=== PATIENT | female | born 1975 | race Caucasian/White ===

== ENCOUNTER → 2017-12-22 17:48 | Outpatient (CLI) | payer BC, SELFPAY ==
--- NOTE | 2017-12-22 17:52 | CT_ITS ---
STUDY: CT RIGHT ELBOW WITHOUT CONTRAST REASON FOR EXAM: Female, 42 years old. Right elbow fracture. Follow-up RADIATION DOSAGE (If Supplied By Facility): CTDIvol = ( 24.58 ) mGy, DLP = ( 493 ) mGycm TECHNIQUE: Transaxial CT imaging of the elbow was performed. Sagittal and coronal images were reconstructed. Individualized dose optimization techniques were used for this CT. COMPARISON: None. FINDINGS: There is a healing fracture of the radius neck. There is also a healing chip fracture at the coronary process of the ulna. Normal visualized humerus. Normal radiocapitellar and ulnotrochlear articulations. The soft tissue structures are unremarkable. CT/Extremity Upper without Contra IMPRESSION: There is a healing fracture of the radius neck. There is also a healing chip fracture at the coronary process of the ulna. Electronically Signed: Melodie Cameron MD at 6:56 EDT Tel , Service support ,
== END ==
PROVIDERS: Visit Provider Orthopaedic Surgery
DX: S52.131D Displaced fracture of neck of right radius, subsequent encounter for closed fracture with routine healing (principal); X58.XXXD Exposure to other specified factors, subsequent encounter
CPT/HCPCS: 73200

== ENCOUNTER → 2018-02-13 07:07 | Outpatient (CLI) | payer BC, SELFPAY ==
--- NOTE | 2018-02-13 07:30 | RAD_ITS ---
STUDY: X-RAY CHEST REASON FOR EXAM: Female, 43 years old. Shortness of breath x4 months TECHNIQUE: PA and lateral views of the chest. COMPARISON: None. FINDINGS: The lungs are clear and expanded. There is no demonstrated pleural abnormality. Normal size heart. Normal mediastinum and angel. Normal visualized pulmonary arteries. Normal visualized aortic arch and descending thoracic aorta. Normal visualized thoracic spine. Normal visualized ribs, clavicles, and shoulders. There is no demonstrated abnormality of the visualized soft tissue structures of the upper abdomen. RAD/Chest PA and Lateral IMPRESSION: Normal x-ray examination of the chest. Electronically Signed: Jairo Castro DO at 16:42 EDT Tel , Service support ,
[2018-02-13 10:27] LABS: Absolute Lymphocyte Count 2.45 X10^3/ul (0.83-4.51); Absolute Neutrophil Count 7.6 X10^3/uL (2.0-7.7); Basophil# 0.05 X10^3/uL; Basophil% 0.4 % (0-1); Eosinophil# 0.23 X10^3/uL; Eosinophils% 2.1 % (0-5); Hematocrit 43.3 % (37-47); Hemoglobin 13.9 g/dl (12.0-15.0); Lymphocyte # 2.45 X10^3/ul (4.0); Mean Corp Hgb Conc 32.1 g/gl (32-36); Mean Corpuscular Hgb 26.9 pg (27.0-32.0); Mean Corpuscular Volume 83.8 fL (81-99); Mean Platelet Vol. 10.5 fl (6.2-12.0); Monocyte% 7.2 % (0-10); Neutrophil # 7.57 X10^3/uL (2.7-7.7); Neutrophil % 67.9 % (47-70); Platelet Count 359 K/mm3 (150-450); RBC Distribution Width CV 14.7 % (11.6-14.6); RBC Distribution Width SD 44.3 fl (35.1-43.9); Red Blood Count 5.17 M/mm3 (4.2-5.4); White Blood Count 11.1 K/mm3 (4.4-11.0)
[2018-02-13 10:28] LABS: POSITIVE COUNT NO; POSITIVE DIFFERENTIAL NO; POSITIVE MORPHOLOGY NO
[2018-02-13 10:51] LABS: Erythrocyte Sedimentation Rate 78 mm/hr (0-20)
[2018-02-13 10:55] LABS: ALB/GLOB Ratio 0.6 RATIO (0.9-2.4); AST(SGOT) 71 U/L (15-37); Alanine Aminotransfer ALT/SGPT 59 U/L (13-56); Albumin, Serum 3.2 g/dL (3.2-5.0); Alkaline Phosphatase 108 U/L (45-117); Anion Gap 7 (5-15); BUN 7 mg/dL (7-18); BUN/Creat Ratio 8.7 RATIO (10-20); Calcium,Total 8.8 mg/dL (8.5-10.1); Chloride 106 mmol/L (98-107); EST Glomerular Filtration Rate 83 mL/min (>60); Est Glom Filt Rate - Afr Amer 100 mL/min (>60); Glucose 117 mg/dL (74-106); Potassium 3.7 mmol/L (3.5-5.1); Protein, Total 8.2 g/dL (6.4-8.2); Sodium Level 138 mmol/L (136-145)
[2018-02-14 13:07] LABS: ASO Titer 76.8 IU/mL (0.0-200.0)
[2018-02-16 16:09] LABS: Anti-Centromere B Ab <0.2 AI (0.0-0.9); Anti-Chromatin <0.2 AI (0.0-0.9); Anti-Jo <0.2 AI (0.0-0.9); Anti-Scleroderma-70 AB <0.2 AI (0.0-0.9); Anti-ribosomal P Antibodies <0.2 AI (0.0-0.9); RNP Ab 0.5 AI (0.0-0.9); SJOGREN'S Anti-SS-A test < 0.2 AI (0.0-0.9); SJOGREN'S Anti-SS-B test < 0.2 AI (0.0-0.9); Smith Ab <0.2 AI (0.0-0.9); Smith/RNP Ab <0.2 AI (0.0-0.9)
[2018-02-17 11:42] LABS: Anti-dsDNA Ab 3 IU/mL (0-9)
== END ==
PROVIDERS: Visit Provider Dermatology Pediatric Dermatology
DX: L52 Erythema nodosum (principal)
CPT/HCPCS: 36415; 71046; 80053; 85025; 85652; 86038; 86060; 86225; 86235

== ENCOUNTER → 2018-07-06 10:33 | Outpatient (CLI) | payer BC, SELFPAY ==
[2018-07-06 11:56] LABS: Absolute Lymphocyte Count 2.41 X10^3/ul (0.83-4.51); Absolute Neutrophil Count 7.7 X10^3/uL (2.0-7.7); Basophil# 0.03 X10^3/uL; Basophil% 0.3 % (0-1); Eosinophils% 2.7 % (0-5); Hematocrit 40.3 % (37-47); Hemoglobin 12.8 g/dl (12.0-15.0); Lymphocyte # 2.41 X10^3/ul (4.0); Lymphocyte % 21.7 % (19-41); Mean Corp Hgb Conc 31.8 g/gl (32-36); Mean Corpuscular Hgb 25.5 pg (27.0-32.0); Mean Corpuscular Volume 80.3 fL (81-99); Mean Platelet Vol. 10.3 fl (6.2-12.0); Monocyte# 0.66 X10^3/uL; Monocyte% 5.9 % (0-10); Neutrophil # 7.67 X10^3/uL (2.7-7.7); Platelet Count 306 K/mm3 (150-450); RBC Distribution Width SD 43.4 fl (35.1-43.9); Red Blood Count 5.02 M/mm3 (4.2-5.4); White Blood Count 11.1 K/mm3 (4.4-11.0)
[2018-07-06 11:59] LABS: POSITIVE COUNT NO; POSITIVE DIFFERENTIAL NO; POSITIVE MORPHOLOGY NO
[2018-07-06 12:03] LABS: Erythrocyte Sedimentation Rate 55 mm/hr (0-20)
[2018-07-06 12:30] LABS: Anion Gap 10 (5-15); BUN 7 mg/dL (7-18); BUN/Creat Ratio 8.3 RATIO (10-20); Calcium,Total 8.8 mg/dL (8.5-10.1); Chloride 101 mmol/L (98-107); Creatinine, Serum 0.85 mg/dL (0.55-1.02); EST Glomerular Filtration Rate 78 mL/min (>60); Est Glom Filt Rate - Afr Amer 94 mL/min (>60); Glucose 170 mg/dL (74-106); Potassium 3.6 mmol/L (3.5-5.1); Sodium Level 137 mmol/L (136-145)
[2018-07-10 06:07] LABS: HEPATITIS B SURFACE AG Negative (Negative); Hepatitis A AB, Total Negative (Negative); Hepatitis A IgM Antibody Negative (Negative); Hepatitis B Core AB IgM Negative (Negative); Hepatitis B Core Ab Total Negative (Negative); Hepatitis C Ab <0.1 s/co ratio (0.0-0.9); QNTFERON TB Ag Minus Nil Value < 0 IU/mL (.); QNTFERON TB Ag Value 0.12 IU/mL (.); QNTFERON TB Mitogen Value > 10.00 IU/mL (.); QNTFERON TB Nil Value 0.15 IU/mL (.)
[2018-07-10 10:56] LABS: Hep B Surface Antibodies Non Reactive (.); QNTIFERON TB Gold Negative (Negative)
== END ==
PROVIDERS: Family Provider Family Medicine; PCP Family Medicine; Visit Provider Dermatology Pediatric Dermatology
DX: L40.0 Psoriasis vulgaris (principal); L52 Erythema nodosum; Z79.899 Other long term (current) drug therapy
CPT/HCPCS: 36415; 80048; 85025; 85652; 86480; 86704; 86705; 86706; 86708; 86709; 86803; 87340

== ENCOUNTER → 2018-07-23 15:03 | Outpatient (CLI) | payer BC, SELFPAY ==
--- NOTE | 2018-07-23 15:17 | RAD_ITS ---
STUDY: X-RAY - ABDOMEN/PELVIS REASON FOR EXAM: Female, 43 years old. Pain in both sides. History of kidney stone, ileostomy 2011. TECHNIQUE: Two AP supine views of the abdomen and pelvis. There is obesity, the entirety of soft tissue is not imaged. COMPARISON: CT abdomen pelvis 10/20/2017.. FINDINGS: Normal visualized lung bases. There is an unremarkable bowel gas pattern. There is no demonstrated free abdominal air. Right abdominal small bowel gas consistent with ileostomy. There are calcified phleboliths in the pelvis. Normal visualized osseous structures. RAD/Abdomen Single View IMPRESSION: Bilateral renal calculi seen on previous CT are not visualized. This may be due to body habitus. Electronically Signed: Azalea Arora MD at 7:31 EDT , Service support ,
== END ==
PROVIDERS: Family Provider Family Medicine; PCP Family Medicine; Referring Provider Urology; Visit Provider Urology
DX: R31.9 Hematuria, unspecified (principal); N20.1 Calculus of ureter
CPT/HCPCS: 74018; 87077; 87086; 87088; 87186

== ENCOUNTER → 2018-08-10 13:57 | Outpatient (CLI) | payer BC, SELFPAY ==
--- NOTE | 2018-08-10 14:06 | CT_ITS ---
STUDY: CT ABDOMEN AND PELVIS WITHOUT CONTRAST REASON FOR EXAM: Female, 43 years old. Hematuria. Bilateral flank pain. Recent passage of a stone. The patient has a history of a history of colitis with ileostomy. RADIATION DOSAGE (If Supplied By Facility): CTDIvol = ( 24.18 ) mGy, DLP = ( 1141.58 ) mGycm TECHNIQUE: Transaxial images were obtained from the dome of the diaphragm to the symphysis pubis without oral contrast, and without intravenous contrast. Sagittal and coronal images were reconstructed. Individualized dose optimization techniques were used for this CT. COMPARISON: Comparison is made with prior study dated October 20, 2017. FINDINGS: Stable mild increased markings at the left lung base suggestive of early atelectasis and/or scarring. The visualized portions of the heart are within normal limits. There is decreased attenuation of the liver consistent with steatosis. There are multiple small gallstones. Normal spleen. Normal pancreas. Normal bilateral adrenal glands. 3 mm nonobstructive calculus in the lower pole calyx of the right kidney. 3 mm nonobstructive calculus in the lower pole calyx of the left kidney. Normal visualized stomach. An ileostomy is seen in the right lower quadrant. There is evidence of a 4.7 cm defect along the anterior lateral aspect of the right abdominal wall at the site of the ileostomy. This may represent a hernia. This is unchanged. The patient is status post total colectomy. There is scattered atherosclerotic calcification of the abdominal aorta, without a demonstrated aneurysm. Normal inferior vena cava. Normal retroperitoneum. Normal urinary bladder. Normal abdominal wall. Normal osseous structures. CT/Abdomen/Pelvis without Cont IMPRESSION: Small bilateral nonobstructive intrarenal calculi. Status post colectomy with ileostomy in the right lower quadrant. Fatty infiltration of liver. Electronically Signed: Dylan Gross MD at 15:05 EDT Tel [phone], Service support ,
== END ==
PROVIDERS: Family Provider Family Medicine; PCP Family Medicine; Referring Provider Urology; Visit Provider Urology
DX: R31.9 Hematuria, unspecified (principal); R10.9 Unspecified abdominal pain
CPT/HCPCS: 74176

== ENCOUNTER → 2019-04-01 | Outpatient (CLI) | payer BC, SELFPAY ==
[2019-04-02 08:43] LABS: BNP,B-Type NATRIURETIC PEPTIDE 19.4 pg/mL (0-100)
== END | disposition home or self-care (01) ==
LOC: BFHLAB 14:52
PROVIDERS: Family Provider Family Medicine; PCP Family Medicine; Visit Provider Family Medicine
DX: R06.02 Shortness of breath (principal)
CPT/HCPCS: 36415; 83880

== ENCOUNTER → 2019-04-20 | Outpatient (CLI) | payer BC, SELFPAY ==
--- NOTE | 2019-04-20 14:01 | ECHOCS_ITS ---
Reason For Study: SOB Procedure This was a 2D Doppler, Color Flow transthoracic echocardiogram. The study was technically difficult. Contrast injection was performed. Exam performed in department. Left Ventricle Normal LV size. Left ventricular systolic function is normal. The estimated ejection fraction is 55 %. Transmitral doppler flow suggestive of impaired relaxation of left ventricle. No regional wall motion abnormalities noted. Right Ventricle Normal RV size. Normal systolic function. Atria Normal left atrium. Normal right atrium. No doppler evidence for ASD. Mitral Valve There is no mitral annular calcification. Normal mitral valve. Trivial mitral valve insufficiency. Tricuspid Valve Normal tricuspid valve. Trivial tricuspid valve insufficiency. Right ventricular systolic pressure estimated to be 29 mmHg. Aortic Valve Trisinus/trileaflet aortic valve. Normal aortic valve. Pulmonic Valve The pulmonic valve is not well visualized. Great Vessels Normal sized aortic root. Pericardium/Pleural No pericardial effusion. Medication 22 gauge I.V. with prn adaptor inserted into right arm. Diluted definity 4ml given slow IV push to enhance endocardial definition. MMode/2D Measurements & Calculations LVIDd: 4.6 cm IVSd: 1.0 cm Ao root diam: 3.0 cm LVIDs: 3.2 cm LVPWd: 0.80 cm RVDd: 3.6 cm FS: 30.7 % LAV(MOD-bp): 39.4 ml LA A4 area: 11.8 cm2 LA dimension(2D): 4.1 cm LAV(MOD-bp) Indexed: 16.3 ml/m2 LAV(MOD-sp2): 52.8 ml LAV(MOD-sp4): 25.5 ml RA A4 area: 10.3 cm2 Doppler Measurements & Calculations MV E max tanner: 66.8 cm/sec Lat Peak E' Tanner: 8.3 cm/sec Med Peak E' Tanner: 4.5 cm/sec MV A max tanner: 79.4 cm/sec E/E' lat: 8.1 E/E' med: 14.8 MV E/A: 0.84 Ao V2 max: 142.2 cm/sec LV V1 max: 103.6 cm/sec PA V2 max: 108.6 cm/sec Ao max P.1 mmHg LV V1 max P.3 mmHg TR max tanner: 252.7 cm/sec TR max P.6 mmHg Interpretation Summary The study was technically difficult. Contrast injection was performed. Left ventricular systolic function is normal. The estimated ejection fraction is 55 %. Trivial mitral valve insufficiency. Trivial tricuspid valve insufficiency. Right ventricular systolic pressure estimated to be 29 mmHg. Transmitral doppler flow suggestive of impaired relaxation of left ventricle Ordering Physician: Angelica Quezada Referring Physician: Angelica Quezada Performed By: Greyson, Ivana, RDCS
== END | disposition home or self-care (01) ==
LOC: CVS 13:59
PROVIDERS: Family Provider Family Medicine; PCP Family Medicine; Referring Provider Family Medicine; Visit Provider Family Medicine
DX: R06.02 Shortness of breath (principal); I10 Essential (primary) hypertension
CPT/HCPCS: 93306; Q9957; A4216; C8929

== ENCOUNTER 2019-04-22 08:49 | Day surgery (SDC) | payer BC, SELFPAY ==
--- NOTE | 2019-04-21 11:00 | EGD_PTH ---
PATIENT: VENKAT BECERRA LOC: EN U#:[id number] AGE/SX: 44/F ROOM: RE04/22/[address]: Dr. Elva Conley MD : 1975 BED: DIS: 04/22/2019 SPEC #: [id number] RECD: 04/22/19 10:31 STATUS: MALI HEATHER #: [id number] RONALD: 04/21/19 11:[address]: Elva Conley DEPT: SURGICAL PATHOLOGY RECD BY: Zachary Hastings ENTERED: 04/22/19 10:57 SP TYPE: EGD BIOPSY OTHR DR: Dr. Angelica Quezada MD Tissues: Gastric mucous membrane Procedures: Surgery Specimen Level IV HEADER OPERATION[place] [place] DIAGNOSIS: Anemia TISSUE SUBMITTED: Antrum biopsy for H. pylori and path MICROSCOPIC DIAGNOSIS Gastric antrum, biopsy: Chronic gastritis, mild to moderate. See comment. AM:christiana 04/23/19 COMMENT The results of immunohistochemistry for Helicobacter pylori will be reported separately ([id number]). MICROSCOPIC DESCRIPTION Slides are reviewed. GROSS DESCRIPTION Received in fixative is one container labeled with the patient's name and designated antrum biopsy. The specimen consists of multiple irregular fragments of light bob soft tissue that in aggregate measure 0.5 x 0.3 x 0.1 cm. The specimen is totally submitted in one cassette. / SJ:rg 04/22/19 TC:3 CPT: 83806
[2019-04-22 09:15] VITALS: BP 126/70; PULSE 75; RESP 14; TEMP 35.3; O2SAT 95; BMI 46.5
--- NOTE | 2019-04-22 09:24 | PCM.PN.BLA ---
Progress Note H&P on chart and reviewed, no changes from H&P
[2019-04-22 09:35] LABS: Bedside Glucose 240 mg/dL (70-110)
[2019-04-22 10:15] VITALS: BP 126/70; BP 136/70; PULSE 70; RESP 18; TEMP 36.3; O2SAT 97
--- NOTE | 2019-04-22 10:15 | OP.ENDO_ITS ---
04/22/2019 Angelica Quezada [place] [id number] [address] Re : Upper GI endoscopy procedure for Mone Xavier Dear Dr. Quezada This procedure was performed on April. My impressions and recommendations are as follows: Impressions : - Normal first portion of the duodenum and second portion of the duodenum. - Erythematous mucosa in the gastric body. Biopsied. - Small hiatal hernia. Recommendations : - Discharge patient to home (ambulatory). - Resume previous diet. - Continue present medications. - Await pathology results. - My office will telephone with pathology results in 1-2 weeks My findings are described in the full procedure note, which is enclosed. If I can be of further assistance, please feel free to contact me at Doctor phone number(s): , Work: . Sincerely, MD Elva Mo MD 04/22/2019 10:14:46 AM This report has been signed electronically.
[2019-04-22 10:20] VITALS: BP 126/70; BP 143/69; PULSE 73; RESP 18; O2SAT 96
[2019-04-22 10:25] VITALS: BP 126/70; BP 142/74; PULSE 68; RESP 18; O2SAT 94
[2019-04-22 10:30] VITALS: BP 126/70; BP 148/66; PULSE 66; RESP 18; TEMP 36.3; O2SAT 94
[2019-04-22 10:39] VITALS: BP 126/70
--- NOTE | 2019-04-22 11:00 | IMM_PTH ---
PATIENT: VENKAT BECERRA LOC: [facility] U#:[id number] AGE/SX: 44/F ROOM: RE04/22/[address]: Dr. Elva Conley MD : 1975 BED: DIS: 04/22/2019 SPEC #: [id number] RECD: 04/22/19 11:29 STATUS: MALI REQ #: [id number] RONALD: 04/22/19 11:[address]: Elva Cnoley DEPT: IMMUNOHISTOCHEMISTRY RECD BY: Lenora Campuzano ENTERED: 04/22/19 11:29 SP TYPE: IMMUNO OTHR DR: Dr. Angelica Quezada MD Tissues: Stomach, NOS Procedures: H Pylori (initial) PHYSICIAN & INSTITUTION [place] [id number] SPECIMEN INFORMATION: Tissue Source: Antrum biopsy Clinical Info: Anemia Specimen Number: [id number] CPT code: 80928 METHODOLOGY: Deparaffinized sections of prefer/formalin-fixed tissue or PAP/DQ stained slides are incubated with monoclonal/polyclonal antibodies/oligonucleotide probes. Localization is made via biotin free immunoperoxidase method. Appropriate controls are performed and reacted as expected. Results on target cell population are indicated in the following table: RESULTS: ANTIBODY / CLONE RESULT H Pylori (polyclonal) negative These tests were developed and their performance characteristics determined by [facility]. They may not have been cleared or approved by the U.S. Food and Drug Administration. The FDA has determined that such clearance or approval is not necessary. INTERPRETATION: Antrum biopsy: Negative for Helicobacter pylori organisms. AM:christiana 04/23/19
== END 2019-04-22 10:57 | disposition home or self-care (01) ==
LOC: EN 08:49 → AC 08:52
PROVIDERS: Family Provider Family Medicine; PCP Family Medicine; Referring Provider Family Medicine; Visit Provider Surgery
PROC: 0DJ08ZZ Inspection of Upper Intestinal Tract, Via Natural or Artificial Opening Endoscopic (ICD-10-PCS; CPT 43235; principal; 2019-04-22 10:55)
DX: K29.50 Unspecified chronic gastritis without bleeding (principal); K44.9 Diaphragmatic hernia without obstruction or gangrene; D50.9 Iron deficiency anemia, unspecified; J45.909 Unspecified asthma, uncomplicated; K21.9 Gastro-esophageal reflux disease without esophagitis; M19.90 Unspecified osteoarthritis, unspecified site; L40.50 Arthropathic psoriasis, unspecified; K51.90 Ulcerative colitis, unspecified, without complications; G47.30 Sleep apnea, unspecified; E66.01 Morbid (severe) obesity due to excess calories; Z68.42 Body mass index [BMI] 45.0-49.9, adult; E11.22 Type 2 diabetes mellitus with diabetic chronic kidney disease; I12.9 Hypertensive chronic kidney disease with stage 1 through stage 4 chronic kidney disease, or unspecified chronic kidney disease; N18.2 Chronic kidney disease, stage 2 (mild); F41.0 Panic disorder [episodic paroxysmal anxiety]; F32.9 Major depressive disorder, single episode, unspecified; Z87.442 Personal history of urinary calculi; Z90.49 Acquired absence of other specified parts of digestive tract; Z79.84 Long term (current) use of oral hypoglycemic drugs; Z79.899 Other long term (current) drug therapy; Z87.891 Personal history of nicotine dependence
CPT/HCPCS: 43239; 82962; 88305; 88342; J7120

== ENCOUNTER → 2019-04-27 | Outpatient (CLI) | payer BC, SELFPAY ==
[2019-04-22 09:15] VITALS: BMI 46.5
--- NOTE | 2019-04-27 08:15 | RAD_ITS ---
STUDY: X-RAY CHEST REASON FOR EXAM: Female, 44 years old. Shortness of breath TECHNIQUE: PA and lateral views of the chest. COMPARISON: February 13, 2018 FINDINGS: There are mild interstitial fibrotic changes of the lower lungs. There is no demonstrated pleural abnormality. Normal size heart. Normal mediastinum and angel. Normal visualized pulmonary arteries. Normal visualized aortic arch and descending thoracic aorta. Normal visualized thoracic spine. Normal visualized ribs, clavicles, and shoulders. There is no demonstrated abnormality of the visualized soft tissue structures of the upper abdomen. RAD/Chest PA and Lateral IMPRESSION: Degenerative changes, as described above. No demonstrated acute cardiopulmonary process. Electronically Signed: Reza Betts MD at 22:05 EDT , Service support ,
== END | disposition home or self-care (01) ==
LOC: HPRAD 08:14
PROVIDERS: Family Provider Family Medicine; PCP Family Medicine; Referring Provider Family Medicine; Visit Provider Family Medicine
DX: R06.02 Shortness of breath (principal)
CPT/HCPCS: 71046

== ENCOUNTER 2019-05-15 03:23 | Emergency (ER) | payer BC, SELFPAY ==
[2019-05-15 03:25] VITALS: BP 188/108; PULSE 92; RESP 22; TEMP 37.8; O2SAT 97; BMI 48.1
--- NOTE | 2019-05-15 03:43 | ED.DCSUM_ITS ---
History of Present Illness Chief Complaint: Abd Pain Detail of Chief Complaint: GI bleeding, abd pain Informant: Patient, Significant Other - Abdominal Pain/Flank Pain Onset: Today Context: Sudden Onset Timing: Continuous Quality: - - dark blood Location: - - in ileostomy Current Severity: Moderate Maximum Severity: Moderate Worsened by: Nothing Relieved by: Nothing - Nausea/Vomiting/Emesis GI Symptom: Nausea, Vomiting Quality: Nonbilious. Negative for: Blood streaks, Coffee ground, Hematemesis - Diarrhea/Melena/Hematochezia GI Symptom: Hematochezia Onset: Hours - 2 Associated Symptoms: Dysuria, Frequency, Urgency. Negative for: Hematuria Narrative: Patient presents with abdominal pain as well, but really presents because the bleeding in the ileostomy. She has had upper abdominal pain for months, and it is worse in the past day or 2. She also has some pain around her ileostomy in the right lower quadrant which is not new. None of the pain she is having is new. She had a EGD a couple weeks ago, according to records it showed a small amount of inflammation in the gastric antrum, biopsy returned showing chronic gastritis and negative H. pylori testing. She denies having any melena in her ileostomy prior to this. She takes no anticoagulants or antiplatelet medications. She was recently diagnosed with a neuroendocrine tumor in her pancreas by CT and subsequently MRI, she is awaiting a blood test to come back to determine further treatment, following with Dr. Melton. Also, she has been having urinary symptoms for several days, her primary doctor called in 3 days of [facility] for that. She has not had a urinalysis yet. She is only taken 1 of the pills and still has the urinary symptoms. - Past Medical History (1) Neuroendocrine tumor of pancreas Status: Chronic (2) GERD (gastroesophageal reflux disease) Status: Chronic (3) HTN (hypertension) Status: Chronic (4) Nephrolithiasis Status: Chronic (5) Psoriasis Status: Chronic (6) Ulcerative colitis Status: Chronic Comment: s/p total colectomy Ileostomy bag Past Medical History - Allergies and Home Meds Allergies/Adverse Reactions: Allergies codeine Allergy (Verified 10/20/17 18:43) Anaphylaxis hydrocodone bitartrate [From Vicodin] Allergy (Verified 04/20/19 11:34) Rash PT STATES RASH ONLY latex Allergy (Verified 10/20/17 18:43) Anaphylaxis oxycodone HCl [From Percocet] Allergy (Verified 10/20/17 18:43) Anaphylaxis Primary Care Physician: Angelica Quezada MD [Primary Care Provider] - Surgical History: appendectomy, herniorrhaphy Lives: Spouse/ Significant Other Smoking Status: Former smoker Drugs: None - Family History Maternal Family History: Reports: No pertinent history Review of Systems General: Denies: Chills, Fever, Sweats Eyes: Denies: Visual changes - bilaterally, Diplopia ENT: Denies: Rhinorrhea, Sore throat Cardiovascular: Denies: Chest pain, Palpitations Respiratory: Denies: Dyspnea, Cough, Dyspnea on exertion Gastrointestinal: Reports: Abdominal pain, Nausea, Vomiting, Hematochezia. Denies: Diarrhea, Melena Genitourinary: Reports: Dysuria, Frequency. Denies: Hematuria Musculoskeletal: Reports: Back pain - Abdominal pain radiates in the back, which is not new. Denies: Extremity Pain Skin: Denies: Rash, Wounds Neurological: Denies: Headache, Weakness, Numbness Physical Exam Vital Signs/Narrative: Vital Signs Temp Pulse Resp BP Pulse Ox 05/15/19 03:25 100.0 F H 92 22 H 188/108 H 97 General: Well nourished, Well developed, Obese, No Acute Distress Head: Normocephalic, Atraumatic Eyes: Perrl, EOMI ENT: Moist mucous membranes, No rhinorrhea Neck: Supple, Nontender Cardiovascular: Regular rate, Regular rhythm, No murmurs Respiratory: No distress, CTA bilaterally, Chest nontender Abdomen: Soft, Nondistended, Normal bowel sounds, No masses, Tender - Throughout upper abdomen, worst epigastric, also just right of ileostomy mildly, - - Normal-appearing stool present and ileostomy along with dark red blood, does not appear to be any active hemorrhaging. Negative for: Guarding, Rebound tenderness Back: Nontender, Normal Inspection Extremities: Nontender, No edema Skin: Normal color, No rash, No Trauma Neurological: Alert, Oriented x3, Cranial nerves II-XII grossly intact, Normal Strength, Normal Sensation, Normal Gait Psychological: Normal affect, Normal Mood Diagnostic/Tx/Re-eval Laboratory Results 05/15/19 05/15/19 05/15/19 03:37 03:37 03:53 WBC 12.7 H RBC 5.34 Hgb 16.4 H Hct 48.9 H MCV 91.6 MCH 30.7 MCHC 33.5 RDW Std Deviation 52.1 H RDW Coeff of Eleuterio 15.6 H Plt Count 232 MPV 9.7 Immature Gran % (Auto) 0.900 Neut % (Auto) 67.4 Lymph % (Auto) 22.8 Baxter % (Auto) 5.8 Eos % (Auto) 2.6 Baso % (Auto) 0.5 Absolute Neuts (auto) 8.5 H Absolute Lymphs (auto) 2.88 Nucleated RBC % 0 Sodium 135 L Potassium 3.5 Chloride 97 L Carbon Dioxide 29.0 Anion Gap 9 BUN 6 L Creatinine 1.01 Estim Creat Clear Calc 68.40 Est GFR (MDRD) Af Amer 76 Est GFR (MDRD) Non-Af 63 BUN/Creatinine Ratio 5.9 L Glucose 277 H Calcium 9.0 Total Bilirubin 0.50 AST 46 H ALT 56 Alkaline Phosphatase 176 H Total Protein 8.3 H Albumin 3.1 L Globulin 5.2 H Albumin/Globulin Ratio 0.6 L Lipase 178 Urine Color Urine Clarity Urine pH Ur Specific [place] Urine Protein Urine Glucose (UA) Urine Ketones Urine Occult Blood Urine Nitrite Urine Bilirubin Urine Urobilinogen Ur Leukocyte Esterase Urine RBC Urine WBC Ur Squamous Epith Cells Urine Bacteria Urine Mucus Blood Type O POSITIVE Antibody Screen NEGATIVE 05/15/19 04:53 WBC RBC Hgb Hct MCV MCH MCHC RDW Std Deviation RDW Coeff of Eleuterio Plt Count MPV Immature Gran % (Auto) Neut % (Auto) Lymph % (Auto) Baxter % (Auto) Eos % (Auto) Baso % (Auto) Absolute Neuts (auto) Absolute Lymphs (auto) Nucleated RBC % Sodium Potassium Chloride Carbon Dioxide Anion Gap BUN Creatinine Estim Creat Clear Calc Est GFR (MDRD) Af Amer Est GFR (MDRD) Non-Af BUN/Creatinine Ratio Glucose Calcium Total Bilirubin AST ALT Alkaline Phosphatase Total Protein Albumin Globulin Albumin/Globulin Ratio Lipase Urine Color Yellow Urine Clarity Sl. Cloudy Urine pH 5.0 Ur Specific [place] 1.020 Urine Protein 30 H Urine Glucose (UA) 1000 H Urine Ketones Negative Urine Occult Blood 10 H Urine Nitrite Negative Urine Bilirubin Negative Urine Urobilinogen Normal Ur Leukocyte Esterase 500 H Urine RBC 0-5 SEEN Urine WBC 25-50 SEEN Ur Squamous Epith Cells 0-5 SEEN Urine Bacteria RARE Urine Mucus 0 SEEN Blood Type Antibody Screen - Medical Decision Making Patient is not hemorrhaging into her ileostomy, and her hemoglobin is 16+. Furthermore, she is showing no signs of dehydration causing this number to look elevated, with a BUN of 6. This also argues against upper source of her GI bleeding. Therefore the area of gastritis that was recently seen on EGD is unlikely to be the source of bleeding, especially since she has no hematemesis or coffee-ground emesis. Her hemoglobin is probably high because she is iron deficient and recently had several iron infusions. Urinalysis shows signs of infection, which is not surprising given her symptoms. Cipro is no longer indicated as first-line treatment for cystitis. I do not think she has pyelonephritis. We will give her a dose of Rocephin in addition to a short course of Bactrim. Discussed the lower GI bleeding with Dr. Conley, who did her scope a couple weeks ago. Based on [id number] bleeding in her ileostomy, no new abdominal pains, and a hemoglobin of 16 with no tachycardia or hypotension, she agrees that outpatient follow-up with her surgeon at [facility] would be reasonable unless she develops life-threatening bleeding in which case, return to the ER immediately would be indicated and advised. I discussed all this with the patient she is comfortable with this plan. ED Disposition - Plan for ED Patient: Disposition: Home or Assisted Living Diagnosis: Lower GI bleeding, Acute cystitis without hematuria, Neuroendocrine tumor of pancreas, Upper abdominal pain, Accelerated hypertension Instructions: When You Have Gastrointestinal (GI) Bleeding Prescriptions: Smz/Tmp Ds [Bactrim Ds] 1 tab PO BID #6 tab Transmission Status: Pending to [id number] Referrals: surgeon, your [Other] (after the weekend if still bleeding) Angelica Quezada MD [Primary Care Provider] - 3-5 Days (For blood pressure recheck) Additional Instructions: Avoid taking any aspirin or ibuprofen while you are bleeding. If you develop severe bleeding, return to the emergency department.
[2019-05-15] MEDS: Ondansetron 4 MG/2 ML Vial IV (03:48)
[2019-05-15] MEDS: Morphine 4 MG/ML Syringe IV (03:52)
[2019-05-15 04:04] LABS: Absolute Lymphocyte Count 2.88 X10^3/uL (0.83-4.51); Absolute Neutrophil Count 8.5 X10^3/uL (2.0-7.7); Basophil# 0.06 X10^3/uL; Basophil% 0.5 % (0-1); Eosinophil# 0.33 X10^3/uL; Eosinophils% 2.6 % (0-5); Hematocrit 48.9 % (37-47); Hemoglobin 16.4 g/dL (12.0-15.0); Lymphocyte # 2.88 X10^3/ul (4.0); Lymphocyte % 22.8 % (19-41); Mean Corp Hgb Conc 33.5 g/dL (32-36); Mean Corpuscular Hgb 30.7 pg (27.0-32.0); Mean Corpuscular Volume 91.6 fL (81-99); Mean Platelet Vol. 9.7 fl (6.2-12.0); Monocyte# 0.74 X10^3/uL; Monocyte% 5.8 % (0-10); NRBC Flagged by Analyzer 0 % (0-5); Neutrophil # 8.52 X10^3/uL (2.7-7.7); Neutrophil % 67.4 % (47-70); Platelet Count 232 K/mm3 (150-450); RBC Distribution Width CV 15.6 % (11.6-14.6); RBC Distribution Width SD 52.1 fl (35.1-43.9); Red Blood Count 5.34 M/mm3 (4.2-5.4); White Blood Count 12.7 K/mm3 (4.4-11.0)
[2019-05-15 04:17] LABS: ALB/GLOB Ratio 0.6 RATIO (0.9-2.4); AST(SGOT) 46 U/L (15-37); Alanine Aminotransfer ALT/SGPT 56 U/L (13-56); Albumin, Serum 3.1 g/dL (3.2-5.0); Alkaline Phosphatase 176 U/L (45-117); Anion Gap 9 (5-15); BUN 6 mg/dL (7-18); BUN/Creat Ratio 5.9 RATIO (10-20); Chloride 97 mmol/L (98-107); Creatinine, Serum 1.01 mg/dL (0.55-1.02); EST Glomerular Filtration Rate 63 mL/min (>60); Est Glom Filt Rate - Afr Amer 76 mL/min (>60); Globulin 5.2 g/dL (2.2-4.2); Glucose 277 mg/dL (74-106); Lipase 178 U/L (73-393); Potassium 3.5 mmol/L (3.5-5.1); Protein, Total 8.3 g/dL (6.4-8.2); Sodium Level 135 mmol/L (136-145)
[2019-05-15 05:05] LABS: Mucous, Urine 0 SEEN /hpf (<or=2+)
--- NOTE | 2019-05-15 05:05 | ED.RN ---
DR ANN ROBISON FOR DR MENDOZA
[2019-05-15 05:14] LABS: Color, Urine Yellow (Yellow); Glucose, Dipstick 1000 mg/dl (Normal); Ketone-Dipstick Negative (Negative); Leukocyte Esterase-Dipstick 500 /ul (Negative); Nitrite-Dipstick Negative (Negative); Occult Blood-Urine 10 /ul (Negative); Protein-Dipstick 30 mg/dl (Negative); Urine Bilirubin Dipstick Negative (Negative); Urine Clarity Sl. Cloudy (Clear); Urine Urobilinogen Normal (Normal)
[2019-05-15 05:15] LABS: Bacteria RARE /hpf (None Seen); Red Blood Cells-Urine 0-5 SEEN /hpf (0-5); Squamous Epithelial Cells - UA 0-5 SEEN /hpf (5-10); White Blood Cells 25-50 SEEN /hpf (0-5)
[2019-05-15 05:23] VITALS: BP 147/94; RESP 15; O2SAT 91
[2019-05-15] MEDS: HYDROmorphone 1 MG/ML Syringe IV (05:25)
[2019-05-15] MEDS: Ceftriaxone 1 GM/50 ML BAG IV (05:29)
[2019-05-15 06:02] VITALS: BP 133/83; PULSE 77; RESP 15; O2SAT 91
== END 2019-05-15 06:15 | disposition home or self-care (01) ==
PROVIDERS: Emergency Provider Emergency Medicine; Family Provider Family Medicine; PCP Family Medicine
DX: K92.1 Melena (principal); N30.00 Acute cystitis without hematuria; R10.10 Upper abdominal pain, unspecified; I10 Essential (primary) hypertension; K21.9 Gastro-esophageal reflux disease without esophagitis; K51.90 Ulcerative colitis, unspecified, without complications; L40.9 Psoriasis, unspecified; E66.9 Obesity, unspecified; E61.1 Iron deficiency; D3A.8 Other benign neuroendocrine tumors; Z93.2 Ileostomy status; Z87.442 Personal history of urinary calculi; Z79.4 Long term (current) use of insulin; Z79.84 Long term (current) use of oral hypoglycemic drugs; Z79.899 Other long term (current) drug therapy; Z87.891 Personal history of nicotine dependence
CPT/HCPCS: 80053; 81001; 83690; 85025; 86850; 86900; 87086; 87088; 87106; 96365; 96374; 96375; 99283; J7050; A4216; J2405

== ENCOUNTER → 2019-05-24 | Outpatient (CLI) | payer BC, SELFPAY ==
[2019-05-15 03:25] VITALS: BMI 48.1
== END | disposition home or self-care (01) ==
LOC: BFHLAB 16:23
PROVIDERS: PCP Family Medicine; Visit Provider Family Medicine
DX: N39.0 Urinary tract infection, site not specified (principal)
CPT/HCPCS: 87086; 87088

== ENCOUNTER → 2019-06-07 | Outpatient (CLI) | payer BC, SELFPAY ==
[2019-05-15 03:25] VITALS: BMI 48.1
--- NOTE | 2019-06-07 09:00 | CYSPIN_PTH ---
PATIENT: VENKAT BECERRA LOC: [facility] U#:[id number] AGE/SX: 44/F ROOM: RE06/07/[address]: Kathy Calvin : 1975 BED: DIS: 06/07/2019 SPEC #: [id number] RECD: 06/08/19 14:04 STATUS: MALI HEATHER #: [id number] RONALD: 06/07/19 09:[address]: Kathy Calvin DEPT: CYTOLOGY RECD BY: Zachary Hastings ENTERED: 06/08/19 14:04 SP TYPE: CYSPIN FL OTHR DR: MD Kathy Pena, [employer] Tissues: Urine Procedures: Pap Stain (control) Special Stain Group II Cytospin Fluid HEADER OPERATION: Not noted PRE-OP DIAGNOSIS: Hematuria TISSUE SUBMITTED: Urine DIAGNOSIS CYTOLOGY Urine for cytology (Cytospin): Atypical urothelial cells noted, favor reactive. Marked acute inflammation. A few crystals are also noted. See comment. SINTIA:saul 06/09/19 COMMENT Repeat cytology is suggested after treatment for inflammation, if clinically indicated. Case has been reviewed in consultation with Dr. Delarosa who concurs with the above diagnosis. IDC:AM CYTOLOGY STUDY Slides are reviewed. CYTOLOGY GROSS Received is 25 ml of cloudy mercedes fluid labeled with the patient's name and and designated per the requisition as urine. Submitted for cytology preparation. /RB:cc 06/08/19 TC: 2 CPT: 38840
[2019-06-07 17:36] LABS: Cytology, Body Fluid / CSF SEE PATHOLOGY REPORT
== END | disposition home or self-care (01) ==
LOC: LABSPEC 17:21
PROVIDERS: Family Provider Family Medicine; PCP Family Medicine; Referring Provider Nurse Practitioner Adult Health
DX: R31.9 Hematuria, unspecified (principal)
CPT/HCPCS: 87077; 87086; 87088; 87186; 88108; 88313

== ENCOUNTER 2019-06-16 06:48 | Day surgery (SDC) | payer BC, SELFPAY ==
[2019-06-16] VITALS (10 sets, daily range): BP systolic 114–161; BP diastolic 72–102; PULSE 80–93; RESP 16–18; TEMP 35.9–36.4; O2SAT 92–98; BMI 47.2
[2019-06-16 07:18] LABS: Internal QC Validated? YES +Cl - CLEAR BKGD; Pregnancy, Urine Negative Negative
[2019-06-16 07:26] LABS: Bedside Glucose 298 mg/dL (70-110)
[2019-06-16] MEDS: Lactated Ringers 1,000 ML 100 ML IV ×2 (07:32→13:44)
[2019-06-16] MEDS: Cefazolin 2 GM in 0.9% Normal Saline 100 ML IV (08:46)
--- NOTE | 2019-06-16 08:50 | DCINST_ITS ---
Discharge Diet: Light diet - advance as tolerated Discharge Activity: Return to Normal Activity Call your doctor if your incision/area has: Sudden Increased Bleeding Call your doctor if you observe: Fever of 101 or Higher Instructions: Treating Kidney Stones: Ureteroscopic Stone Removal Allergies/Adverse Reactions: Allergies codeine Allergy (Verified 06/15/19 11:10) Anaphylaxis hydrocodone bitartrate [From Vicodin] Allergy (Verified 06/15/19 11:10) Rash PT STATES RASH ONLY latex Allergy (Verified 06/15/19 11:10) Anaphylaxis oxycodone HCl [From Percocet] Allergy (Verified 06/15/19 11:10) Anaphylaxis Medications to take at Discharge Albuterol Aerosols [Ventolin Aerosols] 2.5 mg INHALATION Q4H PRN PRN 08/25/13 Albuterol Inhaler [Ventolin Hfa] 2 puff INHALATION PRN PRN 08/25/13 Atenolol [Tenormin (beta abhi)] 25 mg PO DAILY 08/25/13 Omeprazole [Prilosec] 20 mg PO DAILY 08/25/13 Cetirizine HCl [Zyrtec] 10 mg PO DAILY PRN PRN 10/23/14 Budesonide/Formoterol 160/4.5 [Symbicort 160/4.5 Mcg Inhaler (SP)] 2 puff INHALATION BID #1 inhaler 11/10/15 Potassium Citrate [Urocit-K] 10 meq PO BID 02/21/16 Allopurinol 300 mg PO DAILY 10/20/17 Duloxetine Hcl [Cymbalta] 60 mg PO DAILY 10/20/17 Glipizide [Glipizide ER] 10 mg PO BID 04/20/19 Insulin Lispro [Humalog KwikPen] 0 unit SQ BID 05/15/19 Amoxicillin 875 mg PO TID 06/15/19 Cephalexin [Keflex] 500 mg PO Q8 #10 cap 06/16/19 Ketorolac [Toradol] 10 mg PO Q6H PRN PRN #10 tab 06/16/19 The following prescriptions were given: Cephalexin [Keflex] 500 mg PO Q8 #10 cap Prescription Printed Ketorolac [Toradol] 10 mg PO Q6H PRN PRN #10 tab PRN Reason: Pain Prescription Printed Primary Care Physician: Angelica Quezada MD [Primary Care Provider] - Test Results: Test results from this visit will be discussed in further detail at your follow- up appointment, if applicable. Please Follow Up With: Ranjan Kemp MD When: in 2 weeks, please call to make an appointment.
--- NOTE | 2019-06-16 09:38 | PCM.OPRPT ---
Report of Operation Date of Procedure: 06/16/19 Pre-Operative Diagnosis: Bilateral renal calculi with intermittent obstruction Post-Operative Diagnosis: Same Surgery/Procedure Performed:: Cystoscopy, left retrograde pyelogram, interpretation fluoroscopic images, left ureteroscopy laser lithotripsy of stone no stent. Right retrograde pyelogram, interpretation fluoroscopic images, right ureteroscopy laser lithotripsy of stone no stent. Description of Surgical Findings:: 44-year-old female with bilateral kidney stones presents today for bilateral ureteroscopy. She was taken back to the operating room after smooth induction of anesthesia he was placed in dorsolithotomy position the urethra and vaginal area were prepped and draped in usual sterile fashion, went into the bladder with a 21 Congolese rigid cystourethroscope inspected the entire bladder there were no tumors or stones within the bladder the trigone was normal the left and right ureter orifice were normal. I think cannulated the left ureteral orifice with a Glidewire, 0.035 flexible Glidewire advanced this up the ureter over the Glidewire I then advanced a dual-lumen catheter I was able to then perform a retrograde pyelogram to ensure that was in the ureter contrast went up into the kidney filled the kidney nicely after looking at the retrograde pyelogram I then flushed the port with normal saline and then placed a second Glidewire 0.35 flexible Glidewire. So at this point I then had a wire for safety and a working wire. Over the working wire went in with the flexible ureteroscope was able to get into the kidney and ureter easily without any problems. I then inspected the kidney upper pole midpole lower pole and I found the stone in the upper pole is about 5 mm in size I then performed laser lithotripsy in the stone until fragments a little tiny pieces that should pass on her own I inspected upper pole midpole lower pole again no other major fragments were seen I then worked my way down the ureter there is no tear injury and along the course of the ureter since the stones are small that should pass on her own decided not to leave a stent and I drained the bladder I then went back in. Identified the right ureteral orifice, I cannulated the right ureter orifice with a 0.035 flexible Glidewire advanced a wire up in the kidney over the wire went on with a dual-lumen catheter performed a retrograde pyelogram, after looking at the retrograde pyelogram that I placed a second wire up into the right kidney I then had a safety wire and a working wire over the working wire went in with a flexible ureteroscope was able to get into the kidney quite easily inspected the upper pole midpole lower pole I found the stone in the lower pole of the right kidney stone was then lasered using laser lithotripsy joules settings were 15 Hz and 0.6 J. After lasering the stone little tiny pieces with fragments of passing around the went were quite my way down the ureter no tear injury along the ureter was noted therefore no stent was placed small fragments were lasered should pass on her own. I then drained the bladder patient's anesthetic reversed no stents were placed and I will see her in a few weeks for follow-up. Type of Anesthesia:: General Drains: none - Admit VTE Documentation VTE Present on Admission: No VTE Mechan Device Prophylaxis: SCD's
[2019-06-16] MEDS: Ketorolac 15 MG/ML Vial IV (10:01)
[2019-06-16 10:11] LABS: Bedside Glucose 218 mg/dL (70-110)
[2019-06-16] MEDS: HYDROmorphone 2 MG TABLET PO (11:19)
[2019-06-16] MEDS: Cefazolin 1 GM/50 ML BAG IV (14:25)
[2019-06-16 15:16] LABS: Bedside Glucose 282 mg/dL (70-110)
--- NOTE | 2019-06-17 07:39 | OP.PCM_ITS ---
Report of Operation Date of Procedure: 06/16/19 Pre-Operative Diagnosis: severe renal colic Post-Operative Diagnosis: same Surgery/Procedure Performed:: cystoscopy bilateral stents Description of Surgical Findings:: 44-year-old female who undergone bilateral ureteroscopy with no stents he requested no stents for severe stent pain in the past. Procedure went well and did not place stents on either side. Unfortunately in the PACU patient had severe amount of pain and the pain would not resolve in its own or with pain medication, and therefore she?s taken back to surgery to place stents. Patient was taken back to the operating room after induction of a Mac local she is placed in dorsal lithotomy position, went in the bladder events a wire up in the right kidney over the wire place stents six Romanian by [address] ring on it for easy extraction, went to the left side Rodriguez wire up in the left kidney about the stent over this and left the string and the stent. Drained the bladder patient aesthetic was reversed taken back the PACU in good condition. Type of Anesthesia:: Local MAC Drains: stents - Admit VTE Documentation VTE Present on Admission: No
== END 2019-06-16 16:29 | disposition home or self-care (01) ==
LOC: SDC 06:48 → AC 06:49
PROVIDERS: Anesthesiology; Family Provider Family Medicine; PCP Family Medicine; Referring Provider Urology; Visit Provider Urology
PROC: 0TJ98ZZ Inspection of Ureter, Via Natural or Artificial Opening Endoscopic (ICD-10-PCS; CPT 52352; principal; 2019-06-16 08:40)
PROC: (CPT 52332; principal; 2019-06-16 14:10)
DX: N20.2 Calculus of kidney with calculus of ureter (principal); E11.9 Type 2 diabetes mellitus without complications; F41.9 Anxiety disorder, unspecified; F32.9 Major depressive disorder, single episode, unspecified; K21.9 Gastro-esophageal reflux disease without esophagitis; I10 Essential (primary) hypertension; J45.909 Unspecified asthma, uncomplicated; M79.7 Fibromyalgia; L40.52 Psoriatic arthritis mutilans; Z79.899 Other long term (current) drug therapy; Z79.4 Long term (current) use of insulin; Z79.51 Long term (current) use of inhaled steroids; Z87.891 Personal history of nicotine dependence
CPT/HCPCS: 00910; 00918; 52332; 52353; 76000; 81025; 82962; J7120; C1758; C1769; C2617; J2405

== ENCOUNTER → 2019-06-22 06:57 | Outpatient (CLI) | payer BC, SELFPAY ==
[2019-06-16 07:10] VITALS: BMI 47.2
--- NOTE | 2019-06-22 07:00 | CT_ITS ---
STUDY: CT CHEST WITHOUT CONTRAST REASON FOR EXAM: Female, 44 years old. History of interstitial lung disease, hypertension, asthma neuroendocrine tumor and pancreas RADIATION DOSAGE (If Supplied By Facility): CTDIvol = ( 20.15 ) mGy, DLP = ( 699.82 ) mGycm TECHNIQUE: Transaxial imaging was performed without the administration of intravenous contrast material. Individualized dose optimization techniques were used for this CT. COMPARISON: Report of previous study of 12/06/2011 FINDINGS: There is minimal linear fibrosis of the lung bases and left lingula. There are minimal emphysematous changes of the right middle lobe and right upper lobe. There is no demonstrated pleural abnormality. Normal heart and pericardium. Normal mediastinum. Normal hilar regions. Normal unenhanced pulmonary arteries. Normal aorta arch and descending thoracic aorta. Normal osseous structures. There is no demonstrated abnormality of the visualized upper abdomen. CT/Chest without Contrast IMPRESSION: Minimal linear fibrosis in the lung bases and left lingular. Minimal emphysematous changes of the right middle and upper lobes. Electronically Signed: Terrance Fernando MD at 17:24 EDT , Service support ,
== END ==
PROVIDERS: Family Provider Family Medicine; PCP Family Medicine; Referring Provider Family Medicine; Visit Provider Family Medicine
DX: R93.89 Abnormal findings on diagnostic imaging of other specified body structures (principal); R82.998 Other abnormal findings in urine
CPT/HCPCS: 71250; 87077; 87086; 87088; 87186

== ENCOUNTER → 2020-01-05 11:36 | Outpatient (CLI) | payer BC, SELFPAY ==
[2019-06-16 07:10] VITALS: BMI 47.2
[2020-01-05 15:29] LABS: Absolute Lymphocyte Count 2.13 X10^3/uL (0.83-4.51); Absolute Neutrophil Count 7.7 X10^3/uL (2.0-7.7); Basophil# 0.06 X10^3/uL; Basophil% 0.6 % (0-1); Eosinophils% 2.8 % (0-5); Hematocrit 49.7 % (37-47); Hemoglobin 16.3 g/dL (12.0-15.0); Lymphocyte # 2.13 X10^3/ul (4.0); Lymphocyte % 19.7 % (19-41); Mean Corp Hgb Conc 32.8 g/dL (32-36); Mean Corpuscular Hgb 29.4 pg (27.0-32.0); Mean Corpuscular Volume 89.5 fL (81-99); Mean Platelet Vol. 10.1 fl (6.2-12.0); Monocyte# 0.57 X10^3/uL; Monocyte% 5.3 % (0-10); NRBC Flagged by Analyzer 0 % (0-5); Neutrophil # 7.71 X10^3/uL (2.7-7.7); Platelet Count 229 K/mm3 (150-450); RBC Distribution Width SD 42.6 fl (35.1-43.9); Red Blood Count 5.55 M/mm3 (4.2-5.4); White Blood Count 10.8 K/mm3 (4.4-11.0)
[2020-01-05 15:43] LABS: Anion Gap 9 (5-15); BUN 8 mg/dL (7-18); BUN/Creat Ratio 9.8 RATIO (10-20); Calcium,Total 8.8 mg/dL (8.5-10.1); Chloride 102 mmol/L (98-107); Creatinine, Serum 0.82 mg/dL (0.55-1.02); EST Glomerular Filtration Rate 80 mL/min (>60); Est Glom Filt Rate - Afr Amer 97 mL/min (>60); Glucose 202 mg/dL (74-106); Potassium 3.7 mmol/L (3.5-5.1); Sodium Level 137 mmol/L (136-145)
== END ==
PROVIDERS: PCP Family Medicine; Referring Provider Family Medicine; Visit Provider Family Medicine
DX: R00.2 Palpitations (principal)
CPT/HCPCS: 36415; 80048; 83735; 85025

== ENCOUNTER → 2020-03-15 08:49 | Outpatient (CLI) | payer BC, SELFPAY ==
[2019-06-16 07:10] VITALS: BMI 47.2
[2020-03-15 09:34] LABS: Color, Urine Yellow (Yellow); Glucose, Dipstick 1000 mg/dl (Normal); Ketone-Dipstick 5 mg/dl (Negative); Leukocyte Esterase-Dipstick 25 /ul (Negative); Nitrite-Dipstick Negative (Negative); Occult Blood-Urine 10 /ul (Negative); Protein-Dipstick 30 mg/dl (Negative); Specific Gravity, Urine 1.025 (1.002-1.030); Urine Bilirubin Dipstick 1 mg/dL (Negative); Urine Clarity Sl. Cloudy (Clear); Urine Urobilinogen 1 mg/dl (Normal)
[2020-03-15 09:35] LABS: Internal QC Validated? YES +Cl - CLEAR BKGD; Pregnancy, Urine Negative Negative
== END ==
PROVIDERS: PCP Family Medicine
DX: K80.20 Calculus of gallbladder without cholecystitis without obstruction (principal)
CPT/HCPCS: 81002; 81025; 87086; 87088

== ENCOUNTER 2021-02-05 16:07 | Emergency (ER) | payer BC, SELFPAY ==
[2020-06-28 16:24] VITALS: BMI 47.2
[2021-02-05 16:08] VITALS: BP 168/119; PULSE 123; RESP 18; TEMP 36; O2SAT 94; BMI 44.4
[2021-02-05 16:28] VITALS: BP 169/108; PULSE 111; RESP 16; O2SAT 96
--- NOTE | 2021-02-05 16:46 | CT_ITS ---
INDICATION: epigastric abd pain EXAMINATION: CT Abdomen And Pelvis W/ Contrast Injection TECHNIQUE: Helically acquired images were obtained of the abdomen and pelvis after IV contrast. A radiation dose optimization technique was used for this scan. IV Contrast dosage and agent: 100 cc [id number] Oral contrast: None. COMPARISON: 08/10/2018. FINDINGS: Visualized lung bases: Bibasilar atelectasis. Liver: Unremarkable Gallbladder: Unremarkable Spleen: The spleen is mildly enlarged measuring up to 13.9 cm. Pancreas: There is trace mesenteric fat stranding surrounding the head and uncinate process of the pancreas as well as the second portion of the duodenum. Adrenal Glands: Unremarkable Kidneys: Unremarkable Vasculature: Unremarkable GI Tract: Status post colectomy with ileostomy in the right lower quadrant. There is evidence of a 5.8 cm defect along the anterior lateral aspect of the right abdominal wall at the site of the ileostomy with herniation of fat and small bowel. Lymphadenopathy: None Peritoneum: No ascites. Bladder: Unremarkable Reproductive organs: Unremarkable Bones/Soft tissues: No suspicious osseous or soft tissue lesions CT/Abdomen/Pelvis W IV Cont ONLY IMPRESSION: Subtle inflammation surrounding the pancreatic head/uncinate process and second portion of the duodenum. This could represent groove pancreatitis or duodenitis. Recommend correlation with lipase levels. Mild splenomegaly. Status post colectomy with ileostomy in the right lower quadrant. Electronically Signed: Wing Marino MD at 18:31 EDT Tel , Service support ,
--- NOTE | 2021-02-05 16:46 | EKG12_ITS ---
Test Reason : Blood Pressure : / mmHG Vent. Rate : 094 BPM Atrial Rate : 094 BPM P-R Int : 152 ms QRS Dur : 088 ms QT Int : 352 ms P-R-T Axes : 053 -27 046 degrees QTc Int : 440 ms Normal sinus rhythm Nonspecific ST abnormality Poor R wave progression Inferior PA, age undetermined, cannot be excluded Abnormal ECG Confirmed by AUGUSTUS CARVER, TED ([id number]), restaurant expeditor LUCILA FELICIANO ([id number]) on 02/08/2021 9:04:16 AM Referred By: ZAKIA Confirmed By:TED COFFMAN MD
--- NOTE | 2021-02-05 16:53 | ED.VIS.GI ---
History of Present Illness Chief Complaint: Abd Pain Informant: Patient Narrative: Patient is a 46-year-old female with complex medical history including ulcerative colitis status post colectomy and ileostomy and neuroendocrine tumor of the pancreas as well as diabetes mellitus, asthma, hypertension, Kidney stones and GERD presenting with worsening pain in her epigastric/left upper quadrant. Patient states been present for the past 2 weeks but is worsening today. She developed dry heaving today. Patient states her pain is worse when she eats or drinks. She is try to go to a liquid diet with no improvement. She denies any weight blood in her ostomy but notes that she has had increased green liquid ileostomy output. No other complaints at this time. No associated chest pain, shortness of breath, fever or chills. Patient does need a GI doctor that she is only supposed on the phone, Dr. Torres who had previously prescribed her, hyoscyamine, with no improvement. Prior similar symptoms: Yes - Pancreatitis Past Medical History - Allergies and Home Meds Allergies/Adverse Reactions: Allergies codeine Allergy (Verified 06/28/20 16:15) Anaphylaxis hydrocodone bitartrate [From Vicodin] Allergy (Verified 06/28/20 16:15) Rash PT STATES RASH ONLY latex Allergy (Verified 06/28/20 16:15) Anaphylaxis oxycodone HCl [From Percocet] Allergy (Verified 06/28/20 16:15) Anaphylaxis Primary Care Physician: Angelica Quezada MD [Primary Care Provider] - Past Medical History: - - Neuroendocrine tumor of the neuroendocrine tumor of the pancreas, kidney stones, ulcerative colitis, psoriasis, GERD, headaches, hypertension, diabetes mellitus Surgical History: appendectomy, herniorrhaphy, - - Total colectomy with ileostomy Lives: Spouse/ Significant Other Smoking Status: Former smoker - Family History Maternal Family History: Family History (Last Updated 06/28/20 @ 16:24 by Radha Gallegos) Other Diabetes Heart disease Liver cancer Lung disease Skin cancer Thyroid disorder Family History: Reports: No pertinent history Review of Systems General: Denies: Chills, Fever, Sweats Eyes: Denies: Visual changes - bilaterally, Diplopia ENT: Denies: Rhinorrhea, Sore throat Cardiovascular: Denies: Chest pain, Palpitations Respiratory: Denies: Dyspnea, Cough, Dyspnea on exertion Gastrointestinal: Reports: Abdominal pain, Nausea. Denies: Vomiting, Diarrhea, Melena, Hematochezia Genitourinary: Denies: Dysuria, Hematuria, Frequency Musculoskeletal: Denies: Back pain, Extremity Pain Skin: Denies: Rash, Wounds Neurological: Denies: Headache, Weakness, Numbness Physical Exam Vital Signs/Narrative: Vital Signs Temp Pulse Resp BP Pulse Ox 02/05/21 16:28 111 H 16 169/108 H 96 02/05/21 16:08 96.8 F L 123 H 18 168/119 H 94 Inital Vital Signs reviewed: Yes General: Well nourished, Well developed, No Acute Distress Head: Normocephalic, Atraumatic Eyes: Perrl, EOMI ENT: Moist mucous membranes, No rhinorrhea Neck: Supple, Nontender Cardiovascular: Regular rate, Regular rhythm, No murmurs Respiratory: No distress, CTA bilaterally, Chest nontender Abdomen: Soft, Nondistended, Normal bowel sounds, Tender - epigastric , - - Ileostomy with bilious output. Negative for: Guarding, Rebound tenderness Back: Nontender, Normal Inspection Extremities: Nontender, No edema Skin: Normal color, No rash Neurological: Alert, Oriented x3, Cranial nerves II-XII grossly intact, Normal Strength, Normal Sensation Psychological: Normal affect, Normal Mood Diagnostic/Tx/Re-eval Clinical Impression(s) from Imaging Studies Abdomen/Pelvis CT 02/05/21 16:46 IMPRESSION: Subtle inflammation surrounding the pancreatic head/uncinate process and second portion of the duodenum. This could represent groove pancreatitis or duodenitis. Recommend correlation with lipase levels. Mild splenomegaly. Status post colectomy with ileostomy in the right lower quadrant. Electronically Signed: Wing Marino MD at 18:31 EDT Tel , Service support , Laboratory Data 02/05/21 02/05/21 02/05/21 16:34 16:34 17:05 WBC 16.5 H RBC 5.97 H Hgb 17.7 H Hct 52.2 H MCV 87.4 MCH 29.6 MCHC 33.9 RDW Std Deviation 43.5 RDW Coeff of Eleuterio 13.8 Plt Count 273 MPV 10.1 Immature Gran % (Auto) 0.800 Neut % (Auto) 72.7 H Lymph % (Auto) 16.7 L [place] % (Auto) 5.3 Eos % (Auto) 4.0 Baso % (Auto) 0.5 Absolute Neuts (auto) 12.0 H Absolute Lymphs (auto) 2.76 Nucleated RBC % 0 Sodium 133 L Potassium 3.9 Chloride 100 Carbon Dioxide 25.0 Anion Gap 8 BUN 7 Creatinine 0.93 Estim Creat Clear Calc 72.72 Est GFR (MDRD) Af Amer 83 Est GFR (MDRD) Non-Af 69 BUN/Creatinine Ratio 7.5 L Glucose 195 H Lactic Acid 1.8 Calcium 9.4 Total Bilirubin 1.10 H Direct Bilirubin 0.31 H AST 30 ALT 44 Alkaline Phosphatase 184 H Troponin I < 0.015 Total Protein 8.9 H Albumin 3.4 Globulin 5.5 H Lipase 93 Urine Color Urine Clarity Urine pH Ur Specific [place] Urine Protein Urine Glucose (UA) Urine Ketones Urine Occult Blood Urine Nitrite Urine Bilirubin Urine Urobilinogen Ur Leukocyte Esterase Urine RBC Urine WBC Ur Squamous Epith Cells Urine Bacteria Urine Mucus 02/05/21 18:40 WBC RBC Hgb Hct MCV MCH MCHC RDW Std Deviation RDW Coeff of Eleuterio Plt Count MPV Immature Gran % (Auto) Neut % (Auto) Lymph % (Auto) [place] % (Auto) Eos % (Auto) Baso % (Auto) Absolute Neuts (auto) Absolute Lymphs (auto) Nucleated RBC % Sodium Potassium Chloride Carbon Dioxide Anion Gap BUN Creatinine Estim Creat Clear Calc Est GFR (MDRD) Af Amer Est GFR (MDRD) Non-Af BUN/Creatinine Ratio Glucose Lactic Acid Calcium Total Bilirubin Direct Bilirubin AST ALT Alkaline Phosphatase Troponin I Total Protein Albumin Globulin Lipase Urine Color Yellow Urine Clarity Clear Urine pH 6.0 Ur Specific [place] 1.015 Urine Protein 15 H Urine Glucose (UA) Normal Urine Ketones 15 H Urine Occult Blood 10 H Urine Nitrite Negative Urine Bilirubin Negative Urine Urobilinogen Normal Ur Leukocyte Esterase 25 H Urine RBC 0 SEEN Urine WBC 0-5 SEEN Ur Squamous Epith Cells 0-5 SEEN Urine Bacteria 0 SEEN Urine Mucus 0 SEEN - Rhythm Strip Rhythm Strip: Sinus Rhythm Rate: 94 Ectopy: None - EKG Initial EKG Interpretation: Sinus Rhythm, - - Normal sinus rhythm at a rate of 94 Left axis deviation Normal intervals Normal ST segments - Medical Decision Making Patient is evaluated for 2 weeks of worsening epigastric abdominal pain. She has associated nausea and dry heaves. Patient does have tenderness to her epigastric region. Work-up is remarkable for cytosis of 16.5 with no shift. Sodium was mildly low at 133 and a mild elevated glucose of 195. Total bili is mildly elevated 1.1 however patient's status post cholecystectomy. Troponins negative. EKG does not show any acute changes. Do not think is referred cardiac pain. Urinalysis is not consistent with infection. CT of the abdomen pelvis shows possible pancreatitis versus duodenitis. Her lipase is normal. Given patient extensive past medical history including a neuroendocrine tumor of the pancreas case was discussed with our surgery on-call who did not feel that she is appropriate for our [facility] with limited resources. I spoke initially with Dr. Knight who did not feel this was colorectal. I spoke with Dr. Cruz, ACS surgeon on-call at [facility] where patient received the majority of her care. He felt the patient should be evaluated at their ER. Case discussed with their ER physician, Dr. Turcios whotook report. Patient did require 2 doses of pain medication as well as 2 doses of nausea medicine. She is requesting to be transferred by private vehicle due to cost. Patient will be driven directly to [facility] by her . ED Disposition - Plan for ED Patient: Disposition: Acute Care Hospital - Other Diagnosis: Epigastric abdominal pain, Leukocytosis, Duodenitis Referrals: Angelica Quezada MD [Primary Care Provider] -
[2021-02-05] MEDS: 0.9% Normal Saline 1,000 ML 1000 ML IV (17:16)
[2021-02-05] MEDS: Ondansetron 4 MG/2 ML Vial IV ×2 (17:16→21:10)
[2021-02-05] MEDS: HYDROmorphone 1 MG/ML Syringe 0.5 MG IV (17:16)
[2021-02-05 17:36] LABS: Absolute Lymphocyte Count 2.76 X10^3/uL (0.83-4.51); Basophil# 0.08 X10^3/uL; Basophil% 0.5 % (0-1); Eosinophil# 0.66 X10^3/uL; Hematocrit 52.2 % (37-47); Hemoglobin 17.7 g/dL (12.0-15.0); Lymphocyte # 2.76 X10^3/ul (0.83-4.51); Lymphocyte % 16.7 % (19-41); Mean Corp Hgb Conc 33.9 g/dL (32-36); Mean Corpuscular Hgb 29.6 pg (27.0-32.0); Mean Corpuscular Volume 87.4 fL (81-99); Mean Platelet Vol. 10.1 fl (6.2-12.0); Monocyte# 0.88 X10^3/uL; Monocyte% 5.3 % (0-10); NRBC Flagged by Analyzer 0 % (0-5); Neutrophil # 11.99 X10^3/uL (2.7-7.7); Neutrophil % 72.7 % (47-70); Platelet Count 273 K/mm3 (150-450); RBC Distribution Width CV 13.8 % (11.6-14.6); RBC Distribution Width SD 43.5 fl (35.1-43.9); Red Blood Count 5.97 M/mm3 (4.2-5.4); White Blood Count 16.5 K/mm3 (4.4-11.0)
[2021-02-05 17:49] LABS: AST(SGOT) 30 U/L (15-37); Alanine Aminotransfer ALT/SGPT 44 U/L (13-56); Albumin, Serum 3.4 g/dL (3.2-5.0); Alkaline Phosphatase 184 U/L (45-117); Anion Gap 8 (5-15); BUN 7 mg/dL (7-18); BUN/Creat Ratio 7.5 RATIO (10-20); Bilirubin, Direct 0.31 mg/dL (0.00-0.30); Calcium,Total 9.4 mg/dL (8.5-10.1); Chloride 100 mmol/L (98-107); Creatinine, Serum 0.93 mg/dL (0.55-1.02); EST Glomerular Filtration Rate 69 mL/min (>60); Est Glom Filt Rate - Afr Amer 83 mL/min (>60); Estimated Creatinine Clearance 72.72 ml/min; Globulin 5.5 g/dL (2.2-4.2); Glucose 195 mg/dL (74-106); Lipase 93 U/L (73-393); Potassium 3.9 mmol/L (3.5-5.1); Protein, Total 8.9 g/dL (6.4-8.2); Sodium Level 133 mmol/L (136-145)
[2021-02-05 18:02] LABS: Lactic Acid 1.8 mmol/L (0.4-1.9)
[2021-02-05 18:46] LABS: Bacteria 0 SEEN /hpf (None Seen); Mucous, Urine 0 SEEN /hpf (<or=2+); Red Blood Cells-Urine 0 SEEN /hpf (0-5)
[2021-02-05 18:48] LABS: Color, Urine Yellow (Yellow); Glucose, Dipstick Normal (Normal); Ketone-Dipstick 15 mg/dl (Negative); Leukocyte Esterase-Dipstick 25 /ul (Negative); Nitrite-Dipstick Negative (Negative); Occult Blood-Urine 10 /ul (Negative); Protein-Dipstick 15 mg/dl (Negative); Specific Gravity, Urine 1.015 (1.002-1.030); Urine Bilirubin Dipstick Negative (Negative); Urine Clarity Clear (Clear); Urine Urobilinogen Normal (Normal)
[2021-02-05 19:04] VITALS: BP 147/70; PULSE 94; RESP 16; TEMP 37.1; O2SAT 99
[2021-02-05 19:05] LABS: Squamous Epithelial Cells - UA 0-5 SEEN /hpf (5-10); White Blood Cells 0-5 SEEN /hpf (0-5)
[2021-02-05] MEDS: HYDROmorphone 1 MG/ML Syringe IV (19:34)
== END 2021-02-05 22:00 | disposition short-term general hospital (02) ==
PROVIDERS: Emergency Provider Emergency Medicine; PCP Family Medicine
DX: R10.13 Epigastric pain (principal); D72.829 Elevated white blood cell count, unspecified; K29.80 Duodenitis without bleeding; D3A.8 Other benign neuroendocrine tumors; I10 Essential (primary) hypertension; K51.90 Ulcerative colitis, unspecified, without complications; L40.9 Psoriasis, unspecified; K21.9 Gastro-esophageal reflux disease without esophagitis; E11.9 Type 2 diabetes mellitus without complications; J45.909 Unspecified asthma, uncomplicated; Z93.2 Ileostomy status; Z87.19 Personal history of other diseases of the digestive system; Z87.442 Personal history of urinary calculi; Z90.49 Acquired absence of other specified parts of digestive tract; Z79.4 Long term (current) use of insulin; Z79.899 Other long term (current) drug therapy; Z87.891 Personal history of nicotine dependence
CPT/HCPCS: 74177; 80048; 80076; 81001; 83605; 83690; 84484; 85025; 87426; 93005; 96361; 96374; 96375; 96376; 99285; J7030; Q9967; A4216; J2405

== ENCOUNTER 2021-10-12 17:40 | Emergency (ER) | payer BC, SELFPAY ==
[2021-10-12 17:41] VITALS: BP 162/91; PULSE 83; RESP 16; TEMP 36.4; O2SAT 98
[2021-10-12 19:08] VITALS: O2SAT 95
[2021-10-12 19:09] VITALS: O2SAT 95
[2021-10-12] MEDS: Benzonatate 100 MG Capsule 200 MG PO (20:34)
[2021-10-12 20:37] VITALS: PULSE 114; RESP 24; O2SAT 97
--- NOTE | 2021-10-12 20:38 | ED.RN ---
THIS NURSE REVIEWED D/C INSTRUCTIONS WITH PT AND VISITOR. BOTH VERBALIZED UNDERSTANDING OF INSTRUCTIONS. PT DENIES FURTHER NEEDS OR QUESTIONS AT THIS TIME. PT AMBULATES FROM ROOM ON OWN WITHOUT ASSISTANCE FROM STAFF
--- NOTE | 2021-10-12 21:53 | ED.VIS.DYS ---
HPI History of Present Illness Chief Complaint: Shortness of Breath Narrative Narrative: 46-year-old female presenting for evaluation. She states she has COVID-19 and is currently having cough and congestion. She states she has jayy sputum. She is not currently having any fevers. She does complain of a persistent cough. She is not short of breath. Patient is not having chest pain. She does state that she has some burning in her throat. Patient also does have a history of GERD. Patient reported that her pulse ox had been wavering from 89-94 at home. She is unsure if her pulse oximeter is working correctly. She states that she is supposed to be referred for monoclonal antibodies but she is awaiting this to be set up. She states she has a history of asthma but has not been wheezing. She does have home nebulizers which she uses periodically but not having an increased use of this. [facility] Medical History Abnormal bruising Anemia Arthritis Asthma Cancer Diabetes Hernia HTN (hypertension) Kidney disease Liver disease Lung disease Severe headache SOB (shortness of breath) Home Medications albuterol sulfate 2 puff INHALATION PRN PRN 08/25/13 [History Last Taken 02/21/16] albuterol sulfate 2.5 mg INHALATION Q4H PRN PRN 08/25/13 [History Last Taken Unknown] atenolol 25 mg PO DAILY 08/25/13 [History Last Taken 06/16/19 06:00 25 MG] omeprazole 20 mg PO DAILY 08/25/13 [History Last Taken 06/16/19 06:00 20 MG] potassium citrate 10 meq PO BID 02/21/16 [History Last Taken 02/21/16] allopurinol 300 mg PO DAILY 10/20/17 [History Last Taken Unknown] duloxetine 20 mg capsule,delayed release 60 mg PO DAILY 06/28/20 [History Last Taken Unknown] insulin lispro 100 unit/mL subcutaneous pen 1 unit SC TIDCM ml 06/28/20 [History Last Taken Unknown] hyoscyamine sulfate 0.375 mg PO Q12 02/05/21 [History Last Taken Unknown] insulin glargine 22 units SC QHS 02/05/21 [History Last Taken Unknown] promethazine-DM 5 ml PO Q6H PRN #118 ml 10/12/21 [Rx Last Taken Unknown] Allergy/AdvReac Type Severity Reaction Status Date / Time codeine Allergy Anaphylaxis Verified 06/28/20 16:15 hydrocodone bitartrate Allergy Rash Verified 06/28/20 16:15 [From Vicodin] latex Allergy Anaphylaxis Verified 06/28/20 16:15 oxycodone HCl [From Percocet] Allergy Anaphylaxis Verified 06/28/20 16:15 Family History Other Diabetes Heart disease Liver cancer Lung disease Skin cancer Thyroid disorder Surgical History H/O total colectomy History of appendectomy History of cholecystectomy History of lithotripsy Social History Smoking Status: Former smoker alcohol intake: never ROS ROS ED Constitutional Constitutional ED: Denies chills or fever(s) Eyes Eyes: Denies blurry vision ENT ENT ED: Denies rhinorrhea Cardiovascular Cardiovascular: Denies chest pain or palpitations Respiratory/Chest Respiratory/Chest: Reports cough and dyspnea Gastrointestinal Gastrointestinal: Denies abdominal pain, nausea or vomiting Genitourinary Genitourinary ED: Denies dysuria or hematuria Musculoskeletal Musculoskeletal: Denies arthralgias or myalgias Integumentary Denies Abrasions or rash Neurologic Neurologic: Denies headache(s) or paresthesias Psychiatric Psychiatric: Denies anxiety or depression EXAM Physical Exam Const Vital Signs: 10/12/21 17:41 10/12/21 19:09 10/12/21 20:37 Temperature 97.6 F L Temperature Source Temporal Pulse Rate 83 114 H Respiratory Rate 16 24 H Respiratory Effort Normal Non-Labored Respiratory Depth Normal Respiratory Pattern Normal Blood Pressure 162/91 H Blood Pressure Mean 114 Pulse Ox 98 97 Oxygen Delivery Method Room Air Room Air Positive well nourished General Appearance ED: NAD; Negative for pallor HEENT Reports moist mucous membranes Negative for atraumatic Eyes EOMs intact bilaterally Neck no lymphadenopathy and supple Resp normal respiratory effort and clear to auscultation bilaterally Cardio regular rate and regular rhythm GI non-tender Palpation: soft Neuro oriented x3 and CN's II-XII intact bilaterally Sensorium / Orientation: alert Motor Exam: strength 5/5 throughout Psych mental status grossly normal Skin General Skin Exam: Negative for jaundice or pallor Lesions: no lesions Rashes: no rashes MDM MDM MDM Narrative Medical decision making narrative: Patient presenting for evaluation of her cough and she is had a little bit of jayy sputum. She has a history of asthma but is not wheezing. She does not feel significantly short of breath however she did note that her pulse ox was reading 89-94 at home. Here she is ambulated in the ER and does not desaturate and feels otherwise well ambulating. She is concerned that her pulse oximeter is not working correctly at home. I did look at her pulse oximeter and it does not show waveforms just a pulse ox. She states she would like to exchange this and can do this at a later time. She does have concern that she has not been set up for the monoclonal antibodies and does note that she is only had a home test. I believe this is likely why she has not been able to get set up. Given that she has a positive Covid at home I will set her up for the monoclonal antibodies and send for a Covid PCR so that she can get treated. After long discussion with her I do not believe she needs lab work or imaging. She states that she will return if she has any worsening. She does request a prescription for something to help her with cough and this was provided. Impression: 1 COVID-19 2. Cough Discharge Plan Triage Chief Complaint: Shortness of Breath ED Provider: David Skaggs Dx/Rx/DC Orders Instructions: Coronavirus Disease 2019 (COVID-19): Caring for Yourself or Others, ED - COVID Monoclonal AB Infusion ... Prescriptions: New promethazine-DM 6.25-15 mg/5 mL syrup 5 ml PO Q6H PRN (Reason: cough) Qty: 118 RF: 0 No Action albuterol sulfate 2.5 MG/3 ML solution for nebulization 2.5 mg inhalation Q4H PRN PRN (Reason: Bronchospasm) RF: 0 atenolol 25 MG tablet 25 mg PO DAILY RF: 0 omeprazole 20 MG capsule 20 mg PO DAILY RF: 0 albuterol sulfate 1 INHALER inhaler 2 puff inhalation PRN PRN (Reason: Bronchospasm) RF: 0 potassium citrate 10 MEQ tablet extended release 10 meq PO BID RF: 0 allopurinol 300 MG tablet 300 mg PO DAILY RF: 0 duloxetine 20 mg capsule,delayed release(DR/EC) 60 mg PO DAILY RF: 0 insulin lispro 100 unit/mL insulin pen 1 unit SC TIDCM RF: 0 insulin glargine 100 UNITS/ML insulin pen 22 units SC QHS RF: 0 hyoscyamine sulfate 0.375 MG tablet 0.375 mg PO Q12 RF: 0 Primary Care Provider: Angelica Quezada Referrals: Angelica Quezada MD [Primary Care Provider] - Disposition Disposition: Home, Self Care Discharge Date/Time: 10/12/21 20:39
== END 2021-10-12 20:39 | disposition home or self-care (01) ==
LOC: ED 20:07
PROVIDERS: Emergency Provider Student in an Organized Health Care Education/Training Program; PCP Family Medicine
DX: U07.1 COVID-19 (principal); R05.9 Cough, unspecified; E11.9 Type 2 diabetes mellitus without complications; I10 Essential (primary) hypertension; K21.9 Gastro-esophageal reflux disease without esophagitis; M19.90 Unspecified osteoarthritis, unspecified site; J45.909 Unspecified asthma, uncomplicated; Z79.4 Long term (current) use of insulin; Z79.899 Other long term (current) drug therapy; Z87.891 Personal history of nicotine dependence
CPT/HCPCS: 87635; 99283; U0005; U0003

== ENCOUNTER 2021-10-16 08:35 | Outpatient (CLI) | payer BC, SELFPAY ==
[2021-10-16 08:49] VITALS: BP 145/95; PULSE 105; RESP 20; TEMP 37.1; O2SAT 98; BMI 46.2
[2021-10-16] MEDS: 0.9% Saline Lock 10 ML Syringe IV (08:55)
[2021-10-16 09:54] VITALS: BP 150/96; PULSE 99; RESP 18; TEMP 37.7; O2SAT 98
[2021-10-16 10:40] VITALS: BP 152/93; PULSE 100; RESP 18; TEMP 37.3; O2SAT 97
== END 2021-10-16 23:59 | disposition home or self-care (01) ==
LOC: MS3OUT 08:35 → MS3 08:36
PROVIDERS: PCP Family Medicine; Referring Provider Nurse Practitioner Adult Health; Visit Provider Nurse Practitioner Adult Health
DX: Z23 Encounter for immunization (principal); U07.1 COVID-19
CPT/HCPCS: J7050; M0243; A4216; Q0240

== ENCOUNTER 2022-02-05 20:35 | Inpatient (IN) | payer BC, SELFPAY ==
[2022-02-05 20:36] VITALS: BP 135/114; PULSE 138; RESP 16; TEMP 36.3; O2SAT 97; BMI 45.8
--- NOTE | 2022-02-05 20:59 | CT_ITS ---
STUDY: CT ABDOMEN AND PELVIS WITHOUT CONTRAST REASON FOR EXAM: Female, 47 years old. Pain RADIATION DOSAGE (If Supplied By Facility): CTDIvol = ( 23.91 ) mGy, DLP = ( 1212.72 ) mGycm TECHNIQUE: Transaxial images were obtained from the dome of the diaphragm to the symphysis pubis without oral contrast, and without intravenous contrast. Sagittal and coronal images were reconstructed. Individualized dose optimization techniques were used for this CT. COMPARISON: CT abdomen pelvis 02/05/2021 LIMITATIONS: None. LOWER CHEST: Normal. LIVER: The liver is diffusely hypoattenuating, suggestive of hepatic steatosis. There is diffuse hepatic surface nodularity.. GALLBLADDER/BILE DUCTS: Status post cholecystectomy.. PANCREAS: Normal. SPLEEN: 15 cm. ADRENAL GLANDS: Normal. KIDNEYS/URETERS/BLADDER: Normal. RETROPERITONEUM/AORTA: Normal. BOWEL/MESENTERY: Status post colectomy with right lower quadrant ileostomy and large parastomal hernia containing multiple small bowel loops without evidence of proximal obstruction, similar compared to the prior. PERITONEUM: Normal. REPRODUCTIVE ORGANS: Normal. BONES/SOFT TISSUES: No acute abnormality. OTHER: None. CT/Abdomen/Pelvis without Cont IMPRESSION: 1. 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 2. Hepatic steatosis and nodularity, suggestive of cirrhosis. 3. Splenomegaly. Electronically Signed: Ramon Yoon MD at 22:42 EDT ,
--- NOTE | 2022-02-05 21:01 | ED.VIS.GI ---
HPI HPI - GI History of Present Illness Chief Complaint: Abd Pain Detail of Chief Complaint: Abdominal pain and vomiting that started this morning Informant: patient Abdominal Pain/Flank Pain Current Severity: 07/22 Narrative Narrative: Patient presents to the emergency department with abdominal pain that started this morning. Patient states she is been throwing up and has been having liquidy stools from her ileostomy. Patient has history of ileostomy secondary to ulcerative colitis and total colectomy. Patient states that her son and his also had similar illness with vomiting and diarrhea. Patient states has been going through her family. He describes pain in the upper abdomen. She had a low-grade fever up to 100.5 at home. [facility] Medical History (Updated 02/05/22 @ 22:[address] Juan Carlos Salazar, ) Abnormal bruising Anemia Arthritis Asthma Cancer Diabetes Endocrine tumor Hernia HTN (hypertension) Kidney disease Liver disease Lung disease Meningioma Severe headache SOB (shortness of breath) Home Medications albuterol sulfate 2 puff INHALATION PRN PRN 08/25/13 [History Last Taken 02/21/16] albuterol sulfate 2.5 mg INHALATION Q4H PRN PRN 08/25/13 [History Last Taken Unknown] atenolol 25 mg PO DAILY 08/25/13 [History Last Taken 06/16/19 06:00 25 MG] potassium citrate 10 meq PO BID 02/21/16 [History Last Taken 02/21/16] allopurinol 300 mg PO DAILY 10/20/17 [History Last Taken Unknown] duloxetine 20 mg capsule,delayed release 60 mg PO DAILY 06/28/20 [History Last Taken Unknown] hyoscyamine sulfate 0.375 mg PO Q12 02/05/21 [History Last Taken Unknown] diclofenac sodium [Voltaren] 50 mg PO BID 10/16/21 [History Last Taken Unknown] fluconazole 150 mg tablet 150 mg PO Q3D #2 tab 01/28/22 [Rx Last Taken Unknown] Basaglar KwikPen U-100 Insulin 02/05/22 [History Last Taken Unknown] Novolog Flexpen U-100 Insulin 02/05/22 [History Last Taken Unknown] Allergy/AdvReac Type Severity Reaction Status Date / Time codeine Allergy Anaphylaxis Verified 02/05/22 20:40 hydrocodone bitartrate Allergy Rash Verified 02/05/22 20:40 [From Vicodin] latex Allergy Anaphylaxis Verified 02/05/22 20:40 oxycodone HCl [From Percocet] Allergy Anaphylaxis Verified 02/05/22 20:40 Family History Other Diabetes Heart disease Liver cancer Lung disease Skin cancer Thyroid disorder Surgical History H/O total colectomy History of appendectomy History of cholecystectomy History of lithotripsy Social History Smoking Status: Former smoker alcohol intake: never ROS ROS ED Constitutional Constitutional ED: Reports systems reviewed and no addt'l complaints, except as documented; Denies body ache(s), change in weight or chills Eyes Eyes: Denies acute decrease in peripheral vision, change in vision, double vision or loss of vision ENT ENT ED: Reports none; Denies ear pain, lip swelling, loss taste/smell, neck pain, otalgia or sore throat Cardiovascular Cardiovascular: Reports none; Denies abdominal pain, chest pain with activity, leg edema, lightheadedness, palpitations, rapid heart rate or syncope Respiratory/Chest Respiratory/Chest: Reports none; Denies change in mental status, dry cough, dyspnea, hemoptysis, shortness of breath at rest or shortness of breath with exertion Gastrointestinal Gastrointestinal: Reports none, abdominal pain, diarrhea, nausea and vomiting; Denies change in stool character, hematemesis, hematochezia, melena or rectal bleeding Genitourinary Genitourinary ED: Reports none; Denies abdominal discomfort, anuria, dysuria, genital pain or polyuria Musculoskeletal Musculoskeletal: Reports none; Denies arthralgias, back pain, difficulty walking, extremity pain, muscle weakness or myalgias Integumentary Reports none; Denies abscess or rash Neurologic Neurologic: Reports none; Denies abnormal gait, confusion, focal weakness, frequent falls, headache(s), loss of vision, numbness, paresthesias, radicular pain, vertigo or weakness Psychiatric Psychiatric: Reports systems reviewed and no addt'l complaints, except as documented and none; Denies behavioral changes, confusion, difficulty concentrating, hallucinations, suicidal ideation, tactile hallucinations or visual hallucinations Endocrine Endocrinology: Denies none, cold intolerance, excessive sweating, fatigue or heat intolerance Hematologic/Lymphatic Hematologic/Lymphatic: Reports none; Denies anemia, easy bleeding or easy bruising Allergic/Immunologic Allergic/Immunologic ED: Denies as per HPI, none, lip swelling, mouth swelling, throat swelling, tongue swelling or hives EXAM Physical Exam Const Vital Signs: 02/05/22 20:36 02/05/22 22:39 02/05/22 22:45 Temperature 97.4 F L 99.3 F H Temperature Source Temporal Temporal Pulse Rate 138 H 113 H 117 H Respiratory Rate 16 18 Blood Pressure 135/114 H 150/89 H 163/104 H Blood Pressure Mean 121 109 123 Pulse Ox 97 95 95 Oxygen Delivery Method Room Air Nasal Cannula Room Air Positive well nourished and well developed General Appearance ED: well developed and NAD HEENT Reports TM's clear and moist mucous membranes normocephalic and atraumatic; Negative for trauma or tenderness Tympanic Membrane ED: Yes TM's clear Eyes PERRL and EOMs intact bilaterally General Eye ED: Negative for pale conjunctiva or scleral icterus Neck no lymphadenopathy, supple and no JVD General: Negative for tenderness Chest Wall inspection of chest normal and palpation of chest normal Chest: Negative for tenderness Resp normal respiratory effort and clear to auscultation bilaterally Effort and Inspection: Negative for respiratory distress or pain with movement Auscultation: Negative for rhonchi, wheezes or diminished lung sounds Cardio regular rate, regular rhythm, S1 normal heart sound, S2 normal heart sound and no murmurs Peripheral Pulses: pulses 2+ throughout GI normal to inspection, nondistended, normoactive bowel sounds, soft to palpation, non-distended and no masses GI Narrative: Tenderness palpation over the epigastric region and diffusely over the upper abdomen. Patient has a ileostomy in the mid abdomen with watery green stool. No peristomal hernias palpated. Patient also had some mild tenderness in the right lower quadrant. Back/Spine no CVA tenderness and no thoracic nor lumbar tenderness Extremity normal to inspection General Extremety ED: Negative for edema General Extremity: Negative for edema Neuro oriented x3, CN's II-XII intact bilaterally, no sensory deficits noted and gait normal Sensorium / Orientation: awake, alert, oriented to person, oriented to place and oriented to time Motor Exam: strength 5/5 throughout and strength abnormal Psych mental status grossly normal Skin no rashes or lesions noted and no wounds MDM MDM MDM Narrative Medical decision making narrative: IV line established on arrival. Patient was given a liter normal saline fluid bolus followed by second liter. White blood cell count was elevated 13.7. Her hemoglobin was 18 which could indicate dehydration. Sodium was 128. Creatinine was 1.44 with significant change from prior. Patient was medicated with Dilaudid 1 mg IV as well as Zofran 4 mg IV. Patient continues to complain of pain in the epigastric region and states some of the pain is coming back although she certainly significantly improved from when she originally presented. CT scan of the abdomen pelvis showed a peristoma hernia unchanged from prior study without evidence of bowel obstruction. Stool was sent for enteric pathogens and those results will be pending. Case will be discussed with hospitalist evaluate patient for admission. Lab Data Attestation: I reviewed the patient's lab results. Labs: Laboratory Results - last 24 hr 02/05/22 02/05/22 02/05/22 21:20 21:20 21:20 WBC 13.7 H RBC 6.17 H Hgb 18.0 H* Hct 52.8 H MCV 85.6 MCH 29.2 MCHC 34.1 RDW Std Deviation 41.4 RDW Coeff of Eleuterio 13.5 Plt Count 300 MPV 9.7 Immature Gran % (Auto) 1.000 H Neut % (Auto) 86.7 H Lymph % (Auto) 5.7 L [place] % (Auto) 5.6 Eos % (Auto) 0.6 Baso % (Auto) 0.4 Absolute Neuts (auto) 11.9 H Absolute Lymphs (auto) 0.78 L Nucleated RBC % 0 Diff Path Review May foll Sodium 128 L Potassium 4.1 Chloride 92 L Carbon Dioxide 27.0 Anion Gap 9 BUN 10 Creatinine 1.44 H Estim Creat Clear Calc 46.46 Est GFR (MDRD) Af Amer 50 L Est GFR (MDRD) Non-Af 41 L BUN/Creatinine Ratio 6.9 L Glucose 330 H Lactic Acid 3.9 H* Calcium 8.7 Total Bilirubin 1.10 H AST 35 ALT 43 Alkaline Phosphatase 149 H Total Protein 9.6 H Albumin 3.3 Globulin 6.3 H Albumin/Globulin Ratio 0.5 L Lipase 43 L Radiography Diagnostic Testing: Clinical Impression(s) from Imaging Studies Abdomen/Pelvis CT 02/05/22 20:59 IMPRESSION: 1. 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 2. Hepatic steatosis and nodularity, suggestive of cirrhosis. 3. Splenomegaly. Electronically Signed: Ramon Yoon MD at 22:42 EDT , Discharge Plan Triage Chief Complaint: Abd Pain ED Provider: Juan Carlos Salazar Dx/Rx/DC Orders Clinical Impression: Gastroenteritis, Acute dehydration, RAE (acute kidney injury), Acidosis, lactic Prescriptions: No Action fluconazole [Diflucan] 150 mg tablet 150 mg PO Q3D Qty: 2 RF: 0 albuterol sulfate 2.5 MG/3 ML solution for nebulization 2.5 mg inhalation Q4H PRN PRN (Reason: Bronchospasm) RF: 0 atenolol 25 MG tablet 25 mg PO DAILY RF: 0 albuterol sulfate 1 INHALER inhaler 2 puff inhalation PRN PRN (Reason: Bronchospasm) RF: 0 potassium citrate 10 MEQ tablet extended release 10 meq PO BID RF: 0 allopurinol 300 MG tablet 300 mg PO DAILY RF: 0 duloxetine 20 mg capsule,delayed release(DR/EC) 60 mg PO DAILY RF: 0 hyoscyamine sulfate 0.375 MG tablet 0.375 mg PO Q12 RF: 0 diclofenac sodium [Voltaren] 50 mg Tablet,Delayed Release (Dr/Ec) 50 mg PO BID RF: 0 Basaglar KwikPen U-100 Insulin RF: 0 Novolog Flexpen U-100 Insulin RF: 0 Primary Care Provider: Angelica Quezada Referrals: Angelica Quezada MD [Primary Care Provider] - Disposition Disposition: Acute Care Hospital [facility]
[2022-02-05] MEDS: 0.9% Normal Saline 1,000 ML 999 ML IV ×2 (21:32→22:57)
[2022-02-05] MEDS: HYDROmorphone 1 MG/ML Syringe IV (21:32)
[2022-02-05] MEDS: Ondansetron 4 MG/2 ML Vial IV (21:33)
[2022-02-05 21:49] LABS: Absolute Lymphocyte Count 0.78 X10^3/uL (0.83-4.51); Absolute Neutrophil Count 11.9 X10^3/uL (2.0-7.7); Basophil# 0.05 X10^3/uL; Basophil% 0.4 % (0-1); Eosinophil# 0.08 X10^3/uL; Eosinophils% 0.6 % (0-5); Hematocrit 52.8 % (37-47); Lymphocyte # 0.78 X10^3/ul (0.83-4.51); Lymphocyte % 5.7 % (19-41); Mean Corp Hgb Conc 34.1 g/dL (32-36); Mean Corpuscular Hgb 29.2 pg (27.0-32.0); Mean Corpuscular Volume 85.6 fL (81-99); Mean Platelet Vol. 9.7 fl (6.2-12.0); Monocyte# 0.77 X10^3/uL; Monocyte% 5.6 % (0-10); NRBC Flagged by Analyzer 0 % (0-5); Neutrophil # 11.89 X10^3/uL (2.7-7.7); Neutrophil % 86.7 % (47-70); Platelet Count 300 K/mm3 (150-450); RBC Distribution Width CV 13.5 % (11.6-14.6); RBC Distribution Width SD 41.4 fl (35.1-43.9); Red Blood Count 6.17 M/mm3 (4.2-5.4); White Blood Count 13.7 K/mm3 (4.4-11.0)
[2022-02-05 21:58] LABS: ALB/GLOB Ratio 0.5 RATIO (0.9-2.4); AST(SGOT) 35 U/L (15-37); Alanine Aminotransfer ALT/SGPT 43 U/L (13-56); Albumin, Serum 3.3 g/dL (3.2-5.0); Alkaline Phosphatase 149 U/L (45-117); Anion Gap 9 (5-15); BUN 10 mg/dL (7-18); BUN/Creat Ratio 6.9 RATIO (10-20); Calcium,Total 8.7 mg/dL (8.5-10.1); Chloride 92 mmol/L (98-107); Creatinine, Serum 1.44 mg/dL (0.55-1.02); EST Glomerular Filtration Rate 41 mL/min (>60); Est Glom Filt Rate - Afr Amer 50 mL/min (>60); Estimated Creatinine Clearance 46.46 ml/min; Globulin 6.3 g/dL (2.2-4.2); Glucose 330 mg/dL (74-106); Lipase 43 U/L (73-393); Potassium 4.1 mmol/L (3.5-5.1); Protein, Total 9.6 g/dL (6.4-8.2); Sodium Level 128 mmol/L (136-145)
[2022-02-05 21:59] LABS: Lactic Acid 3.9 mmol/L (0.4-1.9)
[2022-02-05 22:39] VITALS: BP 150/89; PULSE 113; O2SAT 95
[2022-02-05 22:45] VITALS: BP 163/104; PULSE 117; RESP 18; TEMP 37.4; O2SAT 95
--- NOTE | 2022-02-05 22:59 | PCM.HP.STD ---
HPI - General General Date of Admission: 02/05/22 HPI Narrative VENKAT BCEERRA, is a 47 F with a significant history of ulcerative colitis status post total colectomy and ileostomy; diabetes mellitus; hypertension; recurrent kidney stones anon allopurinol and potassium citrate who presents to the emergency department with progressively worsening nausea and vomiting that started on the same day of presentation. Her who was at the bedside stated that at least patient has vomited about 6 times on the day of presentation. Her ileostomy has had increased output and it is more liquidy. Further she complains of pain that spun across her entire upper abdomen. The pain at his abdomen is most severe at the left flank. She reports completing antibiotics about a week ago for bronchitis. Patient reported multiple family members have had symptoms of gastroenteritis [facility] Medical History Abnormal bruising Anemia Arthritis Asthma Cancer Diabetes Endocrine tumor Hernia HTN (hypertension) Kidney disease Liver disease Lung disease Meningioma Severe headache SOB (shortness of breath) Home Medications albuterol sulfate 2 puff INHALATION PRN PRN 08/25/13 [History Last Taken 02/21/16] albuterol sulfate 2.5 mg INHALATION Q4H PRN PRN 08/25/13 [History Last Taken Unknown] atenolol 25 mg PO DAILY 08/25/13 [History Last Taken 06/16/19 06:00 25 MG] potassium citrate 10 meq PO BID 02/21/16 [History Last Taken 02/21/16] allopurinol 300 mg PO DAILY 10/20/17 [History Last Taken Unknown] duloxetine 20 mg capsule,delayed release 60 mg PO DAILY 06/28/20 [History Last Taken Unknown] hyoscyamine sulfate 0.375 mg PO Q12 02/05/21 [History Last Taken Unknown] diclofenac sodium [Voltaren] 50 mg PO BID 10/16/21 [History Last Taken Unknown] fluconazole 150 mg tablet 150 mg PO Q3D #2 tab 01/28/22 [Rx Last Taken Unknown] Basaglar KwikPen U-100 Insulin 02/05/22 [History Last Taken Unknown] Novolog Flexpen U-100 Insulin 02/05/22 [History Last Taken Unknown] Allergy/AdvReac Type Severity Reaction Status Date / Time codeine Allergy Anaphylaxis Verified 02/05/22 20:40 hydrocodone bitartrate Allergy Rash Verified 02/05/22 20:40 [From Vicodin] latex Allergy Anaphylaxis Verified 02/05/22 20:40 oxycodone HCl [From Percocet] Allergy Anaphylaxis Verified 02/05/22 20:40 Family History Other Diabetes Heart disease Liver cancer Lung disease Skin cancer Thyroid disorder Surgical History H/O total colectomy History of appendectomy History of cholecystectomy History of lithotripsy Social History Smoking Status: Former smoker alcohol intake: never ROS ROS Narrative Constitutional: Reports anorexia. Denies fever, chills, fatigue, and change in weight Eyes: Denies blurry vision, change in eye color, change in vision, discharge from eye(s), double vision, erythema, eye pain, loss of vision or other HEENT: Denies abnormal hearing, dysphagia, ear pain, epistaxis, headache(s), hearing loss, nasal congestion, nasal discharge, post nasal drip, sinus pressure, sore throat or other Cardiovascular: Denies chest pain or palpitations. Denies dyspnea on exertion, orthopnea and paroxysmal nocturnal dyspnea Respiratory/Chest: Reports cough. Denies shortness of breath. Gastrointestinal: Reports abdominal pain. Reports increased output from ileostomy. Reports nausea and vomiting. Genitourinary: Denies burning urination, difficulty urinating, dysuria, hematuria, nocturia, urinary frequency, urinary hesitancy, urinary incontinence, urinary urgency or other Musculoskeletal: Denies arthralgias, back pain, joint pain, joint stiffness, joint swelling, myalgias, neck pain or other Neurologic: Denies abnormal gait, abnormal speech, confusion, disequilibrium, dizziness, focal weakness, numbness, paresthesias, seizure-like activity, seizures, syncope, tingling, tremor(s) or other Psychiatric: Denies anxiety, depression, homicidal ideation, suicidal ideation or other Endocrinology: Denies change in body appearance, cold intolerance, excessive sweating, heat intolerance, polydipsia, polyuria or other Hematologic/Lymphatic: Denies anemia, easy bleeding, easy bruising, lymphadenopathy or other Integumentary: Denies rashes Allergic/Immunologic: Denies rhinitis, hives, eczema, or other Vital Signs Vital Signs Vital Signs: 02/05/22 20:36 02/05/22 22:39 02/05/22 22:45 Temperature 97.4 F L 99.3 F H Temperature Source Temporal Temporal Pulse Rate 138 H 113 H 117 H Respiratory Rate 16 18 Blood Pressure 135/114 H 150/89 H 163/104 H Blood Pressure Mean 121 109 123 Pulse Ox 97 95 95 Oxygen Delivery Method Room Air Nasal Cannula Room Air Weight Weight: 132.903 kg Body Mass Index (BMI) 45.8 Physical Exam Narrative Physical exam: General: Well-nourished, well-developed. Head: Normocephalic, atraumatic, no tenderness Eyes: Vision is grossly intact. EOMI ENT, no trauma, moist mucous membranes, no rhinorrhea Neck: Nontender, full range of motion, no spinal tenderness, deformities, step-off CVS: Regular rate and rhythm. S1-S2 present. No murmur, gallop or rub. Respiratory : Mild rhonchi. Chest wall nontender. Abdomen: Soft, tender, nondistended, normal bowel sounds. Greenish liquid stool in ileostomy which is almost full. : Deferred Back: Nontender, no CVA tenderness, no midline spinal tenderness, deformities, step-offs Extremities: Nontender full range of motion, no trauma Skin: Normal color, no trauma, abrasions Neuro: Alert, oriented, cranial nerves II through XII grossly intact. Psychiatry: Normal mood. Normal affect. Not depressed. Not anxious. Results Lab / Micro Data Result Diagrams: 02/05/22 21:20 02/05/22 21:20 Labs: Laboratory Results - last 24 hr 02/05/22 21:20: WBC 13.7 H, RBC 6.17 H, Hgb 18.0 H*, Hct 52.8 H, MCV 85.6, MCH 29.2, MCHC 34.1, RDW Std Deviation 41.4, RDW Coeff of Eleuterio 13.5, Plt Count 300, MPV 9.7, Immature Gran % (Auto) 1.000 H, Neut % (Auto) 86.7 H, Lymph % (Auto) 5.7 L, [place] % (Auto) 5.6, Eos % (Auto) 0.6, Baso % (Auto) 0.4, Absolute Neuts (auto) 11.9 H, Absolute Lymphs (auto) 0.78 L, Nucleated RBC % 0, Diff Path Review February02/05/22 21:20: Sodium 128 L, Potassium 4.1, Chloride 92 L, Carbon Dioxide 27.0, Anion Gap 9, BUN 10, Creatinine 1.44 H, Estim Creat Clear Calc 46.46, Est GFR (MDRD) Af Amer 50 L, Est GFR (MDRD) Non-Af 41 L, BUN/Creatinine Ratio 6.9 L, Glucose 330 H, Calcium 8.7, Total Bilirubin 1.10 H, AST 35, ALT 43, Alkaline Phosphatase 149 H, Total Protein 9.6 H, Albumin 3.3, Globulin 6.3 H, Albumin/Globulin Ratio 0.5 L, Lipase 43 L 02/05/22 21:20: Lactic Acid 3.9 H* Radiology Impression Abdomen/Pelvis CT 02/05/22 20:59 IMPRESSION: 1. 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 2. Hepatic steatosis and nodularity, suggestive of cirrhosis. 3. Splenomegaly. Electronically Signed: Ramon Yoon MD at 22:42 EDT , Assessment & Plan Assessment/Plan (1) Gastroenteritis: PLAN: Acute gastroenteritis Abdomen and pelvis CT was visualized and independently interpreted and agree with interpretation above. CBC reviewed showed white count of 13.7 with bandemia of 1%; neutrophilia of 86.7% and lymphopenia of 5.7%. Will trend CBC. Likely viral Enteric pathogen panel and C. difficile ordered at the ED; follow. Received normal saline bolus in the emergency department. Maintenance normal saline infusion ordered. Shared decision to start patient on clear liquid diet. Antiemetics as needed. Morphine prn for pain. RAE/dehydration/Hypovolemia hyponatremia/hypochloremia Review of labs showed erythrocytosis with white count of 18.0. Creatinine is 1.44. BUN is 10. BUN over creatinine is 6.9. Her creatinine exactly a year ago was 0.93. Sodium of 128. Chloride level is 92. Normal saline IV hydration. Trend CMP. Lactic acidosis Lactic acid of 3.9. Likely secondary to dehydration IV hydration as above. Trend lactic acid. Hyperbilirubinemia High bilirubin presentation was 1.10. Her bilirubin exactly a year ago was also 1.10. Previous bilirubin on file has been normal. Trend CMP. Diabetes mellitus Patient with hyperglycemia on presentation Reportedly takes basal insulin 25 units each night. Will de-escalate to 20 units each night for now. Clear liquid diet ordered. Accu-Chek QA CHS with correction scale insulin ordered. History of recurrent kidney stones With RAE de-escalate allopurinol dose. We will hold potassium citrate for now. Acute bronchitis Improving Mucinex ordered. DVT prophylaxis: Subcutaneous Lovenox ordered. Charges/Coding Visit Charges Inpatient E&M: 75918 Init Hosp L3
[2022-02-05 23:17] VITALS: BP 156/72; PULSE 117; RESP 18; TEMP 37.2; O2SAT 99
[2022-02-06] VITALS (18 sets, daily range): BP systolic 141–181; BP diastolic 84–100; PULSE 88–124; RESP 16–28; TEMP 36.7–37.7; O2SAT 94–100; BMI 47.5
[2022-02-06] MEDS: Morphine 2 MG/ML Syringe IV ×7 (01:13→22:39)
[2022-02-06] MEDS: guaiFENesin 1,200 MG Tablet 1200 MG PO ×3 (01:13→22:38)
[2022-02-06] MEDS: Insulin Glargine-YFGN 100 UNIT/ML Pen 20 UNIT SC ×2 (01:21→22:43)
[2022-02-06] MEDS: 0.9% Normal Saline 1,000 ML 100 ML IV ×2 (01:21→08:46)
[2022-02-06 01:31] LABS: Reflex Lactate? Y
[2022-02-06 02:06] LABS: Bedside Glucose 311 mg/dL (74-106)
[2022-02-06 02:19] LABS: Lactic Acid 3.7 mmol/L (0.4-1.9)
[2022-02-06] MEDS: Ondansetron 4 MG/2 ML Vial IV ×2 (03:39→13:11)
[2022-02-06] MEDS: Dicyclomine 10 MG Capsule PO ×4 (04:06→22:38)
[2022-02-06 05:39] LABS: Absolute Lymphocyte Count 1.06 X10^3/uL (0.83-4.51); Absolute Neutrophil Count 7.6 X10^3/uL (2.0-7.7); Basophil# 0.04 X10^3/uL; Basophil% 0.4 % (0-1); Eosinophil# 0.02 X10^3/uL; Eosinophils% 0.2 % (0-5); Hematocrit 46.8 % (37-47); Hemoglobin 15.7 g/dL (12.0-15.0); Lymphocyte # 1.06 X10^3/ul (0.83-4.51); Lymphocyte % 11.2 % (19-41); Mean Corp Hgb Conc 33.5 g/dL (32-36); Mean Corpuscular Hgb 28.9 pg (27.0-32.0); Mean Platelet Vol. 9.9 fl (6.2-12.0); Monocyte# 0.68 X10^3/uL; Monocyte% 7.2 % (0-10); NRBC Flagged by Analyzer 0 % (0-5); Neutrophil # 7.57 X10^3/uL (2.7-7.7); Neutrophil % 79.8 % (47-70); Platelet Count 197 K/mm3 (150-450); RBC Distribution Width CV 13.7 % (11.6-14.6); RBC Distribution Width SD 42.4 fl (35.1-43.9); Red Blood Count 5.44 M/mm3 (4.2-5.4); White Blood Count 9.5 K/mm3 (4.4-11.0)
[2022-02-06 06:50] LABS: ALB/GLOB Ratio 0.6 RATIO (0.9-2.4); AST(SGOT) 24 U/L (15-37); Alanine Aminotransfer ALT/SGPT 32 U/L (13-56); Albumin, Serum 2.9 g/dL (3.2-5.0); Alkaline Phosphatase 115 U/L (45-117); Anion Gap 10 (5-15); BUN 8 mg/dL (7-18); BUN/Creat Ratio 8.9 RATIO (10-20); Calcium,Total 7.8 mg/dL (8.5-10.1); Chloride 97 mmol/L (98-107); EST Glomerular Filtration Rate 71 mL/min (>60); Est Glom Filt Rate - Afr Amer 86 mL/min (>60); Estimated Creatinine Clearance 71.56 ml/min; Glucose 272 mg/dL (74-106); Potassium 3.6 mmol/L (3.5-5.1); Protein, Total 7.9 g/dL (6.4-8.2); Sodium Level 129 mmol/L (136-145)
[2022-02-06] MEDS: Insulin Lispro 100 UNIT/ML INSULN.PEN SC ×4 (07:02→22:41)
[2022-02-06 07:11] LABS: Bedside Glucose 318 mg/dL (74-106)
[2022-02-06] MEDS: Albuterol 2.5 MG/3 ML VIAL.NEB. INHALATION (07:31)
[2022-02-06] MEDS: DULoxetine Hcl 60 MG Capsule PO (08:44)
[2022-02-06] MEDS: Atenolol 25 MG Tablet PO (08:44)
[2022-02-06] MEDS: Allopurinol 100 MG Tablet PO (08:44)
[2022-02-06] MEDS: Enoxaparin 40 MG/0.4 ML Syringe SC (08:44)
[2022-02-06] MEDS: Gabapentin 100 MG Capsule PO ×3 (08:44→16:02)
[2022-02-06] MEDS: 0.9% Saline Lock 10 ML Syringe IV ×3 (08:51→18:11)
--- NOTE | 2022-02-06 09:54 | PN.HOSP_ITS ---
Subjective Subjective still with diarrhea, no further vomiting. Objective Data Objective Data Vital Signs: Vital Signs Temp Pulse Resp BP Pulse Ox 37.3 C H 109 H 20 H 157/96 H 94 02/06/22 08:40 02/06/22 09:00 02/06/22 08:40 02/06/22 08:40 02/06/22 08:40 Oxygen Flow Rate (L/min) 4 Oxygen Delivery Method Room Air Weight: 133.674 kg Body Mass Index (BMI) 47.5 Intake & Output: Intake and Output for Last 24 Hours 02/04/22 02/05/22 02/06/22 23:59 23:59 23:59 Intake Total 1000 / 1000 2241.67 / 2241.67 Output Total 600 / 600 Balance 1000 / 1000 1641.67 / 1641.67 Lab / Micro Data Result Diagrams: 02/06/22 05:03 02/06/22 05:03 Labs: Laboratory Results - last 24 hr 02/05/22 21:20: WBC 13.7 H, RBC 6.17 H, Hgb 18.0 H*, Hct 52.8 H, MCV 85.6, MCH 29.2, MCHC 34.1, RDW Std Deviation 41.4, RDW Coeff of Eleuterio 13.5, Plt Count 300, MPV 9.7, Immature Gran % (Auto) 1.000 H, Neut % (Auto) 86.7 H, Lymph % (Auto) 5.7 L, [place] % (Auto) 5.6, Eos % (Auto) 0.6, Baso % (Auto) 0.4, Absolute Neuts (auto) 11.9 H, Absolute Lymphs (auto) 0.78 L, Nucleated RBC % 0, Diff Path Review February02/05/22 21:20: Sodium 128 L, Potassium 4.1, Chloride 92 L, Carbon Dioxide 27.0, Anion Gap 9, BUN 10, Creatinine 1.44 H, Estim Creat Clear Calc 46.46, Est GFR (MDRD) Af Amer 50 L, Est GFR (MDRD) Non-Af 41 L, BUN/Creatinine Ratio 6.9 L, Glucose 330 H, Calcium 8.7, Total Bilirubin 1.10 H, AST 35, ALT 43, Alkaline [place] sphatase 149 H, Total Protein 9.6 H, Albumin 3.3, Globulin 6.3 H, Albumin/Globulin Ratio 0.5 L, Lipase 43 L 02/05/22 21:20: Lactic Acid 3.9 H* 02/06/22 01:20: POC Glucose 311 H 02/06/22 01:45: Lactic Acid 3.7 H* 02/06/22 05:03: WBC 9.5, RBC 5.44 H, Hgb 15.7 H, Hct 46.8, MCV 86.0, MCH 28.9, MCHC 33.5, RDW Std Deviation 42.4, RDW Coeff of Eleuterio 13.7, Plt Count 197, MPV 9.9, Immature Gran % (Auto) 1.200 H, Neut % (Auto) 79.8 H, Lymph % (Auto) 11.2 L , [place] % (Auto) 7.2, Eos % (Auto) 0.2, Baso % (Auto) 0.4, Absolute Neuts (auto) 7.6, Absolute Lymphs (auto) 1.06, Nucleated RBC % 0 02/06/22 05:03: Sodium 129 L, Potassium 3.6, Chloride 97 L, Carbon Dioxide 22.0, Anion Gap 10, BUN 8, Creatinine 0.90, Estim Creat Clear Calc 71.56, Est GFR (MDRD) Af Amer 86, Est GFR (MDRD) Non-Af 71, BUN/Creatinine Ratio 8.9 L, Glucose 272 H, Calcium 7.8 L, Total Bilirubin 1.00, AST 24, ALT 32, Alkaline Phosphatase 115, Total Protein 7.9, Albumin 2.9 L, Globulin 5.0 H, Albumin/Globulin Ratio 0.6 L 02/06/22 06:53: POC Glucose 318 H Micro: Microbiology 02/05/22 21:45 Stool C. difficile DNA Amplification - Final 02/05/22 21:45 Stool Enteric Bacteriology - Final Rotavirus Radiography Diagnostic Testing: Radiology Impression Abdomen/Pelvis CT 02/05/22 20:59 IMPRESSION: 1. 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 2. Hepatic steatosis and nodularity, suggestive of cirrhosis. 3. Splenomegaly. Electronically Signed: Ramon Yoon MD at 22:42 EDT , Physical Exam Const alert and no apparent distress HEENT Head and Scalp: normocephalic Resp normal respiratory effort, no retractions, no use of accessory muscles and clear to auscultation bilaterally Cardio regular rate, regular rhythm, S1 normal heart sound and S2 normal heart sound GI normal to inspection, nondistended, normoactive bowel sounds GI Narrative: slightly tender. distended. Extremity normal to inspection Psych affect normal Assessment & Plan Assessment/Plan (1) Gastroenteritis: (2) Hyponatremia: PLAN: 1. Rotavirus gastroenteritis * contracted from family * complicated by h/o colectomy * C. diff negative * add imodium * continue IVF 2. Hyponatremia * acute, 2/2 volume depletion * continue with IVF. monitor 3. large parastomal hernia * not incarcerated, associated with ileostomy * follow up with general surgery as outpt. 4. RAE * 2/2 dehydration * improving * continue with IVF 5. Ulcerative Colitis * 2/2 colectomy * not on any chronic medications. 6. VTE prophylaxis: LMWH Charges/Coding Visit Charges Inpatient E&M: 84355 Subs Hosp L2
[2022-02-06] MEDS: Loperamide 2 MG Capsule PO (11:26)
[2022-02-06 11:35] LABS: Bedside Glucose 263 mg/dL (74-106)
[2022-02-06] MEDS: Ipratropium/Albuterol Sulfate 3 ML AMPUL.NEB INHALATION ×3 (13:32→23:07)
[2022-02-06 13:42] LABS: Pathologist Review Reviewed
--- NOTE | 2022-02-06 16:00 | CASEMGMT ---
AMAIRANI JENKINS Assessment: Face to Face with pt for initial transition planning/care coordination assessment. RN GREGORY introduced self and role at [facility], pt voices understanding and consents to assessment. Pt is A/O x4 and answers all questions appropriately at this time. Pt lying in bed with and son at bedside in no distress. Care providers, pharmacy, and demographics verified/updated. Admitting Dx: acute gastroenteritis PCP:Damien Specialists: Justo, uro; Helen, neuro, [place]alie, onc; Jarvis, cardio Preferred [facility]acy: [facility] Insurance: [place] Prescription Benefit: yes LW/HPOA: Pt denies having a LW/DPOA and denies need for info regarding AD. LNOK: Mikhail Xavier, Living Arrangements: Pt lives with and 2 sons in a single house with 3 steps to enter with a ramp. Pt reports she is I in ADL's and denies concerns at home. Transportation: Pt drives self and denies concerns with transportation. DME/HHC/SNF: Pt has a w/c at home but does not use. Pt has had [facility]HC in the past and denies SNF stays. Pt has an ileostomy that she is I with and obtains her own supplies and has sufficient supplies. Pt states no concerns with going home at time of dc. Pt states no further concerns/needs. CM to follow. Advised pt to ask CM if any further question/concerns/needs arise, voices understanding. Pt Goal: Home Plan: Home
[2022-02-06] MEDS: 0.9% Normal Saline 1,000 ML 150 ML IV ×2 (16:03→22:47)
[2022-02-06 16:15] LABS: Bedside Glucose 271 mg/dL (74-106)
[2022-02-06 22:56] LABS: Bedside Glucose 251 mg/dL (74-106)
[2022-02-07] VITALS (10 sets, daily range): BP systolic 121–143; BP diastolic 75–86; PULSE 102–118; RESP 18–20; TEMP 36.6–38.2; O2SAT 90–98
[2022-02-07] MEDS: HYDROmorphone 2 MG TABLET PO ×2 (03:56→09:15)
[2022-02-07] MEDS: Albuterol 2.5 MG/3 ML VIAL.NEB. INHALATION (04:35)
[2022-02-07] MEDS: 0.9% Normal Saline 1,000 ML 150 ML IV ×2 (05:30→11:40)
[2022-02-07] MEDS: Acetaminophen 325 MG Tablet 650 MG PO (05:33)
[2022-02-07 05:40] LABS: Bedside Glucose 215 mg/dL (74-106)
[2022-02-07 06:10] LABS: Absolute Lymphocyte Count 1.41 X10^3/uL (0.83-4.51); Absolute Neutrophil Count 5.3 X10^3/uL (2.0-7.7); Basophil# 0.03 X10^3/uL; Basophil% 0.4 % (0-1); Eosinophil# 0.04 X10^3/uL; Eosinophils% 0.5 % (0-5); Hematocrit 42.1 % (37-47); Hemoglobin 14.1 g/dL (12.0-15.0); Lymphocyte # 1.41 X10^3/ul (0.83-4.51); Lymphocyte % 17.8 % (19-41); Mean Corp Hgb Conc 33.5 g/dL (32-36); Mean Corpuscular Hgb 29.2 pg (27.0-32.0); Mean Corpuscular Volume 87.2 fL (81-99); Mean Platelet Vol. 9.3 fl (6.2-12.0); Monocyte# 1.04 X10^3/uL; Monocyte% 13.1 % (0-10); NRBC Flagged by Analyzer 0 % (0-5); Neutrophil # 5.32 X10^3/uL (2.7-7.7); Neutrophil % 67.2 % (47-70); Platelet Count 146 K/mm3 (150-450); RBC Distribution Width CV 13.8 % (11.6-14.6); Red Blood Count 4.83 M/mm3 (4.2-5.4); White Blood Count 7.9 K/mm3 (4.4-11.0)
[2022-02-07] MEDS: Insulin Lispro 100 UNIT/ML INSULN.PEN SC ×2 (06:13→11:37)
[2022-02-07] MEDS: Dicyclomine 10 MG Capsule PO ×2 (06:13→11:37)
[2022-02-07 06:55] LABS: Anion Gap 6 (5-15); BUN 5 mg/dL (7-18); BUN/Creat Ratio 6.7 RATIO (10-20); Calcium,Total 7.7 mg/dL (8.5-10.1); Chloride 99 mmol/L (98-107); Creatinine, Serum 0.75 mg/dL (0.55-1.02); EST Glomerular Filtration Rate 88 mL/min (>60); Est Glom Filt Rate - Afr Amer 106 mL/min (>60); Estimated Creatinine Clearance 85.88 ml/min; Glucose 206 mg/dL (74-106); Potassium 3.3 mmol/L (3.5-5.1); Sodium Level 130 mmol/L (136-145)
--- NOTE | 2022-02-07 07:13 | PN.HOSP_ITS ---
Subjective Subjective Still with diarrhea, 1500 cc yesterday. Tachycardia. Had some oral intake of 400cc. Feels better, but still with diarrhea. Objective Data Objective Data Vital Signs: Vital Signs Temp Pulse Resp BP Pulse Ox 37.3 C H 115 H 18 141/86 H 94 02/07/22 06:15 02/07/22 06:15 02/07/22 06:15 02/07/22 06:15 02/07/22 06:15 Oxygen Flow Rate (L/min) 2 Oxygen Delivery Method Nasal Cannula Weight: 133.674 kg Body Mass Index (BMI) 47.5 Intake & Output: Intake and Output for Last 24 Hours 02/05/22 02/06/22 02/07/22 23:59 23:59 23:59 Intake Total 1000 / 1000 4141.67 / 4141.67 1000 / 1000 Output Total 2450 / 2450 1250 / 1250 Balance 1000 / 1000 1691.67 / 1691.67 -250 / -250 Lab / Micro Data Result Diagrams: 02/07/22 06:00 02/07/22 06:00 Labs: Laboratory Results - last 24 hr 02/05/22 21:20: Diff Path Review Reviewed 02/06/22 11:24: POC Glucose 263 H 02/06/22 16:00: POC Glucose 271 H 02/06/22 22:36: POC Glucose 251 H 02/07/22 05:37: POC Glucose 215 H 02/07/22 06:00: WBC 7.9, RBC 4.83, Hgb 14.1, Hct 42.1, MCV 87.2, MCH 29.2, MCHC 33.5, RDW Std Deviation 44.0 H, RDW Coeff of Eleuterio 13.8, Plt Count 146 L, MPV 9.3, Immature Gran % (Auto) 1.000 H, Neut % (Auto) 67.2, Lymph % (Auto) 17.8 L, [place] % (Auto) 13.1 H, Eos % (Auto) 0.5, Baso % (Auto) 0.4, Absolute Neuts (auto) 5.3, Absolute Lymphs (auto) 1.41, Nucleated RBC % 0 02/07/22 06:00: Sodium 130 L, Potassium 3.3 L, Chloride 99, Carbon Dioxide 25.0, Anion Gap 6, BUN 5 L, Creatinine 0.75, Estim Creat Clear Calc 85.88, Est GFR (MDRD) Af Amer 106, Est GFR (MDRD) Non-Af 88, BUN/Creatinine Ratio 6.7 L, Glu cose 206 H, Calcium 7.7 L Micro: Microbiology 02/05/22 21:45 Stool C. difficile DNA Amplification - Final 02/05/22 21:45 Stool Enteric Bacteriology - Final Rotavirus Physical Exam Const alert and no apparent distress Resp normal respiratory effort, no retractions, no use of accessory muscles and clear to auscultation bilaterally Cardio regular rate, regular rhythm, S1 normal heart sound and S2 normal heart sound GI normal to inspection, nondistended, normoactive bowel sounds, soft to palpation, non-tender and non-distended GI Narrative: liquid brown stool in ostomy. Extremity normal to inspection and full ROM Psych affect normal Assessment & Plan Assessment/Plan (1) Gastroenteritis: (2) Hyponatremia: PLAN: 1. Rotavirus gastroenteritis * improved * contracted from family * complicated by h/o colectomy * C. diff negative * add imodium * continue IVF 2. Hyponatremia * acute, 2/2 volume depletion * continue with IVF. monitor 3. large parastomal hernia * not incarcerated, associated with ileostomy * follow up with general surgery as outpt. 4. RAE * 2/2 dehydration * resolved * continue with IVF 5. Ulcerative Colitis * 2/2 colectomy * not on any chronic medications. * given the positive rotavirus, this is not a UC flare 6. VTE prophylaxis: LMWH 7. Hypokalemia * 2/2 diarrhea * replace * check magnesium 8. Disposition * pending decreased outpt and tolerance for PO Charges/Coding Visit Charges Inpatient E&M: 39480 Subs Hosp L2
[2022-02-07 08:53] LABS: Magnesium 1.6 mg/dL (1.6-2.6)
[2022-02-07] MEDS: Gabapentin 100 MG Capsule PO ×2 (09:15→11:37)
[2022-02-07] MEDS: Atenolol 25 MG Tablet PO (09:15)
[2022-02-07] MEDS: Allopurinol 100 MG Tablet PO (09:15)
[2022-02-07] MEDS: Enoxaparin 40 MG/0.4 ML Syringe SC (09:15)
[2022-02-07] MEDS: Loperamide 2 MG Capsule PO (09:15)
[2022-02-07] MEDS: guaiFENesin 1,200 MG Tablet 1200 MG PO (09:15)
[2022-02-07] MEDS: Potassium Chloride Oral Tablet 20 MEQ 40 MEQ PO (09:15)
[2022-02-07] MEDS: DULoxetine Hcl 60 MG Capsule PO (09:15)
[2022-02-07] MEDS: Ipratropium/Albuterol Sulfate 3 ML AMPUL.NEB INHALATION (11:07)
[2022-02-07 11:50] LABS: Bedside Glucose 247 mg/dL (74-106)
[2022-02-07] MEDS: 0.9% Saline Lock 10 ML Syringe IV (14:25)
--- NOTE | 2022-02-07 15:39 | PCM.DC ---
Discharge Instructions Diet Discharge Diet: - (bland diet, advance as tolerated) Activity Discharge Activity: Return to Normal Activity Dressing / Incision Call your doctor if you observe: - (intractable diarrhea) Follow Up Care Test Results: Test results from this visit will be discussed in further detail at your follow-up appointment, if applicable. Discharge Plan Admission Admit Date/Time: 02/05/22 22:52 Primary Reason for Your Visit: Rotavirus gastroenteritis Attending Provider: Jose Carlos Savage Primary Care Provider: Angelica Quezada Instructions Additional Instructions / Restrictions: You and your family to wash hands or use hand inbound call center representative frequently for the next 48 hours. Discharge Orders/Prescriptions Prescriptions: New dicyclomine 10 mg Capsule 10 mg PO ACHS PRN (Reason: abdominal cramping) Qty: 20 RF: 0 loperamide 2 mg Capsule 2 mg PO Q4H PRN PRN (Reason: Diarrhea) Qty: 0 RF: 0 acetaminophen 500 mg capsule 1,000 mg PO Q8H PRN PRN (Reason: fever or pain) Qty: 30 RF: 0 Continued albuterol sulfate 2.5 MG/3 ML solution for nebulization 2.5 mg inhalation Q4H PRN PRN (Reason: Bronchospasm) RF: 0 atenolol 25 MG tablet 25 mg PO DAILY RF: 0 albuterol sulfate 1 INHALER inhaler 2 puff inhalation PRN PRN (Reason: Bronchospasm) RF: 0 potassium citrate 10 MEQ tablet extended release 10 meq PO BID RF: 0 allopurinol 300 MG tablet 300 mg PO DAILY RF: 0 duloxetine 20 mg capsule,delayed release(DR/EC) 60 mg PO DAILY RF: 0 hyoscyamine sulfate 0.375 MG tablet 0.375 mg PO Q12 RF: 0 diclofenac sodium 50 mg Tablet,Delayed Release (Dr/Ec) 50 mg PO BID RF: 0 Basaglar KwikPen U-100 Insulin 24 units QHS RF: 0 Novolog Flexpen U-100 Insulin RF: 0 gabapentin 300 mg Capsule 300 mg PO BID RF: 0 fluconazole [Diflucan] 150 mg tablet 150 mg PO Q3D PRN (Reason: yeast infection) RF: 0 Referrals / Follow Up: Angelica Quezada MD [Primary Care Provider] - Within 2 Weeks Disposition Disposition (needs filled in before D/C Order can be placed): Home, Self Care
--- NOTE | 2022-02-07 15:44 | DS.PCM_ITS ---
Providers Date of Admission: 02/05/22 Primary Care Physician: Dr. Angelica Quezada MD Reason For Visit: ACUTE GASTROENTERITIS Diagnosis Discharge Diagnosis (1) Gastroenteritis: Status: Acute Code(s): K52.9 - Noninfective gastroenteritis and colitis, unspecified (2) Hyponatremia: Status: Acute Code(s): E87.1 - Hypo-osmolality and hyponatremia Medications at Discharge Home Medications albuterol sulfate 2 puff INHALATION PRN PRN 08/25/13 albuterol sulfate 2.5 mg INHALATION Q4H PRN PRN 08/25/13 atenolol 25 mg PO DAILY 08/25/13 potassium citrate 10 meq PO BID 02/21/16 allopurinol 300 mg PO DAILY 10/20/17 duloxetine 20 mg capsule,delayed release 60 mg PO DAILY 06/28/20 hyoscyamine sulfate 0.375 mg PO Q12 02/05/21 diclofenac sodium 50 mg PO BID 10/16/21 Basaglar KwikPen U-100 Insulin 24 units QHS 02/05/22 Novolog Flexpen U-100 Insulin 02/05/22 fluconazole [Diflucan] 150 mg PO Q3D PRN 02/06/22 gabapentin 300 mg PO BID 02/06/22 acetaminophen 1,000 mg PO Q8H PRN PRN #30 cap 02/07/22 dicyclomine 10 mg PO ACHS PRN #20 cap 02/07/22 loperamide 2 mg PO Q4H PRN PRN #0 cap 02/07/22 Hospital Course Operations None Procedures None Summary of Care Provided Minutes Spent on Discharge: 32 Hospital Course: 47 year old female presents with intractable diarrhea from rotavirus. 1. Rotavirus gastroenteritis improved, but diarrhea not completely resolved, likely complicated by h/o colectomy for UC C. diff negative add imodium 2. Hyponatremia acute, 2/2 volume depletion continue with IVF. monitor 3. large parastomal hernia not incarcerated, associated with ileostomy follow up with general surgery as outpt. 4. RAE 2/2 dehydration resolved continue with IVF 5. Ulcerative Colitis 2/2 colectomy not on any chronic medications. given the positive rotavirus, this is not a UC flare 6. VTE prophylaxis: LMWH 7. Hypokalemia 2/2 diarrhea replace Weight / BMI Weight Weight: 133.674 kg Body Mass Index (BMI) 47.5 ABG / Lab / Microbiology Data Result Diagrams: 02/07/22 06:00 02/07/22 06:00 Laboratory: Laboratory Results - last 24 hr 02/06/22 16:00: POC Glucose 271 H 02/06/22 22:36: POC Glucose 251 H 02/07/22 05:37: POC Glucose 215 H 02/07/22 06:00: WBC 7.9, RBC 4.83, Hgb 14.1, Hct 42.1, MCV 87.2, MCH 29.2, MCHC 33.5, RDW Std Deviation 44.0 H, RDW Coeff of Eleuterio 13.8, Plt Count 146 L, MPV 9.3, Immature Gran % (Auto) 1.000 H, Neut % (Auto) 67.2, Lymph % (Auto) 17.8 L, [place] % (Auto) 13.1 H, Eos % (Auto) 0.5, Baso % (Auto) 0.4, Absolute Neuts (auto) 5.3, Absolute Lymphs (auto) 1.41, Nucleated RBC % 0 02/07/22 06:00: Sodium 130 L, Potassium 3.3 L, Chloride 99, Carbon Dioxide 25.0, Anion Gap 6, BUN 5 L, Creatinine 0.75, Estim Creat Clear Calc 85.88, Est GFR (MDRD) Af Amer 106, Est GFR (MDRD) Non-Af 88, BUN/Creatinine Ratio 6.7 L, Glucose 206 H, Calcium 7.7 L 02/07/22 06:00: Magnesium 1.6 02/07/22 11:35: POC Glucose 247 H Microbiology: Microbiology 02/05/22 21:45 Stool C. difficile DNA Amplification - Final 02/05/22 21:45 Stool Enteric Bacteriology - Final Rotavirus D/C Instructions Discharge Diet: - (bland diet, advance as tolerated) Call your doctor if you observe: - (intractable diarrhea) Meaningful Use Info Meaningful Use Diagnoses (Choose all that apply): None applicable Discharge Plan Admission Admit Date/Time: 02/05/22 22:52 Primary Reason for Your Visit: Rotavirus gastroenteritis Attending Provider: Jose Carlos Savage Primary Care Provider: Angelica Quezada Instructions Additional Instructions / Restrictions: You and your family to wash hands or use hand furnace operator and tender frequently for the next 48 hours. Discharge Orders/Prescriptions Prescriptions: New dicyclomine 10 mg Capsule 10 mg PO ACHS PRN (Reason: abdominal cramping) Qty: 20 RF: 0 loperamide 2 mg Capsule 2 mg PO Q4H PRN PRN (Reason: Diarrhea) Qty: 0 RF: 0 acetaminophen 500 mg capsule 1,000 mg PO Q8H PRN PRN (Reason: fever or pain) Qty: 30 RF: 0 Continued albuterol sulfate 2.5 MG/3 ML solution for nebulization 2.5 mg inhalation Q4H PRN PRN (Reason: Bronchospasm) RF: 0 atenolol 25 MG tablet 25 mg PO DAILY RF: 0 albuterol sulfate 1 INHALER inhaler 2 puff inhalation PRN PRN (Reason: Bronchospasm) RF: 0 potassium citrate 10 MEQ tablet extended release 10 meq PO BID RF: 0 allopurinol 300 MG tablet 300 mg PO DAILY RF: 0 duloxetine 20 mg capsule,delayed release(DR/EC) 60 mg PO DAILY RF: 0 hyoscyamine sulfate 0.375 MG tablet 0.375 mg PO Q12 RF: 0 diclofenac sodium 50 mg Tablet,Delayed Release (Dr/Ec) 50 mg PO BID RF: 0 Basaglar KwikPen U-100 Insulin 24 units QHS RF: 0 Novolog Flexpen U-100 Insulin RF: 0 gabapentin 300 mg Capsule 300 mg PO BID RF: 0 fluconazole [Diflucan] 150 mg tablet 150 mg PO Q3D PRN (Reason: yeast infection) RF: 0 Referrals / Follow Up: Angelica Quezada MD [Primary Care Provider] - Within 2 Weeks Disposition Disposition (needs filled in before D/C Order can be placed): Home, Self Care Charges/Coding Visit Charges Inpatient E&M: 52765 Disch Hosp
== END 2022-02-07 16:42 | disposition home or self-care (01) | DRG 392 ==
LOC: ED 22:53 → MS3 23:15
PROVIDERS: Admitting Provider Hospitalist; Emergency Provider Emergency Medicine; PCP Family Medicine
DX: A08.0 Rotaviral enteritis (principal); E87.1 Hypo-osmolality and hyponatremia; N17.9 Acute kidney failure, unspecified; Z68.42 Body mass index [BMI] 45.0-49.9, adult; K51.90 Ulcerative colitis, unspecified, without complications; E66.01 Morbid (severe) obesity due to excess calories; E11.65 Type 2 diabetes mellitus with hyperglycemia; Z93.2 Ileostomy status; I10 Essential (primary) hypertension; J45.909 Unspecified asthma, uncomplicated; M19.90 Unspecified osteoarthritis, unspecified site; K43.5 Parastomal hernia without obstruction or gangrene; E86.0 Dehydration; J20.9 Acute bronchitis, unspecified; E80.7 Disorder of bilirubin metabolism, unspecified; E86.1 Hypovolemia; E87.8 Other disorders of electrolyte and fluid balance, not elsewhere classified; E87.6 Hypokalemia; Z79.899 Other long term (current) drug therapy; Z90.49 Acquired absence of other specified parts of digestive tract; Z87.891 Personal history of nicotine dependence; Z87.442 Personal history of urinary calculi
CPT/HCPCS: 36415; 74176; 80048; 80053; 82962; 83605; 83690; 83735; 85025; 87493; 87506; 94640; 97802; 99251; 99285; J7030; A4216; G0463; J2405

== ENCOUNTER 2022-06-25 10:13 | Emergency (ER) | payer OTHER, SELFPAY ==
[2022-06-25 10:14] VITALS: BP 156/85; PULSE 95; RESP 14; TEMP 36.8; O2SAT 95; BMI 48.2
--- NOTE | 2022-06-25 10:52 | EDS_ITS ---
HPI HPI - GI History of Present Illness Chief Complaint: Abd Pain Informant: patient Abdominal Pain/Flank Pain Onset: Today Context: Sudden Onset Timing: Continuous Quality: Stabbing and - (Pressure) Location: Epigastric, RUQ and LUQ Worsened by: Nothing Relieved by: Nothing Nausea/Vomiting/Emesis GI Symptom: Positive for Nausea and Vomiting Onset: Today Quality: Negative for Blood streaks, Coffee ground or Hematemesis Diarrhea/Melena/Hematochezia GI Symptom: Positive for Diarrhea; Negative for Melena or Hematochezia Onset: Today Stool Quality: Positive for Watery Associated Symptoms Associated Symptoms: Negative for Dysuria, Frequency or Hematuria Narrative Narrative: Presents with abdominal pain, nausea, vomiting, and diarrhea that began this morning. Patient states he came on rather suddenly this morning. Patient describes her pain as stabbing and pressure. Patient states it is mainly over the upper abdomen. Patient states nothing makes it better nothing makes it worse. Patient states she is having nausea and vomiting and is unable to keep anything down. Patient denies any hematemesis or coffee-ground emesis. Patient states she has ileostomy and she is having watery diarrhea out of her ileostomy. Patient denies any melena or hematochezia. Patient denies any dysuria, hematuria, or urinary frequency. [facility] Medical History Abnormal bruising Anemia Arthritis Asthma Cancer Diabetes Endocrine tumor Facial paresthesia Facial weakness GERD (gastroesophageal reflux disease) Hernia History of asthma HTN (hypertension) HTN (hypertension) Immunosuppressed status Kidney disease Liver disease Lung disease Meningioma Nephrolithiasis Neuroendocrine tumor of pancreas Psoriasis Severe headache SOB (shortness of breath) Ulcerative colitis Home Medications albuterol sulfate 2.5 mg/3 mL (0.083 %) solution for nebulization 2.5 mg inhalation Q4H PRN PRN Bronchospasm 08/25/13 [History Last Taken Unknown] albuterol sulfate 90 mcg/actuation aerosol inhaler 2 puff inhalation PRN PRN Bronchospasm 08/25/13 [History Last Taken 02/21/16] atenolol 25 mg tablet 25 mg PO DAILY 08/25/13 [History Last Taken 06/16/19 06:00 25 MG] potassium citrate 10 mEq (1,080 mg) tablet,extended release 10 meq PO BID 02/21/16 [History Last Taken 02/21/16] allopurinol 300 mg tablet 300 mg PO DAILY 10/20/17 [History Last Taken Unknown] duloxetine 20 mg capsule,delayed release 60 mg PO DAILY 06/28/20 [History Last Taken Unknown] hyoscyamine sulfate 0.375 mg tablet,extended release,12 hr 0.375 mg PO Q12 02/05/21 [History Last Taken Unknown] diclofenac sodium 50 mg tablet,delayed release 50 mg PO BID 10/16/21 [History Last Taken Unknown] Basaglar KwikPen U-100 Insulin 24 units QHS sugar 02/05/22 [History Last Taken Unknown] Novolog Flexpen U-100 Insulin 02/05/22 [History Last Taken Unknown] fluconazole 150 mg tablet (Diflucan) 150 mg PO Q3D PRN yeast infection 02/06/22 [History Last Taken Unknown] gabapentin 300 mg capsule 300 mg PO BID neuropathy 02/06/22 [History Last Taken Unknown] acetaminophen 500 mg capsule 1,000 mg PO Q8H PRN PRN fever or pain #30 caps 02/07/22 [Rx Last Taken Unknown] dicyclomine 10 mg capsule 10 mg PO ACHS PRN abdominal cramping #20 caps 02/07/22 [Rx Last Taken Unknown] loperamide 2 mg capsule 2 mg PO Q4H PRN PRN Diarrhea #0 caps 02/07/22 [Rx Last Taken Unknown] ondansetron 4 mg disintegrating tablet 4 mg PO Q8H PRN PRN Nausea #10 tabs 06/25/22 [Rx Last Taken Unknown] Allergy/AdvReac Type Severity Reaction Status Date / Time codeine Allergy Anaphylaxis Verified 06/25/22 10:14 hydrocodone bitartrate Allergy Rash Verified 06/25/22 10:14 [From Vicodin] oxycodone HCl [From Percocet] Allergy Anaphylaxis Verified 06/25/22 10:14 latex AdvReac Mild Rash Verified 06/25/22 10:14 Family History Other Diabetes Heart disease Liver cancer Lung disease Skin cancer Thyroid disorder Surgical History H/O total colectomy History of appendectomy History of cholecystectomy History of lithotripsy Social History Smoking Status: Former smoker alcohol intake: never ROS ROS ED Constitutional Constitutional ED: Denies chills or fever(s) Eyes Eyes: Denies blurry vision or change in vision ENT ENT ED: Denies rhinorrhea or sore throat Cardiovascular Cardiovascular: Reports palpitations; Denies chest pain Respiratory/Chest Respiratory/Chest: Denies cough or dyspnea Gastrointestinal Gastrointestinal: Reports abdominal pain, diarrhea, nausea and vomiting; Denies melena Genitourinary Genitourinary ED: Denies dysuria or hematuria Musculoskeletal Musculoskeletal: Denies back pain or neck pain Integumentary Denies abscess or rash Neurologic Neurologic: Denies headache(s) or weakness Allergic/Immunologic Allergic/Immunologic ED: Denies mouth swelling or urticaria EXAM Physical Exam Const Vital Signs: 06/25/22 10:14 06/25/22 13:28 Temperature 98.2 F Temperature Source Temporal Pulse Rate 95 84 Respiratory Rate 14 16 Blood Pressure 156/85 H 148/78 H Blood Pressure Mean 108 101 Pulse Ox 95 98 Oxygen Delivery Method Room Air Room Air Positive well nourished, well developed and obese General Appearance ED: well developed and NAD Nutritional Appearance: obese HEENT Reports moist mucous membranes Neck supple and no JVD Resp normal respiratory effort and clear to auscultation bilaterally Cardio regular rate, regular rhythm and no murmurs GI normal to inspection, nondistended, normoactive bowel sounds Palpation: soft and tender epigastric, LUQ and RUQ; Negative for guarding or rebound tenderness present Extremity normal to inspection General Extremety ED: Negative for edema or tenderness General Extremity: Negative for edema Neuro oriented x3, CN's II-XII intact bilaterally and no sensory deficits noted Sensorium / Orientation: alert Motor Exam: strength 5/5 throughout Psych mental status grossly normal Skin no rashes or lesions noted MDM MDM MDM Narrative Medical decision making narrative: Patient was given IV fluids, morphine, and Zofran initially. CBC shows a mild leukocytosis of 13.9. Hemoglobin was slightly elevated at 16.6 and hematocrit 49.7. Comprehensive metabolic profile was essentially within normal limits. Lactate was normal. Lipase was normal. Urinalysis does not show any evidence of urinary tract infection or hematuria. CT scan of the abdomen pelvis was obtained. There is a large parastomal hernia. There is no evidence of obstruction. This was interpreted by the radiologist and reviewed by myself. Patient states she has known about the hernia and this is not new. Patient was given a prescription for Zofran. Patient was instructed to start with a liquid diet and advance it as tolerated. Patient was instructed to follow-up with her primary care physician in 3 to 5 days for reevaluation. Patient understood and was agreeable with the plan. All questions were answered. Lab Data Attestation: I reviewed the patient's lab results. Labs: Laboratory Results - last 24 hr 06/25/22 06/25/22 06/25/22 11:15 11:15 11:15 WBC 13.9 H RBC 5.68 H Hgb 16.6 H Hct 49.7 H MCV 87.5 MCH 29.2 MCHC 33.4 RDW Std Deviation 44.4 H RDW Coeff of Eleuterio 14.2 Plt Count 202 MPV 9.6 Immature Gran % (Auto) 0.400 Neut % (Auto) 84.2 H Lymph % (Auto) 8.4 L [place] % (Auto) 5.4 Eos % (Auto) 1.4 Baso % (Auto) 0.2 Absolute Neuts (auto) 11.7 H Absolute Lymphs (auto) 1.17 Nucleated RBC % 0 Sodium 137 Potassium 4.7 Chloride 103 Carbon Dioxide 27.0 Anion Gap 7 BUN 13 Creatinine 0.99 Estim Creat Clear Calc 67.58 Est GFR (MDRD) Af Amer 77 Est GFR (MDRD) Non-Af 63 BUN/Creatinine Ratio 13.1 Glucose 186 H Lactic Acid 1.7 Calcium 9.2 Total Bilirubin 0.60 AST 20 ALT 27 Alkaline Phosphatase 124 H Total Protein 8.2 Albumin 3.3 Globulin 4.9 H Albumin/Globulin Ratio 0.7 L Lipase 111 Urine Color Urine Clarity Urine pH Ur Specific [place] Urine Protein Urine Glucose (UA) Urine Ketones Urine Occult Blood Urine Nitrite Urine Bilirubin Urine Urobilinogen Ur Leukocyte Esterase Urine RBC Urine WBC Ur Squamous Epith Cells Urine Bacteria Urine Mucus 06/25/22 11:22 WBC RBC Hgb Hct MCV MCH MCHC RDW Std Deviation RDW Coeff of Eleuterio Plt Count MPV Immature Gran % (Auto) Neut % (Auto) Lymph % (Auto) [place] % (Auto) Eos % (Auto) Baso % (Auto) Absolute Neuts (auto) Absolute Lymphs (auto) Nucleated RBC % Sodium Potassium Chloride Carbon Dioxide Anion Gap BUN Creatinine Estim Creat Clear Calc Est GFR (MDRD) Af Amer Est GFR (MDRD) Non-Af BUN/Creatinine Ratio Glucose Lactic Acid Calcium Total Bilirubin AST ALT Alkaline Phosphatase Total Protein Albumin Globulin Albumin/Globulin Ratio Lipase Urine Color Yellow Urine Clarity Sl. Cloudy Urine pH 6.0 Ur Specific [place] 1.025 Urine Protein 30 H Urine Glucose (UA) 100 H Urine Ketones 5 H Urine Occult Blood Negative Urine Nitrite Negative Urine Bilirubin Negative Urine Urobilinogen Normal Ur Leukocyte Esterase 25 H Urine RBC 0 SEEN Urine WBC 0-5 SEEN Ur Squamous Epith Cells 5-10 SEEN Urine Bacteria 1+ Urine Mucus 0 SEEN Radiography Diagnostic Testing: Clinical Impression(s) from Imaging Studies Abdomen/Pelvis CT 06/25/22 11:55 IMPRESSION: Right lower quadrant ileostomy with a large parastomal hernia containing multiple nondilated small bowel loops. Fatty infiltration of the liver. Mild hepatomegaly. Borderline splenomegaly. Electronically Signed: Dylan Gross MD at 12:49 EDT , Discharge Plan Triage Chief Complaint: Abd Pain ED Provider: Jose Carlos Crowder Dx/Rx/DC Orders Clinical Impression: Nausea vomiting and diarrhea Instructions: ED Abdominal Pain Unkn Cause Fem, ED Vomiting (Adult) Prescriptions: New ondansetron [ondansetron] 4 mg tablet,disintegrating 4 mg PO Q8H PRN PRN (Reason: Nausea) Qty: 10 0RF No Action albuterol sulfate 2.5 MG/3 ML solution for nebulization 2.5 mg inhalation Q4H PRN PRN (Reason: Bronchospasm) Label Comments: Breathing atenolol 25 MG tablet 25 mg PO DAILY Label Comments: Blood Pressure albuterol sulfate 1 INHALER inhaler 2 puff inhalation PRN PRN (Reason: Bronchospasm) Label Comments: Breathing tx potassium citrate 10 MEQ tablet extended release 10 meq PO BID Label Comments: supplement allopurinol 300 MG tablet 300 mg PO DAILY duloxetine 20 mg capsule,delayed release(DR/EC) 60 mg PO DAILY hyoscyamine sulfate 0.375 MG tablet 0.375 mg PO Q12 diclofenac sodium 50 mg Tablet,Delayed Release (Dr/Ec) 50 mg PO BID Basaglar KwikPen U-100 Insulin 24 units QHS Novolog Flexpen U-100 Insulin gabapentin 300 mg Capsule 300 mg PO BID fluconazole [Diflucan] 150 mg tablet 150 mg PO Q3D PRN (Reason: yeast infection) Rx Instructions: may repeat second dose 72 hrs after first dose if symptoms persist pt to start if needed for yeast infections while taking atbx dicyclomine 10 mg Capsule 10 mg PO ACHS PRN (Reason: abdominal cramping) Qty: 20 0RF loperamide 2 mg Capsule 2 mg PO Q4H PRN PRN (Reason: Diarrhea) Qty: 0 0RF acetaminophen 500 mg capsule 1,000 mg PO Q8H PRN PRN (Reason: fever or pain) Qty: 30 0RF Primary Care Provider: Angelica Quezada Referrals: Angelica Quezada MD [Primary Care Provider] - 3-5 Days Disposition Disposition: Home, Self Care
[2022-06-25] MEDS: Ondansetron 4 MG/2 ML Vial IV (11:24)
[2022-06-25] MEDS: 0.9% Normal Saline 1,000 ML 1000 ML IV (11:26)
[2022-06-25 11:31] LABS: Absolute Lymphocyte Count 1.17 X10^3/uL (0.83-4.51); Absolute Neutrophil Count 11.7 X10^3/uL (2.0-7.7); Basophil# 0.03 X10^3/uL; Basophil% 0.2 % (0-1); Eosinophils% 1.4 % (0-5); Hematocrit 49.7 % (37-47); Hemoglobin 16.6 g/dL (12.0-15.0); Lymphocyte # 1.17 X10^3/ul (0.83-4.51); Lymphocyte % 8.4 % (19-41); Mean Corp Hgb Conc 33.4 g/dL (32-36); Mean Corpuscular Hgb 29.2 pg (27.0-32.0); Mean Corpuscular Volume 87.5 fL (81-99); Mean Platelet Vol. 9.6 fl (6.2-12.0); Monocyte# 0.75 X10^3/uL; Monocyte% 5.4 % (0-10); NRBC Flagged by Analyzer 0 % (0-5); Neutrophil # 11.72 X10^3/uL (2.7-7.7); Neutrophil % 84.2 % (47-70); Platelet Count 202 K/mm3 (150-450); RBC Distribution Width CV 14.2 % (11.6-14.6); RBC Distribution Width SD 44.4 fl (35.1-43.9); Red Blood Count 5.68 M/mm3 (4.2-5.4); White Blood Count 13.9 K/mm3 (4.4-11.0)
[2022-06-25 11:32] LABS: Mucous, Urine 0 SEEN /hpf (<or=2+); Red Blood Cells-Urine 0 SEEN /hpf (0-5)
[2022-06-25 11:34] LABS: Color, Urine Yellow (Yellow); Glucose, Dipstick 100 mg/dl (Normal); Ketone-Dipstick 5 mg/dl (Negative); Leukocyte Esterase-Dipstick 25 /ul (Negative); Nitrite-Dipstick Negative (Negative); Occult Blood-Urine Negative /ul (Negative); Protein-Dipstick 30 mg/dl (Negative); Specific Gravity, Urine 1.025 (1.002-1.030); Urine Bilirubin Dipstick Negative (Negative); Urine Clarity Sl. Cloudy (Clear); Urine Urobilinogen Normal (Normal)
[2022-06-25 11:40] LABS: ALB/GLOB Ratio 0.7 RATIO (0.9-2.4); AST(SGOT) 20 U/L (15-37); Alanine Aminotransfer ALT/SGPT 27 U/L (13-56); Albumin, Serum 3.3 g/dL (3.2-5.0); Alkaline Phosphatase 124 U/L (45-117); Anion Gap 7 (5-15); BUN 13 mg/dL (7-18); BUN/Creat Ratio 13.1 RATIO (10-20); Calcium,Total 9.2 mg/dL (8.5-10.1); Chloride 103 mmol/L (98-107); Creatinine, Serum 0.99 mg/dL (0.55-1.02); EST Glomerular Filtration Rate 63 mL/min (>60); Est Glom Filt Rate - Afr Amer 77 mL/min (>60); Estimated Creatinine Clearance 67.58 ml/min; Globulin 4.9 g/dL (2.2-4.2); Glucose 186 mg/dL (74-106); Lipase 111 U/L (73-393); Potassium 4.7 mmol/L (3.5-5.1); Protein, Total 8.2 g/dL (6.4-8.2); Sodium Level 137 mmol/L (136-145)
[2022-06-25 11:41] LABS: Squamous Epithelial Cells - UA 5-10 SEEN /hpf (5-10); White Blood Cells 0-5 SEEN /hpf (0-5)
[2022-06-25 11:42] LABS: Bacteria 1+ /hpf (None Seen)
[2022-06-25] MEDS: Morphine 4 MG/ML Syringe IV (11:42)
[2022-06-25 11:49] LABS: Lactic Acid 1.7 mmol/L (0.4-1.9)
--- NOTE | 2022-06-25 11:55 | CT_ITS ---
STUDY: CT ABDOMEN AND PELVIS WITHOUT CONTRAST REASON FOR EXAM: Female, 47 years old. Abdominal pain. History of pancreatic endocrine tumor. Prior ileostomy. RADIATION DOSAGE (If Supplied By Facility): CTDIvol = ( 24.18 ) mGy, DLP = ( 1208.07 ) mGycm TECHNIQUE: Transaxial images were obtained from the dome of the diaphragm to the symphysis pubis without oral contrast, and without intravenous contrast. Sagittal and coronal images were reconstructed. Individualized dose optimization techniques were used for this CT. COMPARISON: Comparison is made with prior study dated 02/05/2022. FINDINGS: Stable mild degree of increased linear markings suggestive of scarring and/or atelectasis. The visualized portions of the heart are within normal limits. There is decreased attenuation of the liver consistent with steatosis. The patient is status post cholecystectomy. Borderline splenomegaly. Normal pancreas. Normal bilateral adrenal glands. Normal right kidney. Normal left kidney. Normal visualized stomach. Normal small intestine. Normal colon. The patient is status post appendectomy. Normal abdominal aorta. Normal inferior vena cava. Normal retroperitoneum. An ileostomy is seen in the right lower quadrant. There is evidence of herniation of nondilated small bowel loops in the right lower quadrant at the ostomy site. The urinary bladder is empty at this time. Normal abdominal wall. Normal osseous structures. CT/Abdomen/Pelvis without Cont IMPRESSION: Right lower quadrant ileostomy with a large parastomal hernia containing multiple nondilated small bowel loops. Fatty infiltration of the liver. Mild hepatomegaly. Borderline splenomegaly. Electronically Signed: Dylan Gross MD at 12:49 EDT ,
[2022-06-25] MEDS: HYDROmorphone 1 MG/ML Syringe 0.5 MG IV (13:16)
[2022-06-25 13:28] VITALS: BP 148/78; PULSE 84; RESP 16; O2SAT 98
[2022-06-25 14:20] VITALS: BP 120/69; PULSE 77; RESP 16; O2SAT 96
== END 2022-06-25 14:20 | disposition home or self-care (01) ==
PROVIDERS: Emergency Provider Emergency Medicine; PCP Family Medicine; Visit Provider Emergency Medicine
DX: R11.2 Nausea with vomiting, unspecified (principal); Z93.2 Ileostomy status; K51.90 Ulcerative colitis, unspecified, without complications; Z68.42 Body mass index [BMI] 45.0-49.9, adult; E11.9 Type 2 diabetes mellitus without complications; R10.9 Unspecified abdominal pain; R19.7 Diarrhea, unspecified; J45.909 Unspecified asthma, uncomplicated; K21.9 Gastro-esophageal reflux disease without esophagitis; I10 Essential (primary) hypertension; Z87.442 Personal history of urinary calculi; L40.9 Psoriasis, unspecified; Z79.899 Other long term (current) drug therapy; Z90.49 Acquired absence of other specified parts of digestive tract; Z87.891 Personal history of nicotine dependence; E66.9 Obesity, unspecified; K43.5 Parastomal hernia without obstruction or gangrene
CPT/HCPCS: 74176; 80053; 81001; 83605; 83690; 85025; 96361; 96374; 96375; 99283; J7030; A4216; J2405

== ENCOUNTER 2022-06-25 23:02 | Observation (INO) | payer OTHER, SELFPAY ==
[2022-06-25 23:03] VITALS: BP 187/113; PULSE 99; RESP 16; TEMP 36.5; O2SAT 95; BMI 49.4
--- NOTE | 2022-06-25 23:40 | EKG12_ITS ---
Test Reason : DYSRHYTHMIA Blood Pressure : / mmHG Vent. Rate : 087 BPM Atrial Rate : 087 BPM P-R Int : 148 ms QRS Dur : 084 ms QT Int : 374 ms P-R-T Axes : 046 -19 040 degrees QTc Int : 450 ms Normal sinus rhythm Nonspecific ST abnormality Abnormal ECG Confirmed by JULIA CARVER, FATIMAH ([id number]), society editor LUCILA FELICIANO ([id number]) on 06/28/2022 9:39:19 AM Referred By: LEROY Confirmed By:FATIMAH DUMONT MD
--- NOTE | 2022-06-25 23:42 | EX.ED.DYSGE1 ---
HPI History of Present Illness Chief Complaint: Abd Pain Informant: patient Onset/Context/Timing Onset: Today Current Severity: Moderate Maximum Severity: Severe Narrative Narrative: Patient presents with a second time today due to upper abdominal pain. This morning she had rather abrupt onset of epigastric abdominal pain with vomiting and increased output in her ostomy. No fever or chills. Work-up here showed a parastomal hernia that she had known about. No other acute findings noted. Patient states that she was able to take some Zofran this afternoon and has not had any further vomiting but still having high output from her ostomy. She presents back secondary to increased pain. She has not taken anything for pain. [facility] Medical History Abnormal bruising Anemia Arthritis Asthma Cancer Diabetes Endocrine tumor Facial paresthesia Facial weakness GERD (gastroesophageal reflux disease) Hernia History of asthma HTN (hypertension) Immunosuppressed status Kidney disease Liver disease Lung disease Meningioma Nephrolithiasis Neuroendocrine tumor of pancreas Psoriasis Severe headache SOB (shortness of breath) Ulcerative colitis Home Medications albuterol sulfate 2.5 mg/3 mL (0.083 %) solution for nebulization 2.5 mg inhalation Q4H PRN PRN Bronchospasm 08/25/13 [History Last Taken Unknown] albuterol sulfate 90 mcg/actuation aerosol inhaler 2 puff inhalation PRN PRN Bronchospasm 08/25/13 [History Last Taken 02/21/16] atenolol 25 mg tablet 25 mg PO DAILY 08/25/13 [History Last Taken 06/16/19 06:00 25 MG] potassium citrate 10 mEq (1,080 mg) tablet,extended release 10 meq PO BID 02/21/16 [History Last Taken 02/21/16] allopurinol 300 mg tablet 300 mg PO DAILY 10/20/17 [History Last Taken Unknown] duloxetine 20 mg capsule,delayed release 60 mg PO DAILY 06/28/20 [History Last Taken Unknown] hyoscyamine sulfate 0.375 mg tablet,extended release,12 hr 0.375 mg PO Q12 02/05/21 [History Last Taken Unknown] diclofenac sodium 50 mg tablet,delayed release 50 mg PO BID 10/16/21 [History Last Taken Unknown] Basaglar KwikPen U-100 Insulin 24 units QHS sugar 02/05/22 [History Last Taken Unknown] Novolog Flexpen U-100 Insulin 02/05/22 [History Last Taken Unknown] fluconazole 150 mg tablet (Diflucan) 150 mg PO Q3D PRN yeast infection 02/06/22 [History Last Taken Unknown] gabapentin 300 mg capsule 300 mg PO BID neuropathy 02/06/22 [History Last Taken Unknown] acetaminophen 500 mg capsule 1,000 mg PO Q8H PRN PRN fever or pain #30 caps 02/07/22 [Rx Last Taken Unknown] dicyclomine 10 mg capsule 10 mg PO ACHS PRN abdominal cramping #20 caps 02/07/22 [Rx Last Taken Unknown] loperamide 2 mg capsule 2 mg PO Q4H PRN PRN Diarrhea #0 caps 02/07/22 [Rx Last Taken Unknown] ondansetron 4 mg disintegrating tablet 4 mg PO Q8H PRN PRN Nausea #10 tabs 06/25/22 [Rx Last Taken Unknown] tramadol 50 mg tablet 50 mg PO Q8H PRN pain #10 tabs 06/26/22 [Rx Last Taken Unknown] Allergy/AdvReac Type Severity Reaction Status Date / Time codeine Allergy Anaphylaxis Verified 06/25/22 10:14 hydrocodone bitartrate Allergy Rash Verified 06/25/22 10:14 [From Vicodin] oxycodone HCl [From Percocet] Allergy Anaphylaxis Verified 06/25/22 10:14 latex AdvReac Mild Rash Verified 06/25/22 10:14 Family History Other Diabetes Heart disease Liver cancer Lung disease Skin cancer Thyroid disorder Surgical History H/O total colectomy History of appendectomy History of cholecystectomy History of lithotripsy Social History Smoking Status: Former smoker alcohol intake: never ROS ROS ED Constitutional Constitutional ED: Denies chills or fever(s) Eyes Eyes: Denies change in vision or discharge from eye(s) ENT ENT ED: Denies discharge from eye(s), rhinorrhea or sore throat Cardiovascular Cardiovascular: Reports palpitations; Denies chest pain Respiratory/Chest Respiratory/Chest: Denies cough or dyspnea Gastrointestinal Gastrointestinal: Reports abdominal pain, diarrhea, nausea and vomiting Genitourinary Genitourinary ED: Denies dysuria Musculoskeletal Musculoskeletal: Denies back pain or extremity pain Integumentary Denies Abrasions or rash Neurologic Neurologic: Denies headache(s) or weakness Allergic/Immunologic Allergic/Immunologic ED: Denies lip swelling or urticaria EXAM Physical Exam Const Vital Signs: 06/25/22 23:03 06/26/22 01:14 06/26/22 02:22 Temperature 97.7 F L Temperature Source Temporal Pulse Rate 99 86 88 Respiratory Rate 16 17 16 Blood Pressure 187/113 H 134/66 H 154/81 H Blood Pressure Mean 137 88 Pulse Ox 95 94 96 Oxygen Delivery Method Room Air Room Air Positive well nourished and well developed General Appearance ED: well developed HEENT Reports normocephalic and head/scalp atraumatic Eyes PERRL and EOMs intact bilaterally Neck supple Chest Wall inspection of chest normal and palpation of chest normal Resp normal respiratory effort and clear to auscultation bilaterally Cardio regular rate and regular rhythm GI GI Narrative: Epigastric abdominal tenderness to palpation. No guarding or rebound. Active bowel sounds are noted throughout. Palpation: soft Extremity normal to inspection Neuro oriented x3 and no sensory deficits noted Sensorium / Orientation: alert Motor Exam: strength 5/5 throughout Psych mental status grossly normal Skin no rashes or lesions noted MDM MDM MDM Narrative Medical decision making narrative: Patient's work-up from the is reviewed. Lab work is repeated. Patient is given IV fluids along with morphine and Zofran. Lab Data Attestation: I reviewed the patient's lab results. Labs: Laboratory Results - last 24 hr 06/26/22 06/26/22 00:06 00:06 WBC 9.1 RBC 5.09 Hgb 14.8 Hct 44.5 MCV 87.4 MCH 29.1 MCHC 33.3 RDW Std Deviation 45.1 H RDW Coeff of Eleuterio 14.3 Plt Count 188 MPV 9.6 Immature Gran % (Auto) 0.500 Neut % (Auto) 76.5 H Lymph % (Auto) 12.6 L [place] % (Auto) 6.5 Eos % (Auto) 3.7 Baso % (Auto) 0.2 Absolute Neuts (auto) 7.0 Absolute Lymphs (auto) 1.15 Nucleated RBC % 0 Sodium 138 Potassium 3.6 Chloride 105 Carbon Dioxide 28.0 Anion Gap 5 BUN 10 Creatinine 0.90 Estim Creat Clear Calc 71.56 Est GFR (MDRD) Af Amer 86 Est GFR (MDRD) Non-Af 71 BUN/Creatinine Ratio 11.2 Glucose 176 H Calcium 8.5 Total Bilirubin 0.70 Direct Bilirubin 0.23 AST 16 ALT 24 Alkaline Phosphatase 112 Troponin I High Sens 4 Total Protein 7.4 Albumin 2.9 L Globulin 4.5 H Lipase 91 EKG Initial EKG: Attestation: I personally reviewed and interpreted this EKG as follows: Interpretation: Sinus Rhythm (Sinus 87 with no acute ischemia.) Treatment and Re-Evaluation Narrative: Patient's blood work is improved when compared to labs drawn 12 hours prior. White count was elevated at 13 and is now normal at 9.1. Hemoglobin is normal at 14.8. Renal function is normal with a BUN of 10 and a creatinine of 0.90. Potassium is normal at 3.6. Lipase is normal. Troponin was obtained and is normal at 4. On repeat evaluation patient states she was still having some pain. She was given a small dose of Dilaudid. On repeat evaluation test results discussed with the patient. Numbers are improved when compared to prior lab draw. She does wish to try to go home. She has Zofran at home and we will treat her with tramadol for pain. She does have a documented allergy to Percocet and Vicodin. She states she has had tramadol in the past without difficulty. Patient is instructed to increase fluids to try to maintain hydration. She is already on an antacid as well as Bentyl to help with abdominal spasms and cramping. Addendum: Patient's IV was removed. We are awaiting her prescriptions to come from pharmacy. Patient develops nausea and vomiting again. Patient has already had 2 visits in 1 day and now has developed symptoms again prior to even leaving the emergency room. I do feel she will require observation. IV line will be replaced and she will be given another dose of pain and nausea medication. Stool studies will be sent. Discharge Plan Triage Chief Complaint: Abd Pain ED Provider: Cherise Uribe Dx/Rx/DC Orders Instructions: ED Gastroenteritis, Viral (Adult) Prescriptions: New tramadol 50 mg tablet 50 mg PO Q8H PRN (Reason: pain) Qty: 10 0RF No Action albuterol sulfate 2.5 MG/3 ML solution for nebulization 2.5 mg inhalation Q4H PRN PRN (Reason: Bronchospasm) Label Comments: Breathing atenolol 25 MG tablet 25 mg PO DAILY Label Comments: Blood Pressure albuterol sulfate 1 INHALER inhaler 2 puff inhalation PRN PRN (Reason: Bronchospasm) Label Comments: Breathing tx potassium citrate 10 MEQ tablet extended release 10 meq PO BID Label Comments: supplement allopurinol 300 MG tablet 300 mg PO DAILY duloxetine 20 mg capsule,delayed release(DR/EC) 60 mg PO DAILY hyoscyamine sulfate 0.375 MG tablet 0.375 mg PO Q12 diclofenac sodium 50 mg Tablet,Delayed Release (Dr/Ec) 50 mg PO BID Basaglar KwikPen U-100 Insulin 24 units QHS Novolog Flexpen U-100 Insulin gabapentin 300 mg Capsule 300 mg PO BID fluconazole [Diflucan] 150 mg tablet 150 mg PO Q3D PRN (Reason: yeast infection) Rx Instructions: may repeat second dose 72 hrs after first dose if symptoms persist pt to start if needed for yeast infections while taking atbx dicyclomine 10 mg Capsule 10 mg PO ACHS PRN (Reason: abdominal cramping) Qty: 20 0RF loperamide 2 mg Capsule 2 mg PO Q4H PRN PRN (Reason: Diarrhea) Qty: 0 0RF acetaminophen 500 mg capsule 1,000 mg PO Q8H PRN PRN (Reason: fever or pain) Qty: 30 0RF ondansetron [ondansetron] 4 mg tablet,disintegrating 4 mg PO Q8H PRN PRN (Reason: Nausea) Qty: 10 0RF Primary Care Provider: Angelica Quezada Referrals: Angelica Quezada MD [Primary Care Provider] - 5-7 Days Disposition Disposition: Acute Care Hospital [facility]
[2022-06-26] VITALS (12 sets, daily range): BP systolic 134–167; BP diastolic 66–96; PULSE 79–104; RESP 16–18; TEMP 36.6–37.4; O2SAT 93–100; BMI 47.3
[2022-06-26 00:12] LABS: Absolute Lymphocyte Count 1.15 X10^3/uL (0.83-4.51); Basophil# 0.02 X10^3/uL; Basophil% 0.2 % (0-1); Eosinophil# 0.34 X10^3/uL; Eosinophils% 3.7 % (0-5); Hematocrit 44.5 % (37-47); Hemoglobin 14.8 g/dL (12.0-15.0); Lymphocyte # 1.15 X10^3/ul (0.83-4.51); Lymphocyte % 12.6 % (19-41); Mean Corp Hgb Conc 33.3 g/dL (32-36); Mean Corpuscular Hgb 29.1 pg (27.0-32.0); Mean Corpuscular Volume 87.4 fL (81-99); Mean Platelet Vol. 9.6 fl (6.2-12.0); Monocyte# 0.59 X10^3/uL; Monocyte% 6.5 % (0-10); NRBC Flagged by Analyzer 0 % (0-5); Neutrophil # 6.98 X10^3/uL (2.7-7.7); Neutrophil % 76.5 % (47-70); Platelet Count 188 K/mm3 (150-450); RBC Distribution Width CV 14.3 % (11.6-14.6); RBC Distribution Width SD 45.1 fl (35.1-43.9); Red Blood Count 5.09 M/mm3 (4.2-5.4); White Blood Count 9.1 K/mm3 (4.4-11.0)
[2022-06-26] MEDS: Ondansetron 4 MG/2 ML Vial IV ×4 (00:16→22:28)
[2022-06-26] MEDS: Morphine 4 MG/ML Syringe IV (00:16)
[2022-06-26 00:39] LABS: AST(SGOT) 16 U/L (15-37); Alanine Aminotransfer ALT/SGPT 24 U/L (13-56); Albumin, Serum 2.9 g/dL (3.2-5.0); Alkaline Phosphatase 112 U/L (45-117); Anion Gap 5 (5-15); BUN 10 mg/dL (7-18); BUN/Creat Ratio 11.2 RATIO (10-20); Bilirubin, Direct 0.23 mg/dL (0.00-0.30); Calcium,Total 8.5 mg/dL (8.5-10.1); Chloride 105 mmol/L (98-107); EST Glomerular Filtration Rate 71 mL/min (>60); Est Glom Filt Rate - Afr Amer 86 mL/min (>60); Estimated Creatinine Clearance 71.56 ml/min; Globulin 4.5 g/dL (2.2-4.2); Glucose 176 mg/dL (74-106); Lipase 91 U/L (73-393); Potassium 3.6 mmol/L (3.5-5.1); Protein, Total 7.4 g/dL (6.4-8.2); Sodium Level 138 mmol/L (136-145); Troponin-I HS 4 pg/mL (3.0-54.0)
[2022-06-26] MEDS: HYDROmorphone 0.5 MG/0.5 ML SYRINGE IV ×4 (01:09→20:41)
[2022-06-26] MEDS: 0.9% Normal Saline 1,000 ML 150 ML IV (03:03)
--- NOTE | 2022-06-26 03:22 | HP.PCM.HOS_ITS ---
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 The pain is at her mid upper abdomen and it radiates to under her left breast and onto her back. She describes her pain as squeezing and pressure. The intensity of her pain is 10 out of 10. The pain was aggravated by eating toast at home. Pain medication given at the emergency department helped with her pain. Associated with her symptoms is nausea and multiple episodes of vomiting. Further she has increased output in her ileostomy. Of note patient lives at home with her and children and none of them has had her presenting symptoms. Of note patient has been at the emergency department 2 times in the past 24 hours. At the first time she was discharged home and instructed to returned if her symptoms worsens. Patient returned a second time because she felt that her symptoms has worsened. At home p.o. Anna camejo was not helping her. On the second visit the plan was to discharge her home but because patient had multiple episodes of vomiting a decision was made to observe patient at the hospital. [facility] Medical History (Updated 06/26/22 @ 04:[address] Rainer Araujo MD) Abnormal bruising Anemia Arthritis Asthma Cancer Diabetes Endocrine tumor Facial paresthesia Facial weakness GERD (gastroesophageal reflux disease) Hernia History of asthma HTN (hypertension) Immunosuppressed status Kidney disease Liver disease Lung disease Meningioma Nephrolithiasis Neuroendocrine tumor of pancreas Psoriasis Severe headache SOB (shortness of breath) Ulcerative colitis Home Medications albuterol sulfate 2.5 mg/3 mL (0.083 %) solution for nebulization 2.5 mg inhalation Q4H PRN PRN Bronchospasm 08/25/13 [History Last Taken Unknown] albuterol sulfate 90 mcg/actuation aerosol inhaler 2 puff inhalation PRN PRN Bronchospasm 08/25/13 [History Last Taken 02/21/16] atenolol 25 mg tablet 25 mg PO DAILY 08/25/13 [History Last Taken 06/16/19 06:00 25 MG] potassium citrate 10 mEq (1,080 mg) tablet,extended release 10 meq PO BID 02/21/16 [History Last Taken 02/21/16] allopurinol 300 mg tablet 300 mg PO DAILY 10/20/17 [History Last Taken Unknown] duloxetine 20 mg capsule,delayed release 60 mg PO DAILY 06/28/20 [History Last Taken Unknown] hyoscyamine sulfate 0.375 mg tablet,extended release,12 hr 0.375 mg PO Q12 02/05/21 [History Last Taken Unknown] diclofenac sodium 50 mg tablet,delayed release 50 mg PO BID 10/16/21 [History Last Taken Unknown] Basaglar KwikPen U-100 Insulin 24 units QHS sugar 02/05/22 [History Last Taken Unknown] Novolog Flexpen U-100 Insulin 02/05/22 [History Last Taken Unknown] fluconazole 150 mg tablet (Diflucan) 150 mg PO Q3D PRN yeast infection 02/06/22 [History Last Taken Unknown] gabapentin 300 mg capsule 300 mg PO BID neuropathy 02/06/22 [History Last Taken Unknown] acetaminophen 500 mg capsule 1,000 mg PO Q8H PRN PRN fever or pain #30 caps 02/07/22 [Rx Last Taken Unknown] dicyclomine 10 mg capsule 10 mg PO ACHS PRN abdominal cramping #20 caps 02/07/22 [Rx Last Taken Unknown] loperamide 2 mg capsule 2 mg PO Q4H PRN PRN Diarrhea #0 caps 02/07/22 [Rx Last Taken Unknown] ondansetron 4 mg disintegrating tablet 4 mg PO Q8H PRN PRN Nausea #10 tabs 06/25/22 [Rx Last Taken Unknown] tramadol 50 mg tablet 50 mg PO Q8H PRN pain #10 tabs 06/26/22 [Rx Last Taken Unknown] Allergy/AdvReac Type Severity Reaction Status Date / Time codeine Allergy Anaphylaxis Verified 06/25/22 10:14 hydrocodone bitartrate Allergy Rash Verified 06/25/22 10:14 [From Vicodin] oxycodone HCl [From Percocet] Allergy Anaphylaxis Verified 06/25/22 10:14 latex AdvReac Mild Rash Verified 06/25/22 10:14 Family History Other Diabetes Heart disease Liver cancer Lung disease Skin cancer Thyroid disorder Surgical History H/O total colectomy History of appendectomy History of cholecystectomy History of lithotripsy Social History Smoking Status: Former smoker alcohol intake: never ROS ROS Narrative Pertinent positives and pertinent negatives as noted in HPI. All other systems were reviewed and are negative Vital Signs Vital Signs Vital Signs: 06/25/22 23:03 06/26/22 01:14 06/26/22 02:22 Temperature 97.7 F L Temperature Source Temporal Pulse Rate 99 86 88 Respiratory Rate 16 17 16 Blood Pressure 187/113 H 134/66 H 154/81 H Blood Pressure Mean 137 88 Pulse Ox 95 94 96 Oxygen Delivery Method Room Air Room Air 06/26/22 03:05 Temperature Temperature Source Pulse Rate 79 Respiratory Rate 18 Blood Pressure 163/96 H Blood Pressure Mean 118 Pulse Ox 93 Oxygen Delivery Method Room Air Weight Weight: 139 kg Body Mass Index (BMI) 49.4 Physical Exam Narrative Physical exam: General: Well-nourished, well-developed. Head: Normocephalic, atraumatic, no tenderness Eyes: Vision is grossly intact. EOMI ENT, no trauma, moist mucous membranes, no rhinorrhea Neck: Nontender, full range of motion, no spinal tenderness. CVS: Regular rate and rhythm. S1-S2 present. No murmur, gallop or rub. Respiratory : clear to auscultation bilaterally, chest wall nontender, no wheezing Abdomen: Ileostomy present. Soft, nondistended, normal bowel sounds. : Deferred Back: Nontender, no CVA tenderness, no midline spinal tenderness. Extremities: Nontender full range of motion, no trauma Skin: Normal color, no trauma, abrasions Neuro: Alert, oriented, cranial nerves II through XII grossly intact. Psychiatry: Normal mood. Normal affect. Not depressed. Not anxious. Results Lab / Micro Data Result Diagrams: 06/26/22 00:06 06/26/22 00:06 Labs: Laboratory Results - last 24 hr 06/26/22 00:06: WBC 9.1, RBC 5.09, Hgb 14.8, Hct 44.5, MCV 87.4, MCH 29.1, MCHC 33.3, RDW Std Deviation 45.1 H, RDW Coeff of Eleuterio 14.3, Plt Count 188, MPV 9.6, Immature Gran % (Auto) 0.500, Neut % (Auto) 76.5 H, Lymph % (Auto) 12.6 L, [place] % (Auto) 6.5, Eos % (Auto) 3.7, Baso % (Auto) 0.2, Absolute Neuts (auto) 7.0, A bsolute Lymphs (auto) 1.15, Nucleated RBC % 0 06/26/22 00:06: Sodium 138, Potassium 3.6, Chloride 105, Carbon Dioxide 28.0, Anion Gap 5, BUN 10, Creatinine 0.90, Estim Creat Clear Calc 71.56, Est GFR (MDRD) Af Amer 86, Est GFR (MDRD) Non-Af 71, BUN/Creatinine Ratio 11.2, Glucose 176 H, Calcium 8.5, Total Bilirubin 0.70, Direct Bilirubin 0.23, AST 16, ALT 24, Alkaline Phosphatase 112, Troponin I High Sens 4, Total Protein 7.4, Albumin 2.9 L, Globulin 4.5 H, Lipase 91 Assessment & Plan Assessment/Plan (1) Acute gastroenteritis: (2) Diabetes: (3) HTN (hypertension): PLAN: Plan Acute gastroenteritis Impression of abdomen and pelvis CT obtained on 06/25/2022: Right lower quadrant ileostomy with a large parastomal hernia containing multiple nondilated small bowel loops. Fatty infiltration of the liver.? Mild hepatomegaly. Borderline splenomegaly Abdomen and pelvis CT above was visualized and independently interpreted; previous abdomen and pelvis CT (02/05/2022) was also visualized and I agree with radiology interpretation above. CBC on 06/26/2022 showed white count of 9.1; and on 06/25/2022 showed white count of 13.9. Alkaline phosphatase on 06/25/2022 was 124 and it improved to 112 on 06/26/2022. Supportive treatment with Dilaudid IV as needed. Normal saline with potassium ordered. N.p.o. except ice chips which patient can tolerate. Stool studies was obtained in the emergency department, follow. Diabetes mellitus Patient with hyperglycemia on presentation Accu-Cheks with Correction scale insulin ordered. Hypertension Blood pressure is not within goal In the setting of patient being n.p.o. hold home blood pressure medications. As needed hydralazine ordered. Trend blood pressure and adjust blood pressure medications. DVT prophylaxis: Subcutaneous Lovenox ordered Charges/Coding Visit Charges OBSV E&M: 96090 Initial observation care L3
[2022-06-26] MEDS: KCL 20MEQ in 0.9% NS 20 MEQ/1,000 ML IV.SOLN. 100 MEQ IV ×2 (04:36→14:55)
[2022-06-26] MEDS: proCHLORPERazine 10 MG/2 ML Vial 5 MG IV (04:38)
[2022-06-26] MEDS: Insulin Lispro 100 UNIT/ML INSULN.PEN SC ×2 (05:28→18:03)
[2022-06-26 05:45] LABS: Bedside Glucose 217 mg/dL (74-106)
[2022-06-26 06:00] LABS: Absolute Lymphocyte Count 0.91 X10^3/uL (0.83-4.51); Absolute Neutrophil Count 7.2 X10^3/uL (2.0-7.7); Basophil# 0.01 X10^3/uL; Basophil% 0.1 % (0-1); Eosinophil# 0.23 X10^3/uL; Eosinophils% 2.6 % (0-5); Hematocrit 42.8 % (37-47); Lymphocyte # 0.91 X10^3/ul (0.83-4.51); Lymphocyte % 10.2 % (19-41); Mean Corp Hgb Conc 32.7 g/dL (32-36); Mean Corpuscular Hgb 29.3 pg (27.0-32.0); Mean Corpuscular Volume 89.5 fL (81-99); Mean Platelet Vol. 9.8 fl (6.2-12.0); Monocyte# 0.56 X10^3/uL; Monocyte% 6.3 % (0-10); NRBC Flagged by Analyzer 0 % (0-5); Neutrophil # 7.18 X10^3/uL (2.7-7.7); Neutrophil % 80.2 % (47-70); Platelet Count 181 K/mm3 (150-450); RBC Distribution Width CV 14.2 % (11.6-14.6); Red Blood Count 4.78 M/mm3 (4.2-5.4); White Blood Count 8.9 K/mm3 (4.4-11.0)
[2022-06-26 06:31] LABS: Anion Gap 6 (5-15); BUN 9 mg/dL (7-18); Calcium,Total 7.9 mg/dL (8.5-10.1); Chloride 106 mmol/L (98-107); Creatinine, Serum 0.75 mg/dL (0.55-1.02); EST Glomerular Filtration Rate 87 mL/min (>60); Est Glom Filt Rate - Afr Amer 106 mL/min (>60); Estimated Creatinine Clearance 85.88 ml/min; Glucose 206 mg/dL (74-106); Magnesium 1.8 mg/dL (1.6-2.6); Potassium 3.9 mmol/L (3.5-5.1); Sodium Level 137 mmol/L (136-145)
--- NOTE | 2022-06-26 10:47 | PN.HOSP_ITS ---
Subjective Subjective Patient seen and examined. Reports ongoing diarrhea with nausea. No emesis. Denies fever, chills. Reports abdominal pain which wraps around her left side. Objective Data Objective Data Vital Signs: Vital Signs Temp Pulse Resp BP Pulse Ox O2 Del Method O2 Flow Rate 98.1 F 82 18 154/86 H 96 Nasal Cannula 2 06/26/22 08:21 06/26/22 08:21 06/26/22 08:21 06/26/22 08:21 06/26/22 09:43 06/26/22 09:43 06/26/22 09:43 Oxygen Flow Rate (L/min) 2 Oxygen Delivery Method Nasal Cannula Weight: 294 lb 8.601 oz Body Mass Index (BMI) 47.3 Intake & Output: Intake and Output for Last 24 Hours 06/24/22 06/25/22 06/26/22 23:59 23:59 23:59 Intake Total 882.5 / 882.5 Output Total 50 / 50 Balance 832.5 / 832.5 Lab / Micro Data Result Diagrams: 06/26/22 05:36 06/26/22 05:36 Labs: Laboratory Results - last 24 hr 06/26/22 00:06: WBC 9.1, RBC 5.09, Hgb 14.8, Hct 44.5, MCV 87.4, MCH 29.1, MCHC 33.3, RDW Std Deviation 45.1 H, RDW Coeff of Eleuterio 14.3, Plt Count 188, MPV 9.6, Immature Gran % (Auto) 0.500, Neut % (Auto) 76.5 H, Lymph % (Auto) 12.6 L, [place] % (Auto) 6.5, Eos % (Auto) 3.7, Baso % (Auto) 0.2, Absolute Neuts (auto) 7.0, Absolute Lymphs (auto) 1.15, Nucleated RBC % 0 06/26/22 00:06: Sodium 138, Potassium 3.6, Chloride 105, Carbon Dioxide 28.0, Anion Gap 5, BUN 10, Creatinine 0.90, Estim Creat Clear Calc 71.56, Est GFR (MDRD) Af Amer 86, Est GFR (MDRD) Non-Af 71, BUN/Creatinine Ratio 11.2, Glucose 176 H, Calcium 8.5, Total Bilirubin 0.70, Direct Bilirubin 0.23, AST 16, ALT 24, Alkaline Phosphatase 112, Troponin I High Sens 4, Total Protein 7.4, Albumin 2.9 L, Globulin 4.5 H, Lipase 91 06/26/22 05:24: POC Glucose 217 H 06/26/22 05:36: Sodium 137, Potassium 3.9, Chloride 106, Carbon Dioxide 25.0, Anion Gap 6, BUN 9, Creatinine 0.75, Estim Creat Clear Calc 85.88, Est GFR (MDRD) Af Amer 106, Est GFR (MDRD) Non-Af 87, BUN/Creatinine Ratio 12.0, Glucose 206 H, Calcium 7.9 L, Magnesium 1.8 06/26/22 05:36: WBC 8.9, RBC 4.78, Hgb 14.0, Hct 42.8, MCV 89.5, MCH 29.3, MCHC 32.7, RDW Std Deviation 46.0 H, RDW Coeff of Eleuterio 14.2, Plt Count 181, MPV 9.8, Immature Gran % (Auto) 0.600, Neut % (Auto) 80.2 H, Lymph % (Auto) 10.2 L, [place] % (Auto) 6.3, Eos % (Auto) 2.6, Baso % (Auto) 0.1, Absolute Neuts (auto) 7.2, Absolute Lymphs (auto) 0.91, Nucleated RBC % 0 Micro: Microbiology 06/26/22 03:57 Stool Stool Lactoferrin - Final Physical Exam Const alert and oriented x3 Constitutional Narrative: Ill-appearing. Nutritional Appearance: obese HEENT normocephalic Mouth: dry mucous membranes Eyes PERRL, EOMs intact bilaterally and conjunctivae normal Neck no lymphadenopathy Resp clear to auscultation bilaterally Auscultation: diminished lung sounds Cardio regular rate, regular rhythm and no murmurs Peripheral Pulses: pulses 2+ throughout GI non-distended GI Narrative: Colostomy in place Auscultation: hyperactive bowel sounds Palpation: tender Extremity normal to inspection Skin no rashes or lesions noted Lesions: no lesions Rashes: no rashes Trauma: no lacerations or abrasions Neuro CN's II-XII intact bilaterally, no focal motor deficits, no sensory deficits noted and deep tendon reflexes 2+ bilaterally Psych mental status grossly normal and affect normal Assessment & Plan Assessment/Plan (1) Nausea vomiting and diarrhea: (2) Acute gastroenteritis: PLAN: Plan 1. Intractable nausea, vomiting, diarrhea-suspect acute gastroenteritis. Stool studies pending. If stool studies negative, will begin Imodium. IV fluids. As needed antiemetics. N.p.o. for now. Advance diet when symptomatically improving. CT of abdomen and pelvis on admission with right lower quadrant ileostomy with large parastomal hernia containing multiple nondilated small bowel loops. Fatty infiltration of the liver. Borderline splenomegaly. 2. Type 2 diabetes mellitus-oral regimen on hold. Accu-Cheks with sliding scale insulin. 3. Hypertension-continue atenolol. As needed hydralazine. 4. History of recurrent kidney stones-on allopurinol. 5. History of ulcerative colitis status ileostomy DVT prophylaxis-Lovenox subcu This patient was seen by SHELLY Donald under the supervision of Dr. Lerner. Time spent examining patient, reviewing data and subsequent management of care: 15 minutes
[2022-06-26] MEDS: Enoxaparin 40 MG/0.4 ML Syringe SC ×2 (10:59→22:28)
[2022-06-26 12:40] LABS: Bedside Glucose 141 mg/dL (74-106)
[2022-06-26] MEDS: Atenolol 25 MG Tablet PO (15:47)
[2022-06-26 18:25] LABS: Bedside Glucose 198 mg/dL (74-106)
[2022-06-27 00:24] VITALS: BP 129/77; PULSE 87; RESP 18; TEMP 36.6; O2SAT 98
[2022-06-27] MEDS: KCL 20MEQ in 0.9% NS 20 MEQ/1,000 ML IV.SOLN. 100 MEQ IV (00:32)
[2022-06-27 00:56] LABS: Bedside Glucose 122 mg/dL (74-106)
[2022-06-27 05:55] VITALS: BP 135/74; PULSE 81; RESP 18; TEMP 36.6; O2SAT 93
[2022-06-27 06:08] LABS: Absolute Lymphocyte Count 2.21 X10^3/uL (0.83-4.51); Absolute Neutrophil Count 4.7 X10^3/uL (2.0-7.7); Basophil# 0.01 X10^3/uL; Basophil% 0.1 % (0-1); Eosinophil# 0.34 X10^3/uL; Eosinophils% 4.4 % (0-5); Hemoglobin 14.2 g/dL (12.0-15.0); Lymphocyte # 2.21 X10^3/ul (0.83-4.51); Lymphocyte % 28.3 % (19-41); Mean Corp Hgb Conc 32.3 g/dL (32-36); Mean Corpuscular Volume 89.8 fL (81-99); Mean Platelet Vol. 9.8 fl (6.2-12.0); Monocyte# 0.53 X10^3/uL; Monocyte% 6.8 % (0-10); NRBC Flagged by Analyzer 0 % (0-5); Neutrophil # 4.68 X10^3/uL (2.7-7.7); Platelet Count 204 K/mm3 (150-450); RBC Distribution Width CV 14.6 % (11.6-14.6); RBC Distribution Width SD 47.2 fl (35.1-43.9); White Blood Count 7.8 K/mm3 (4.4-11.0)
[2022-06-27 06:26] LABS: Bedside Glucose 146 mg/dL (74-106)
[2022-06-27 06:34] LABS: Anion Gap 6 (5-15); BUN 5 mg/dL (7-18); BUN/Creat Ratio 5.9 RATIO (10-20); Calcium,Total 8.1 mg/dL (8.5-10.1); Chloride 107 mmol/L (98-107); Creatinine, Serum 0.85 mg/dL (0.55-1.02); EST Glomerular Filtration Rate 76 mL/min (>60); Est Glom Filt Rate - Afr Amer 92 mL/min (>60); Estimated Creatinine Clearance 75.77 ml/min; Glucose 126 mg/dL (74-106); Potassium 3.5 mmol/L (3.5-5.1); Sodium Level 140 mmol/L (136-145)
[2022-06-27 07:21] VITALS: O2SAT 93
--- NOTE | 2022-06-27 09:05 | DCINST_ITS ---
Discharge Instructions Diet Discharge Diet: [place] diet and Carb Control Diet Activity Discharge Activity: Return to Normal Activity Dressing / Incision Call your doctor if you observe: Fever of 101 or Higher, Shortness of breath, Dizziness, Fainting spells, Swelling in the ankles, Chest pain and Increased palpitations (irregular heartbeat) Follow Up Care Test Results: Test results from this visit will be discussed in further detail at your follow- up appointment, if applicable. Discharge Plan Admission Admit Date/Time: 06/26/22 03:08 Attending Provider: Rod Lerner Primary Care Provider: Angelica Quezada Consulting Providers: Rainer Araujo Instructions Patient Instructions: ED Gastroenteritis, Viral (Adult) Discharge Orders/Prescriptions Prescriptions: New tramadol 50 mg tablet 50 mg PO Q8H PRN (Reason: pain) Qty: 10 0RF Continued albuterol sulfate 2.5 MG/3 ML solution for nebulization 2.5 mg inhalation Q4H PRN PRN (Reason: Bronchospasm) Label Comments: Breathing atenolol 25 MG tablet 25 mg PO DAILY Label Comments: Blood Pressure albuterol sulfate 1 INHALER inhaler 2 puff inhalation PRN PRN (Reason: Bronchospasm) Label Comments: Breathing tx potassium citrate 10 MEQ tablet extended release 10 meq PO BID Label Comments: supplement allopurinol 300 MG tablet 300 mg PO DAILY duloxetine 20 mg capsule,delayed release(DR/EC) 60 mg PO DAILY hyoscyamine sulfate 0.375 MG tablet 0.375 mg PO Q12 diclofenac sodium 50 mg Tablet,Delayed Release (Dr/Ec) 50 mg PO BID Basaglar KwikPen U-100 Insulin 24 units QHS Novolog Flexpen U-100 Insulin See Protocol PO.IVFORM ACHS Protocol: 6. Sliding Scale Insulin Custom Condition: mg/dl range Dose/Route: Number of Units Protocol Text: Custom Sliding Scale fluconazole [Diflucan] 150 mg tablet 150 mg PO Q3D PRN (Reason: yeast infection) Rx Instructions: may repeat second dose 72 hrs after first dose if symptoms persist pt to start if needed for yeast infections while taking atbx dicyclomine 10 mg Capsule 10 mg PO ACHS PRN (Reason: abdominal cramping) Qty: 20 0RF loperamide 2 mg Capsule 2 mg PO Q4H PRN PRN (Reason: Diarrhea) Qty: 0 0RF acetaminophen 500 mg capsule 1,000 mg PO Q8H PRN PRN (Reason: fever or pain) Qty: 30 0RF ondansetron 4 mg tablet,disintegrating 4 mg PO Q8H PRN PRN (Reason: Nausea) Qty: 10 0RF pioglitazone 15 mg tablet 15 mg PO DAILY leflunomide 20 mg tablet 20 mg PO DAILY hydroxychloroquine 200 mg tablet 200 mg PO DAILY Referrals / Follow Up: Angelica Quezada MD [Primary Care Provider] - 5-7 Days Disposition Disposition (needs filled in before D/C Order can be placed): Home, Self Care
--- NOTE | 2022-06-27 09:08 | PCM.DC.SUM ---
Providers Date of Admission: 06/26/22 Primary Care Physician: Dr. Angelica Quezada MD Reason For Visit: ACUTE GASTROENTERITIS Diagnosis Discharge Diagnosis (1) Nausea vomiting and diarrhea: Status: Acute Code(s): R11.2 - Nausea with vomiting, unspecified; R19.7 - Diarrhea, unspecified (2) Acute gastroenteritis: Status: Acute Code(s): K52.9 - Noninfective gastroenteritis and colitis, unspecified Plan 1. Intractable nausea, vomiting, diarrhea-suspect acute gastroenteritis. Stool studies pending. If stool studies negative, will begin Imodium. IV fluids. As needed antiemetics. N.p.o. for now. Advance diet when symptomatically improving. CT of abdomen and pelvis on admission with right lower quadrant ileostomy with large parastomal hernia containing multiple nondilated small bowel loops. Fatty infiltration of the liver. Borderline splenomegaly. 2. Type 2 diabetes mellitus-oral regimen on hold. Accu-Cheks with sliding scale insulin. 3. Hypertension-continue atenolol. As needed hydralazine. 4. History of recurrent kidney stones-on allopurinol. 5. History of ulcerative colitis status ileostomy DVT prophylaxis-Lovenox subcu This patient was seen by SHELLY Donadl under the supervision of Dr. Lerner. Time spent examining patient, reviewing data and subsequent management of care: 15 minutes Medications at Discharge Home Medications albuterol sulfate 2.5 mg/3 mL (0.083 %) solution for nebulization 2.5 mg inhalation Q4H PRN PRN Bronchospasm 08/25/13 albuterol sulfate 90 mcg/actuation aerosol inhaler 2 puff inhalation PRN PRN Bronchospasm 08/25/13 atenolol 25 mg tablet 25 mg PO DAILY 08/25/13 potassium citrate 10 mEq (1,080 mg) tablet,extended release 10 meq PO BID 02/21/16 allopurinol 300 mg tablet 300 mg PO DAILY 10/20/17 duloxetine 20 mg capsule,delayed release 60 mg PO DAILY 06/28/20 hyoscyamine sulfate 0.375 mg tablet,extended release,12 hr 0.375 mg PO Q12 02/05/21 diclofenac sodium 50 mg tablet,delayed release 50 mg PO BID 10/16/21 Basaglar KwikPen U-100 Insulin 24 units QHS sugar 02/05/22 Novolog Flexpen U-100 Insulin See Protocol PO.IVFORM ACHS 02/05/22 fluconazole 150 mg tablet (Diflucan) 150 mg PO Q3D PRN yeast infection 02/06/22 acetaminophen 500 mg capsule 1,000 mg PO Q8H PRN PRN fever or pain #30 caps 02/07/22 dicyclomine 10 mg capsule 10 mg PO ACHS PRN abdominal cramping #20 caps 02/07/22 loperamide 2 mg capsule 2 mg PO Q4H PRN PRN Diarrhea #0 caps 02/07/22 ondansetron 4 mg disintegrating tablet 4 mg PO Q8H PRN PRN Nausea #10 tabs 06/25/22 hydroxychloroquine 200 mg tablet 200 mg PO DAILY 06/26/22 leflunomide 20 mg tablet 20 mg PO DAILY 06/26/22 pioglitazone 15 mg tablet 15 mg PO DAILY 06/26/22 tramadol 50 mg tablet 50 mg PO Q8H PRN pain #10 tabs 06/26/22 Hospital Course Operations None Procedures None Summary of Care Provided Minutes Spent on Discharge: 38 Hospital Course: Per HPI: VENKAT BECERRA, is a 47 F with a significant history of former smoker; 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 The pain is at her mid upper abdomen and it radiates to under her left breast and onto her back.? She describes her pain as squeezing and pressure.? The intensity of her pain is 10 out of 10.? The pain was aggravated by eating toast at home.? Pain medication given at the emergency department helped with her pain. Associated with her symptoms is nausea and multiple episodes of vomiting.? Further she has increased output in her ileostomy. Of note patient lives at home with her and children and none of them has had her presenting symptoms.? Of note patient has been at the emergency department 2 times in the past 24 hours.? At the first time she was discharged home and instructed to returned if her symptoms worsens.? Patient returned a second time because she felt that her symptoms has worsened.? At home p.o. Zofran was not helping her. On the second visit the plan was to discharge her home but because patient had multiple episodes of vomiting a decision was made to observe patient at the hospital. Hospital Course: 1. Intractable nausea and vomiting with diarrhea consistent with an acute gastroenteritis?47-year-old female presented to the hospital with recurrent nausea and vomiting. She was not dehydrated and had no lab abnormalities however she was struggling to keep anything down and she does have an ileostomy secondary to ulcerative colitis. She is doing well today and wants to go home. I discussed with her that in terms of p.o. intake all she really needs to be able to hold down is liquids at this time which she says she is able to. I discussed with her the plan for discharge and she expressed understanding the risk benefits going home and would like to go home today. C. difficile and enteric pathogen panel were negative so recommend that she follow-up with her PCP in 3 to 5 days. She was given Zofran on her previous ER evaluation so she can discontinue this at home. I did have a prolonged discussion with her on dietary intake and how she should slowly advance her diet if she starts to feel better. 2. Type 2 diabetes, hypertension, recurrent kidney stones, history of ulcerative colitis all chronic medical conditions which complicate her care. Her home medications were continued where appropriate Physical Exam Narrative General: Alert, Oriented x3, Cooperative, No apparent distress HEENT: Atraumatic, PERRLA, EOMI, Normocephalic Oral: Moist Mucosa Neck: Supple, No JVD Lungs: Clear to auscultation, Normal air movement, No rhonchi, No wheeze, No rales Cardiovascular: Regular rate, Regular Rhythm, Normal S1, Normal S2, No murmurs Abdomen: Soft, Non Tender, Non-Distended, No Hepato-splenomegaly, ileostomy present Extremities: No edema, Capillary Refill Less than 3 Seconds Skin: No rashes, No breakdown Musculoskeletal: No Tenderness to Palpation of Joints or Extremities Neurological: Cranial nerves II-XII grossly intact, Motor Exam 5/5 strength throughout, Sensory exam intact to light touch and pain Psych/Mental Status: Normal Affect, Appropriate Weight / BMI Weight Weight: 294 lb 8.601 oz Body Mass Index (BMI) 47.3 ABG / Lab / Microbiology Data Result Diagrams: 06/27/22 05:23 06/27/22 05:23 Laboratory: Laboratory Results - last 24 hr 06/26/22 12:19: POC Glucose 141 H 06/26/22 18:01: POC Glucose 198 H 06/27/22 00:31: POC Glucose 122 H 06/27/22 05:23: WBC 7.8, RBC 4.90, Hgb 14.2, Hct 44.0, MCV 89.8, MCH 29.0, MCHC 32.3, RDW Std Deviation 47.2 H, RDW Coeff of Eleuterio 14.6, Plt Count 204, MPV 9.8, Immature Gran % (Auto) 0.400, Neut % (Auto) 60.0, Lymph % (Auto) 28.3, [place] % (Auto) 6.8, Eos % (Auto) 4.4, Baso % (Auto) 0.1, Absolute Neuts (auto) 4.7, Absolute Lymphs (auto) 2.21, Nucleated RBC % 0 06/27/22 05:23: Sodium 140, Potassium 3.5, Chloride 107, Carbon Dioxide 27.0, Anion Gap 6, BUN 5 L, Creatinine 0.85, Estim Creat Clear Calc 75.77, Est GFR (MDRD) Af Amer 92, Est GFR (MDRD) Non-Af 76, BUN/Creatinine Ratio 5.9 L, Glucose 126 H, Calcium 8.1 L 06/27/22 06:03: POC Glucose 146 H Microbiology: Microbiology 06/26/22 03:57 Stool Stool Lactoferrin - Final 06/26/22 03:57 Stool Enteric Bacteriology - Final 06/26/22 03:57 Stool C. difficile DNA Amplification - Final D/C Instructions Discharge Diet: [place] diet and Carb Control Diet Call your doctor if you observe: Fever of 101 or Higher, Shortness of breath, Dizziness, Fainting spells, Swelling in the ankles, Chest pain and Increased palpitations (irregular heartbeat) Meaningful Use Info Meaningful Use Diagnoses (Choose all that apply): None applicable Discharge Plan Admission Admit Date/Time: 06/26/22 03:08 Attending Provider: Rod Lerner Primary Care Provider: Angelica Quezada Consulting Providers: Rainer Araujo Instructions Patient Instructions: ED Gastroenteritis, Viral (Adult) Discharge Orders/Prescriptions Prescriptions: New tramadol 50 mg tablet 50 mg PO Q8H PRN (Reason: pain) Qty: 10 0RF Continued albuterol sulfate 2.5 MG/3 ML solution for nebulization 2.5 mg inhalation Q4H PRN PRN (Reason: Bronchospasm) Label Comments: Breathing atenolol 25 MG tablet 25 mg PO DAILY Label Comments: Blood Pressure albuterol sulfate 1 INHALER inhaler 2 puff inhalation PRN PRN (Reason: Bronchospasm) Label Comments: Breathing tx potassium citrate 10 MEQ tablet extended release 10 meq PO BID Label Comments: supplement allopurinol 300 MG tablet 300 mg PO DAILY duloxetine 20 mg capsule,delayed release(DR/EC) 60 mg PO DAILY hyoscyamine sulfate 0.375 MG tablet 0.375 mg PO Q12 diclofenac sodium 50 mg Tablet,Delayed Release (Dr/Ec) 50 mg PO BID Basaglar KwikPen U-100 Insulin 24 units QHS Novolog Flexpen U-100 Insulin See Protocol PO.IVFORM ACHS Protocol: 6. Sliding Scale Insulin Custom Condition: mg/dl range Dose/Route: Number of Units Protocol Text: Custom Sliding Scale fluconazole [Diflucan] 150 mg tablet 150 mg PO Q3D PRN (Reason: yeast infection) Rx Instructions: may repeat second dose 72 hrs after first dose if symptoms persist pt to start if needed for yeast infections while taking atbx dicyclomine 10 mg Capsule 10 mg PO ACHS PRN (Reason: abdominal cramping) Qty: 20 0RF loperamide 2 mg Capsule 2 mg PO Q4H PRN PRN (Reason: Diarrhea) Qty: 0 0RF acetaminophen 500 mg capsule 1,000 mg PO Q8H PRN PRN (Reason: fever or pain) Qty: 30 0RF ondansetron 4 mg tablet,disintegrating 4 mg PO Q8H PRN PRN (Reason: Nausea) Qty: 10 0RF pioglitazone 15 mg tablet 15 mg PO DAILY leflunomide 20 mg tablet 20 mg PO DAILY hydroxychloroquine 200 mg tablet 200 mg PO DAILY Referrals / Follow Up: Angelica Quezada MD [Primary Care Provider] - 5-7 Days Disposition Disposition (needs filled in before D/C Order can be placed): Home, Self Care Charges/Coding Visit Charges OBSV E&M: 63176 Observation care discharge
[2022-06-27] MEDS: Leflunomide 10 MG TABLET 20 MG PO (10:39)
[2022-06-27] MEDS: Atenolol 25 MG Tablet PO (10:39)
[2022-06-27] MEDS: Allopurinol 300 MG Tablet PO (10:39)
[2022-06-27] MEDS: Hydroxychloroquine 200 MG Tablet PO (10:40)
--- NOTE | 2022-06-27 10:47 | PHA.DC.MC ---
Pharmacy Service has performed discharge medication reconciliation and counseling for this patient. The patient was counseled on the following discharge medications and changes in medications for homegoing were reviewed. 1. TRAMADOL The Reason for Use, instructions for use, and potential side effects were reviewed for all new medications. The patient's questions regarding all of their medications were answered. The patient was able to verbally demonstrate an understanding of their discharge medications. Home Medications albuterol sulfate 2.5 mg/3 mL (0.083 %) solution for nebulization 2.5 mg inhalation Q4H PRN PRN Bronchospasm 08/25/13 atenolol 25 mg tablet 25 mg PO DAILY 08/25/13 potassium citrate 10 mEq (1,080 mg) tablet,extended release 10 meq PO BID 02/21/16 allopurinol 300 mg tablet 300 mg PO DAILY 10/20/17 duloxetine 20 mg capsule,delayed release 60 mg PO DAILY 06/28/20 hyoscyamine sulfate 0.375 mg tablet,extended release,12 hr 0.375 mg PO Q12 02/05/21 diclofenac sodium 50 mg tablet,delayed release 50 mg PO BID 10/16/21 Basaglar KwikPen U-100 Insulin 24 units QHS sugar 02/05/22 Novolog Flexpen U-100 Insulin See Protocol PO.IVFORM ACHS 02/05/22 fluconazole 150 mg tablet (Diflucan) 150 mg PO Q3D PRN yeast infection 02/06/22 acetaminophen 500 mg capsule 1,000 mg PO Q8H PRN PRN fever or pain #30 caps 02/07/22 dicyclomine 10 mg capsule 10 mg PO ACHS PRN abdominal cramping #20 caps 02/07/22 loperamide 2 mg capsule 2 mg PO Q4H PRN PRN Diarrhea #0 caps 02/07/22 ondansetron 4 mg disintegrating tablet 4 mg PO Q8H PRN PRN Nausea #10 tabs 06/25/22 hydroxychloroquine 200 mg tablet 200 mg PO DAILY 06/26/22 leflunomide 20 mg tablet 20 mg PO DAILY 06/26/22 pioglitazone 15 mg tablet 15 mg PO DAILY 06/26/22 tramadol 50 mg tablet 50 mg PO Q8H PRN pain #10 tabs 06/26/22 The patient's discharge medication list was reviewed for discrepancies and discrepancies were resolved.
[2022-06-27 10:49] VITALS: BP 150/81; PULSE 80; RESP 17; TEMP 36.6; O2SAT 95
== END 2022-06-27 11:10 | disposition home or self-care (01) ==
LOC: ED 06-26 02:57 → MS3 06-26 05:17
PROVIDERS: Nurse Practitioner Family; Admitting Provider Hospitalist; Emergency Provider Emergency Medicine; PCP Family Medicine; Visit Provider Family Medicine
DX: K52.9 Noninfective gastroenteritis and colitis, unspecified (principal); Z93.2 Ileostomy status; K51.90 Ulcerative colitis, unspecified, without complications; C7A.8 Other malignant neuroendocrine tumors; E11.9 Type 2 diabetes mellitus without complications; Z79.4 Long term (current) use of insulin; Z87.891 Personal history of nicotine dependence; I10 Essential (primary) hypertension; J45.909 Unspecified asthma, uncomplicated; M19.90 Unspecified osteoarthritis, unspecified site; K21.9 Gastro-esophageal reflux disease without esophagitis; L40.9 Psoriasis, unspecified; Z79.899 Other long term (current) drug therapy; K76.0 Fatty (change of) liver, not elsewhere classified
CPT/HCPCS: 36415; 80048; 80076; 82962; 83630; 83690; 83735; 84484; 85025; 87177; 87209; 87493; 87506; 93005; 96361; 96365; 96372; 96375; 96376; 99218; 99285; J7040; A4216; G0378; J2405

== ENCOUNTER 2022-07-30 21:47 | Emergency (ER) | payer OTHER, SELFPAY ==
[2022-07-30 21:47] VITALS: BP 190/110; PULSE 105; RESP 18; TEMP 36.6; O2SAT 94; BMI 45.7
--- NOTE | 2022-07-30 23:02 | EDS_ITS ---
HPI History of Present Illness Chief Complaint: Nausea/Vomiting Narrative Narrative: Patient is a 47-year-old female with past medical history of hypertension diabetes ulcerative colitis requiring colectomy with ileostomy placement. She states starting Friday she developed generalized abdominal discomfort with liquidy stool out of her ileostomy and also developed bouts of nausea and vomiting. She denies any known sick contacts. She denies any recent travel surgery antibiotic use or exposure to livestock. She states that she is not been able to control her symptoms at home and she is concerned about dehydration and secondary to this comes in for evaluation [facility] Medical History Abnormal bruising Anemia Anxiety Arthritis Asthma Cancer COPD (chronic obstructive pulmonary disease) CPAP (continuous positive airway pressure) dependence Diabetes Endocrine tumor Facial paresthesia Facial weakness Former smoker GERD (gastroesophageal reflux disease) Hernia History of asthma HTN (hypertension) Immunosuppressed status Kidney disease Liver disease Lung disease Meningioma Nephrolithiasis Neuroendocrine tumor of pancreas Pancreatitis Psoriasis Severe headache SOB (shortness of breath) Ulcerative colitis Home Medications albuterol sulfate 2.5 mg/3 mL (0.083 %) solution for nebulization 2.5 mg inhalation Q4H PRN PRN Bronchospasm 08/25/13 [History Last Taken Unknown] albuterol sulfate 90 mcg/actuation aerosol inhaler 2 puff inhalation PRN PRN Bronchospasm 08/25/13 [History Last Taken 02/21/16] atenolol 25 mg tablet 25 mg PO DAILY 08/25/13 [History Last Taken 06/16/19 06:00 25 MG] potassium citrate 10 mEq (1,080 mg) tablet,extended release 10 meq PO BID 02/21/16 [History Last Taken 02/21/16] allopurinol 300 mg tablet 300 mg PO DAILY 10/20/17 [History Last Taken Unknown] duloxetine 20 mg capsule,delayed release 60 mg PO DAILY 06/28/20 [History Last Taken Unknown] hyoscyamine sulfate 0.375 mg tablet,extended release,12 hr 0.375 mg PO Q12 02/05/21 [History Last Taken Unknown] diclofenac sodium 50 mg tablet,delayed release 50 mg PO BID 10/16/21 [History Last Taken Unknown] Basaglar KwikPen U-100 Insulin 24 units QHS sugar 02/05/22 [History Last Taken Unknown] Novolog Flexpen U-100 Insulin See Protocol PO.IVFORM ACHS 02/05/22 [History Last Taken Unknown] fluconazole 150 mg tablet (Diflucan) 150 mg PO Q3D PRN yeast infection 02/06/22 [History Last Taken Unknown] acetaminophen 500 mg capsule 1,000 mg PO Q8H PRN PRN fever or pain #30 caps 02/07/22 [Rx Last Taken Unknown] dicyclomine 10 mg capsule 10 mg PO ACHS PRN abdominal cramping #20 caps 02/07/22 [Rx Last Taken Unknown] loperamide 2 mg capsule 2 mg PO Q4H PRN PRN Diarrhea #0 caps 02/07/22 [Rx Last Taken Unknown] ondansetron 4 mg disintegrating tablet 4 mg PO Q8H PRN PRN Nausea #10 tabs 06/25/22 [Rx Last Taken Unknown] hydroxychloroquine 200 mg tablet 200 mg PO DAILY 06/26/22 [History Last Taken Unknown] leflunomide 20 mg tablet 20 mg PO DAILY 06/26/22 [History Last Taken Unknown] pioglitazone 15 mg tablet 15 mg PO DAILY 06/26/22 [History Last Taken Unknown] tramadol 50 mg tablet 50 mg PO Q8H PRN pain #10 tabs 06/26/22 [Rx Last Taken Unknown] diphenoxylate-atropine 2.5 mg-0.025 mg tablet (Lomotil) 1 tab PO 4X/DAY PRN PRN diarrhea 5 days #20 tabs 07/31/22 [Rx Last Taken Unknown] ondansetron 4 mg disintegrating tablet 4 mg PO TID PRN nausea and vomiting #21 tabs 07/31/22 [Rx Last Taken Unknown] tramadol 50 mg tablet 50 mg PO Q6H PRN pain 3 days #12 tabs 07/31/22 [Rx Last Taken Unknown] Allergy/AdvReac Type Severity Reaction Status Date / Time codeine Allergy Anaphylaxis Verified 07/30/22 21:49 hydrocodone bitartrate Allergy Rash Verified 07/30/22 21:49 [From Vicodin] oxycodone HCl [From Percocet] Allergy Anaphylaxis Verified 07/30/22 21:49 latex AdvReac Mild Rash Verified 07/30/22 21:49 Family History Other Diabetes Heart disease Liver cancer Lung disease Skin cancer Thyroid disorder Surgical History H/O total colectomy History of appendectomy History of cholecystectomy History of lithotripsy Social History Smoking Status: Former smoker alcohol intake: never ROS ROS ED Constitutional Constitutional ED: Denies chills or fever(s) ENT ENT ED: Denies sore throat Cardiovascular Cardiovascular: Denies chest pain Respiratory/Chest Respiratory/Chest: Denies cough or dyspnea Gastrointestinal Gastrointestinal: Reports abdominal pain, diarrhea, nausea and vomiting Genitourinary Genitourinary ED: Denies dysuria Musculoskeletal Musculoskeletal: Reports myalgias Integumentary Denies rash Neurologic Neurologic: Denies headache(s) Hematologic/Lymphatic Hematologic/Lymphatic: Denies easy bleeding or easy bruising EXAM Physical Exam Const Vital Signs: 07/30/22 21:47 07/31/22 00:12 Temperature 97.8 F Temperature Source Temporal Pulse Rate 105 H 85 Respiratory Rate 18 18 Blood Pressure 190/110 H Blood Pressure Mean 136 Pulse Ox 94 100 Oxygen Delivery Method Room Air Room Air Positive well nourished, well developed and obese General Appearance ED: well developed Nutritional Appearance: obese HEENT Reports dry mucous membranes Mouth ED: Yes dry mucous membranes Mouth: dry mucous membranes Eyes PERRL and EOMs intact bilaterally Neck supple Resp normal respiratory effort and clear to auscultation bilaterally Cardio regular rhythm Rate: tachycardic and other Other Details: Slightly tachycardic rate with regular rhythm. Radial pulses are plus 2 out of 4 bilaterally are equal and symmetric GI non-distended GI Narrative: Abdomen is obese soft and nondistended with hyperactive bowel sounds. There is mild diffuse pain with palpation without voluntary guarding or rigidity. There is liquidy brown stool present in the patient's ileostomy. No pulsatile mass or fluid wave. No increased tympany Auscultation: hyperactive bowel sounds Palpation: soft Extremity normal to inspection Neuro oriented x3 and CN's II-XII intact bilaterally Sensorium / Orientation: alert Psych mental status grossly normal Skin Skin Narrative: Skin turgor is increased and she has psoriatic changes that do not have secondary infectious process MDM MDM MDM Narrative Medical decision making narrative: Patient presented to the ER hypertensive but has a past medical history of this and with her symptoms/pain this is a normal physiologic response. Her abdomen is not domed or distended she has hyperactive bowel sounds and she is putting stool out through her ileostomy therefore my concern for obstruction is low. I do feel this is most likely viral in nature based on her symptom profile but as she is also diabetic there is concern she could be progressing to DKA or have severe electrolyte derangement. Therefore basic labs were obtained. The patient's white count is elevated at 13.2 but her lactic acid is normal. Her hemoglobin hematocrit are slightly elevated as well indicating this is most likely contraction from dehydration. She does not have elevation to her anion gap there is no drop in her bicarb and her electrolytes reveal no clinically significant findings. Therefore this time she does not have RAE she does not show changes consistent with DKA and there is no severe electrolyte derangement. Patient was given 2 L of IV fluid as well as Lomotil and Zofran and had improvement of her symptoms. On reevaluation her abdomen remains soft and nonsurgical and therefore with negative work-up and improvement of symptoms there is no need for further evaluation and patient is safe for discharge with symptomatic care Lab Data Attestation: I reviewed the patient's lab results. Labs: Laboratory Results - last 24 hr 07/30/22 07/30/22 07/30/22 23:07 23:07 23:07 WBC 13.2 H RBC 6.15 H Hgb 17.7 H Hct 51.8 H MCV 84.2 MCH 28.8 MCHC 34.2 RDW Std Deviation 40.7 RDW Coeff of Eleuterio 13.5 Plt Count 320 MPV 9.9 Immature Gran % (Auto) 0.700 Neut % (Auto) 72.1 H Lymph % (Auto) 16.2 L [place] % (Auto) 9.9 Eos % (Auto) 0.6 Baso % (Auto) 0.5 Absolute Neuts (auto) 9.5 H Absolute Lymphs (auto) 2.14 Nucleated RBC % 0 Sodium 132 L Potassium 3.9 Chloride 100 Carbon Dioxide 25.0 Anion Gap 7 BUN 9 Creatinine 0.97 Estim Creat Clear Calc 68.97 Est GFR (MDRD) Af Amer 79 Est GFR (MDRD) Non-Af 65 BUN/Creatinine Ratio 9.3 L Glucose 165 H Lactic Acid 1.9 Calcium 9.3 Magnesium 2.2 Total Bilirubin 0.80 Direct Bilirubin 0.27 AST 43 H ALT 63 H Alkaline Phosphatase 165 H Total Protein 9.2 H Albumin 3.7 Globulin 5.5 H Lipase 74 Discharge Plan Triage Chief Complaint: Nausea/Vomiting ED Provider: Everardo Collazo Dx/Rx/DC Orders Clinical Impression: Nausea vomiting and diarrhea, Dehydration, Diabetes, HTN (hypertension) Instructions: Dehydration, ED Vomiting and Diarrhea ... Prescriptions: New ondansetron 4 mg tablet,disintegrating 4 mg PO TID PRN (Reason: nausea and vomiting) Qty: 21 0RF diphenoxylate-atropine [Lomotil] 2.5-0.025 mg tablet 1 tab PO 4X/DAY PRN PRN (Reason: diarrhea) 5 Days Qty: 20 0RF tramadol 50 mg tablet 50 mg PO Q6H PRN (Reason: pain) 3 Days Qty: 12 0RF No Action albuterol sulfate 2.5 MG/3 ML solution for nebulization 2.5 mg inhalation Q4H PRN PRN (Reason: Bronchospasm) Label Comments: Breathing atenolol 25 MG tablet 25 mg PO DAILY Label Comments: Blood Pressure albuterol sulfate 1 INHALER inhaler 2 puff inhalation PRN PRN (Reason: Bronchospasm) Label Comments: Breathing tx potassium citrate 10 MEQ tablet extended release 10 meq PO BID Label Comments: supplement allopurinol 300 MG tablet 300 mg PO DAILY duloxetine 20 mg capsule,delayed release(DR/EC) 60 mg PO DAILY hyoscyamine sulfate 0.375 MG tablet 0.375 mg PO Q12 diclofenac sodium 50 mg Tablet,Delayed Release (Dr/Ec) 50 mg PO BID Basaglar KwikPen U-100 Insulin 24 units QHS Novolog Flexpen U-100 Insulin See Protocol PO.IVFORM ACHS Protocol: 6. Sliding Scale Insulin Custom Condition: mg/dl range Dose/Route: Number of Units Protocol Text: Custom Sliding Scale fluconazole [Diflucan] 150 mg tablet 150 mg PO Q3D PRN (Reason: yeast infection) Rx Instructions: may repeat second dose 72 hrs after first dose if symptoms persist pt to start if needed for yeast infections while taking atbx dicyclomine 10 mg Capsule 10 mg PO ACHS PRN (Reason: abdominal cramping) Qty: 20 0RF loperamide 2 mg Capsule 2 mg PO Q4H PRN PRN (Reason: Diarrhea) Qty: 0 0RF acetaminophen 500 mg capsule 1,000 mg PO Q8H PRN PRN (Reason: fever or pain) Qty: 30 0RF ondansetron 4 mg tablet,disintegrating 4 mg PO Q8H PRN PRN (Reason: Nausea) Qty: 10 0RF tramadol 50 mg tablet 50 mg PO Q8H PRN (Reason: pain) Qty: 10 0RF pioglitazone 15 mg tablet 15 mg PO DAILY leflunomide 20 mg tablet 20 mg PO DAILY hydroxychloroquine 200 mg tablet 200 mg PO DAILY Primary Care Provider: Angelica Quezada Referrals: Angelica Quezada MD [Primary Care Provider] - Activity Restrictions/Additional Instructions: Please take the medication as prescribed to help resolve your symptoms and keep yourself well-hydrated. If you have any further concerns please return to the ER for repeat evaluation. Disposition Disposition: Home, Self Care Discharge Date/Time: 07/31/22 01:47
[2022-07-30] MEDS: Diphenoxylate/Atrop 1 Tablet 2 TABLET PO (23:16)
[2022-07-30] MEDS: HYDROmorphone 1 MG/ML Syringe IV (23:16)
[2022-07-30 23:17] LABS: Absolute Lymphocyte Count 2.14 X10^3/uL (0.83-4.51); Absolute Neutrophil Count 9.5 X10^3/uL (2.0-7.7); Basophil# 0.07 X10^3/uL; Basophil% 0.5 % (0-1); Eosinophil# 0.08 X10^3/uL; Eosinophils% 0.6 % (0-5); Hematocrit 51.8 % (37-47); Hemoglobin 17.7 g/dL (12.0-15.0); Lymphocyte # 2.14 X10^3/ul (0.83-4.51); Lymphocyte % 16.2 % (19-41); Mean Corp Hgb Conc 34.2 g/dL (32-36); Mean Corpuscular Hgb 28.8 pg (27.0-32.0); Mean Corpuscular Volume 84.2 fL (81-99); Mean Platelet Vol. 9.9 fl (6.2-12.0); Monocyte# 1.31 X10^3/uL; Monocyte% 9.9 % (0-10); NRBC Flagged by Analyzer 0 % (0-5); Neutrophil # 9.49 X10^3/uL (2.7-7.7); Neutrophil % 72.1 % (47-70); Platelet Count 320 K/mm3 (150-450); RBC Distribution Width CV 13.5 % (11.6-14.6); RBC Distribution Width SD 40.7 fl (35.1-43.9); Red Blood Count 6.15 M/mm3 (4.2-5.4); White Blood Count 13.2 K/mm3 (4.4-11.0)
[2022-07-30] MEDS: 0.9% Normal Saline 1,000 ML 999 ML IV (23:19)
[2022-07-30] MEDS: Ondansetron 4 MG/2 ML Vial IV (23:19)
[2022-07-30 23:33] LABS: AST(SGOT) 43 U/L (15-37); Alanine Aminotransfer ALT/SGPT 63 U/L (13-56); Albumin, Serum 3.7 g/dL (3.2-5.0); Alkaline Phosphatase 165 U/L (45-117); Anion Gap 7 (5-15); BUN 9 mg/dL (7-18); BUN/Creat Ratio 9.3 RATIO (10-20); Bilirubin, Direct 0.27 mg/dL (0.00-0.30); Calcium,Total 9.3 mg/dL (8.5-10.1); Chloride 100 mmol/L (98-107); Creatinine, Serum 0.97 mg/dL (0.55-1.02); EST Glomerular Filtration Rate 65 mL/min (>60); Est Glom Filt Rate - Afr Amer 79 mL/min (>60); Estimated Creatinine Clearance 68.97 ml/min; Globulin 5.5 g/dL (2.2-4.2); Glucose 165 mg/dL (74-106); Lipase 74 U/L (73-393); Magnesium 2.2 mg/dL (1.6-2.6); Potassium 3.9 mmol/L (3.5-5.1); Protein, Total 9.2 g/dL (6.4-8.2); Sodium Level 132 mmol/L (136-145)
[2022-07-30 23:36] LABS: Lactic Acid 1.9 mmol/L (0.4-1.9)
[2022-07-31 00:12] VITALS: PULSE 85; RESP 18; O2SAT 100
[2022-07-31] MEDS: 0.9% Normal Saline 1,000 ML 999 ML IV (00:30)
== END 2022-07-31 01:47 | disposition home or self-care (01) ==
PROVIDERS: Emergency Provider Emergency Medicine; PCP Family Medicine; Visit Provider Emergency Medicine
DX: R11.2 Nausea with vomiting, unspecified (principal); Z93.2 Ileostomy status; J44.9 Chronic obstructive pulmonary disease, unspecified; E11.9 Type 2 diabetes mellitus without complications; E86.0 Dehydration; I10 Essential (primary) hypertension; R19.7 Diarrhea, unspecified; Z87.891 Personal history of nicotine dependence
CPT/HCPCS: 80048; 80076; 83605; 83690; 83735; 85025; 96374; 96375; 99284; J7030; A4216; J2405

== ENCOUNTER → 2022-08-22 | Outpatient (CLI) | payer OTHER, SELFPAY ==
[2022-08-22 12:41] LABS: Absolute Lymphocyte Count 1.08 X10^3/uL (0.83-4.51); Absolute Neutrophil Count 4.4 X10^3/uL (2.0-7.7); Basophil# 0.04 X10^3/uL; Basophil% 0.6 % (0-1); Eosinophil# 0.43 X10^3/uL; Eosinophils% 6.5 % (0-5); Hemoglobin 15.7 g/dL (12.0-15.0); Lymphocyte # 1.08 X10^3/ul (0.83-4.51); Lymphocyte % 16.4 % (19-41); Mean Corpuscular Hgb 27.8 pg (27.0-32.0); Mean Corpuscular Volume 86.7 fL (81-99); Mean Platelet Vol. 9.8 fl (6.2-12.0); Monocyte# 0.62 X10^3/uL; Monocyte% 9.4 % (0-10); NRBC Flagged by Analyzer 0 % (0-5); Neutrophil % 66.8 % (47-70); Platelet Count 231 K/mm3 (150-450); RBC Distribution Width CV 13.5 % (11.6-14.6); RBC Distribution Width SD 42.5 fl (35.1-43.9); Red Blood Count 5.65 M/mm3 (4.2-5.4); White Blood Count 6.6 K/mm3 (4.4-11.0)
[2022-08-22 13:28] LABS: AST(SGOT) 18 U/L (15-37); Alanine Aminotransfer ALT/SGPT 26 U/L (13-56); Albumin, Serum 3.1 g/dL (3.2-5.0); Alkaline Phosphatase 132 U/L (45-117); Bilirubin, Direct 0.23 mg/dL (0.00-0.30); Creatinine, Serum 0.84 mg/dL (0.55-1.02); EST Glomerular Filtration Rate 77 mL/min (>60); Est Glom Filt Rate - Afr Amer 94 mL/min (>60); Globulin 4.5 g/dL (2.2-4.2); Protein, Total 7.6 g/dL (6.4-8.2)
== END | disposition home or self-care (01) ==
LOC: MTLAB 11:19
PROVIDERS: PCP Family Medicine; Referring Provider Internal Medicine Rheumatology; Visit Provider Internal Medicine Rheumatology
DX: L40.50 Arthropathic psoriasis, unspecified (principal); Z79.899 Other long term (current) drug therapy
CPT/HCPCS: 36415; 80076; 82565; 85025

== ENCOUNTER → 2022-12-04 | Outpatient (CLI) | payer OTHER, SELFPAY ==
--- NOTE | 2022-12-04 14:22 | NEURO ---
NCS and/or EMG Patient Report Ordering Doctor: Angelica Quezada DATE OF SERVICE: 12/04/22 [place] presents electrodiagnostic testing of the lower limbs. She reports numbness tingling and pain in both feet. Electrodiagnostic findings: Peroneal motor nerve demonstrates normal distal latency, amplitude and conduction velocity bilaterally. Normal tibial motor response bilaterally. Normal peroneal and tibial F waves. H reflex within normal limits. Sensory responses are normal. On needle EMG, all muscles tested in the lower limbs showed no evidence of denervation with normal motor unit action potentials. Electrodiagnostic assessment: This is a normal electrodiagnostic study of the lower limbs. There is no electrodiagnostic evidence for peripheral polyneuropathy or lumbosacral radiculopathy. Consideration may be given for evaluation of small fiber neuropathy with potential nerve biopsy.
== END | disposition home or self-care (01) ==
LOC: PSN 12:30
PROVIDERS: PCP Family Medicine; Referring Provider Family Medicine; Visit Provider Family Medicine
DX: E11.42 Type 2 diabetes mellitus with diabetic polyneuropathy (principal); M79.661 Pain in right lower leg; M79.662 Pain in left lower leg
CPT/HCPCS: 95886; 95911

== ENCOUNTER → 2023-02-20 | Outpatient (CLI) | payer OTHER, SELFPAY ==
[2023-02-20 18:30] LABS: Erythrocyte Sedimentation Rate 39 mm/hr (0-30)
== END | disposition home or self-care (01) ==
LOC: MTLAB 16:23
PROVIDERS: PCP Family Medicine
DX: R74.8 Abnormal levels of other serum enzymes (principal)
CPT/HCPCS: 36415; 85652; 86140

== ENCOUNTER → 2023-03-11 | Outpatient (CLI) | payer OTHER, SELFPAY ==
[2023-03-11 15:03] LABS: Absolute Lymphocyte Count 1.64 X10^3/uL (0.83-4.51); Absolute Neutrophil Count 6.7 X10^3/uL (2.0-7.7); Basophil# 0.05 X10^3/uL; Basophil% 0.5 % (0-1); Eosinophil# 0.19 X10^3/uL; Hematocrit 47.3 % (37-47); Hemoglobin 15.1 g/dL (12.0-15.0); Lymphocyte # 1.64 X10^3/ul (0.83-4.51); Lymphocyte % 17.4 % (19-41); Mean Corp Hgb Conc 31.9 g/dL (32-36); Mean Corpuscular Hgb 27.3 pg (27.0-32.0); Mean Corpuscular Volume 85.4 fL (81-99); Mean Platelet Vol. 9.8 fl (6.2-12.0); Monocyte# 0.81 X10^3/uL; Monocyte% 8.6 % (0-10); NRBC Flagged by Analyzer 0 % (0-5); Neutrophil # 6.68 X10^3/uL (2.7-7.7); Neutrophil % 71.1 % (47-70); Platelet Count 260 K/mm3 (150-450); RBC Distribution Width CV 13.7 % (11.6-14.6); RBC Distribution Width SD 42.7 fl (35.1-43.9); Red Blood Count 5.54 M/mm3 (4.2-5.4); White Blood Count 9.4 K/mm3 (4.4-11.0)
[2023-03-11 15:29] LABS: ALB/GLOB Ratio 0.6 RATIO (0.9-2.4); AST(SGOT) 27 U/L (15-37); Alanine Aminotransfer ALT/SGPT 27 U/L (13-56); Albumin, Serum 3.1 g/dL (3.2-5.0); Alkaline Phosphatase 135 U/L (45-117); Anion Gap 8 (5-15); BUN 9 mg/dL (7-18); BUN/Creat Ratio 11.2 RATIO (10-20); Calcium,Total 8.6 mg/dL (8.5-10.1); Chloride 104 mmol/L (98-107); Cholesterol 211 mg/dL (200); EST Glomerular Filtration Rate 81 mL/min (>60); Est Glom Filt Rate - Afr Amer 97 mL/min (>60); Globulin 4.9 g/dL (2.2-4.2); Glucose 93 mg/dL (74-106); High Density Lipoprotein 79 mg/dL; Potassium 3.6 mmol/L (3.5-5.1); Sodium Level 138 mmol/L (136-145); Thyroid Stim Hormone (TSH) 1.21 uIU/mL (0.358-3.74); Triglycerides 121 mg/dL; Very Low Density Lipoprotein 24 mg/dL (5-40)
[2023-03-11 15:41] LABS: Microalbumin,Random Urine 32.2 mg/L (NO RANGE EST.); Microalbumin:Creatinine Ratio 8.4 mg/g CRE (<30 mg/g CRE)
== END | disposition home or self-care (01) ==
LOC: LAB.FUTURE 13:34 → BFHLAB 13:37
PROVIDERS: PCP Family Medicine; Referring Provider Family Medicine; Visit Provider Family Medicine
DX: I10 Essential (primary) hypertension (principal); E11.9 Type 2 diabetes mellitus without complications; K76.0 Fatty (change of) liver, not elsewhere classified
CPT/HCPCS: 36415; 80053; 80061; 82043; 82570; 84443; 85025

== ENCOUNTER → 2023-04-08 | Outpatient (CLI) | payer OTHER, SELFPAY ==
[2023-04-08 10:52] LABS: Vitamin B12 733 pg/mL (211-911)
[2023-04-08 11:05] LABS: Ferritin 37 ng/mL (8-252); Iron 63 ug/dL (50-170); Iron Binding Capacity,Total 345 ug/dL (250-450); Magnesium 2.1 mg/dL (1.6-2.6); Uric Acid 2.8 mg/dL (2.6-6.0)
[2023-04-09 13:08] LABS: ANTINUCLEAR ANTIBODIES DIRECT Negative (Negative); Vitamin D 1,25-Dihydroxy 49.2 pg/mL (24.8-81.5)
[2023-04-10 18:07] LABS: Free Kappa Light Chains 35.5 mg/L (3.3-19.4); Transferrin 298 mg/dL (192-364)
== END | disposition home or self-care (01) ==
LOC: MTLAB 07:06
PROVIDERS: PCP Family Medicine; Referring Provider Psychiatry & Neurology Neurology; Visit Provider Psychiatry & Neurology Neurology
DX: G62.9 Polyneuropathy, unspecified (principal); E55.9 Vitamin D deficiency, unspecified; D75.1 Secondary polycythemia; Z86.2 Personal history of diseases of the blood and blood-forming organs and certain disorders involving the immune mechanism
CPT/HCPCS: 36415; 82607; 82652; 82668; 82728; 82746; 83540; 83550; 83735; 83883; 84425; 84466; 84550; 86038; 86225; 86235

== ENCOUNTER → 2023-07-30 | Outpatient (CLI) | payer OTHER, SELFPAY ==
[2023-08-01 13:07] LABS: Albumin 3.2 g/dL (2.9-4.4); Alpha-1-Globulins 0.3 g/dL (0.0-0.4); Alpha-2-Globulins 0.7 g/dL (0.4-1.0); Gamma Globulin 1.7 g/dL (0.4-1.8); Immunoglobulin A 386 mg/dL (87-352); Immunoglobulin G 1681 mg/dL (586-1602); Immunoglobulin M 180 mg/dL (26-217); PROEL- TOTAL PROTEIN 7.1 g/dL (6.0-8.5)
== END | disposition home or self-care (01) ==
PROVIDERS: PCP Family Medicine; Referring Provider Psychiatry & Neurology Neurology; Visit Provider Psychiatry & Neurology Neurology
DX: G62.9 Polyneuropathy, unspecified (principal)
CPT/HCPCS: 36415; 82784; 84165; 86334; 86335

== ENCOUNTER → 2023-08-12 | Outpatient (CLI) | payer OTHER, SELFPAY ==
[2023-08-12 15:29] LABS: Absolute Lymphocyte Count 1.46 X10^3/uL (0.83-4.51); Basophil# 0.04 X10^3/uL; Basophil% 0.6 % (0-1); Eosinophil# 0.26 X10^3/uL; Eosinophils% 4.2 % (0-5); Hematocrit 44.5 % (37-47); Hemoglobin 14.3 g/dL (12.0-15.0); Lymphocyte # 1.46 X10^3/ul (0.83-4.51); Lymphocyte % 23.3 % (19-41); Mean Corp Hgb Conc 32.1 g/dL (32-36); Mean Corpuscular Hgb 26.8 pg (27.0-32.0); Mean Corpuscular Volume 83.5 fL (81-99); NRBC Flagged by Analyzer 0 % (0-5); Neutrophil # 3.98 X10^3/uL (2.7-7.7); Neutrophil % 63.6 % (47-70); Platelet Count 187 K/mm3 (150-450); RBC Distribution Width CV 13.9 % (11.6-14.6); RBC Distribution Width SD 42.4 fl (35.1-43.9); Red Blood Count 5.33 M/mm3 (4.2-5.4); White Blood Count 6.3 K/mm3 (4.4-11.0)
[2023-08-12 15:49] LABS: AST(SGOT) 24 U/L (15-37); Alanine Aminotransfer ALT/SGPT 28 U/L (13-56); Albumin, Serum 2.9 g/dL (3.2-5.0); Alkaline Phosphatase 143 U/L (45-117); Bilirubin, Direct 0.14 mg/dL (0.00-0.30); Protein, Total 7.9 g/dL (6.4-8.2)
== END | disposition home or self-care (01) ==
LOC: MTLAB 12:53
PROVIDERS: PCP Family Medicine; Referring Provider Internal Medicine Rheumatology; Visit Provider Internal Medicine Rheumatology
DX: R74.8 Abnormal levels of other serum enzymes (principal)
CPT/HCPCS: 36415; 80076; 85025

== ENCOUNTER → 2023-09-15 | Outpatient (CLI) | payer OTHER, SELFPAY ==
--- NOTE | 2023-09-15 08:59 | ART_ITS ---
Reason For Study: Cool Extremities Procedure A bilateral lower extremity continuous wave Doppler with analog waveform analysis and ankle brachial indexes. Left Segmental Pressures Left brachial= 160mmHg. Left posterior tibial artery = 179mmHg. Left dorsalis pedis artery = 184mmHg. Left digit = 139 mmHg. The left posterior tibial artery waveforms are triphasic. The left dorsalis pedis waveforms are triphasic. Right Segmental Pressures Right brachial= 151mmHg. Right posterior tibial artery = 183mmHg. Right dorsalis pedis artery = 180mmHg. Right digit = 145 mmHg. The right posterior tibial artery waveforms are triphasic. The right dorsalis pedis waveforms are triphasic. Indices The right ankle brachial index by the posterior tibial artery is 1.14. The right ankle brachial index by the dorsalis pedis is 1.13. The right digital-brachial index is 0.91. The left ankle brachial index by the posterior tibial artery is 1.12. The left ankle brachial index by the dorsalis pedis is 1.15. The left digital-brachial index is 0.87. VL/Ankle Brachial Index Interpretation Summary Normal right lower extremity posterior tibialis and dorsalis pedis ankle-brachi al indices at rest at 1.14 and 1.13 respectively with normal triphasic Doppler waveforms and normal d igital brachial index of 0.91 Normal left lower extremity posterior tibialis and dorsalis pedis ankle-brachia l indices at rest at 1.12 and 1.15 respectively with normal triphasic Doppler waveforms and normal d igital brachial index of 0.87 Ordering Physician: Karely Quezada Referring Physician: KARELY QUEZADA MD Performed By: Jovani Yang RVT
== END | disposition home or self-care (01) ==
LOC: CVS 08:54
PROVIDERS: PCP Family Medicine; Referring Provider Family Medicine; Visit Provider Family Medicine
DX: I73.9 Peripheral vascular disease, unspecified (principal)
CPT/HCPCS: 93922

== ENCOUNTER → 2024-01-19 | Outpatient (CLI) | payer OTHER, SELFPAY ==
[2024-01-19 12:33] LABS: Absolute Lymphocyte Count 1.19 X10^3/uL (0.83-4.51); Absolute Neutrophil Count 4.1 X10^3/uL (2.0-7.7); Basophil# 0.06 X10^3/uL; Eosinophil# 0.32 X10^3/uL; Eosinophils% 5.1 % (0-5); Hemoglobin 11.6 g/dL (12.0-15.0); Lymphocyte # 1.19 X10^3/ul (0.83-4.51); Lymphocyte % 19.1 % (19-41); Mean Corp Hgb Conc 29.7 g/dL (32-36); Mean Corpuscular Hgb 22.8 pg (27.0-32.0); Mean Corpuscular Volume 76.8 fL (81-99); Mean Platelet Vol. 9.7 fl (6.2-12.0); Monocyte# 0.47 X10^3/uL; Monocyte% 7.6 % (0-10); NRBC Flagged by Analyzer 0 % (0-5); Neutrophil # 4.14 X10^3/uL (2.7-7.7); Neutrophil % 66.6 % (47-70); Platelet Count 213 K/mm3 (150-450); RBC Distribution Width CV 14.8 % (11.6-14.6); RBC Distribution Width SD 40.4 fl (35.1-43.9); Red Blood Count 5.08 M/mm3 (4.2-5.4); White Blood Count 6.2 K/mm3 (4.4-11.0)
== END | disposition home or self-care (01) ==
PROVIDERS: PCP Family Medicine; Referring Provider Internal Medicine Rheumatology; Visit Provider Internal Medicine Rheumatology
DX: R79.89 Other specified abnormal findings of blood chemistry (principal)
CPT/HCPCS: 36415; 85025

== ENCOUNTER → 2024-02-12 | Outpatient (CLI) | payer OTHER, SELFPAY ==
[2024-02-12 16:57] LABS: Platelet Count 274 K/mm3 (150-450); RET-HE 25.4 pg (30-35); Reticulocyte Count 1.75 % (0.5-1.5)
[2024-02-12 17:19] LABS: PTHIN 261.6 pg/mL (18.4-80.1)
[2024-02-12 17:23] LABS: Vitamin B12 651 pg/mL (211-911)
[2024-02-12 17:37] LABS: Erythrocyte Sedimentation Rate 26 mm/hr (0-30)
[2024-02-12 17:40] LABS: Ferritin 14 ng/mL (8-252); Free T3 2.7 pg/mL (2.18-3.98); Iron 15 ug/dL (50-170); Iron Binding Capacity,Total 374 ug/dL (250-450); LDH 236 U/L (84-246); Thyroid Stim Hormone (TSH) 1.07 uIU/mL (0.358-3.74)
[2024-02-16 12:08] LABS: Vitamin D 1,25-Dihydroxy 50.8 pg/mL (24.8-81.5)
== END | disposition home or self-care (01) ==
LOC: LAB 16:17
PROVIDERS: PCP Family Medicine; Referring Provider Internal Medicine Gastroenterology; Visit Provider Internal Medicine Gastroenterology
DX: D75.1 Secondary polycythemia (principal)
CPT/HCPCS: 36415; 82607; 82652; 82728; 82746; 82784; 82785; 83516; 83540; 83550; 83615; 83970; 84439; 84443; 84481; 85045; 85652; 86140; 86255

== ENCOUNTER → 2024-02-14 | Outpatient (CLI) | payer OTHER, SELFPAY ==
[2024-02-16 14:08] LABS: Anti-Mitochondrial AB <20.0 Units (0.0-20.0)
[2024-02-19 09:09] LABS: ACCA 18 units (0-90); ALCA 31 units (0-60); AMCA 111 units (0-100); Albumin 3.1 g/dL (2.9-4.4); Alpha-1-Globulins 0.3 g/dL (0.0-0.4); Alpha-2-Globulins 0.7 g/dL (0.4-1.0); Anti-Smooth Muscle ABS 7 Units (0-19); Cytoplasmic Ab (C-ANCA) <1:20 titer (Neg:<1:20); Dopamine, 24Ur 324 ug/24 hr (0-510); Dopamine, Pl 84 pg/mL (0-48); Dopamine, UR 324 ug/L (Undefined); Epinephrine, 24Ur 4 ug/24 hr (0-20); Epinephrine, Pl <15 pg/mL (0-62); Epinephrine, Ur 4 ug/L (Undefined); Gamma Globulin 1.5 g/dL (0.4-1.8); Gastrin, Serum 70 pg/mL (0-115); IgG, Quant 1663 mg/dL (586-1602); Immunoglobulin A 396 mg/dL (87-352); Immunoglobulin G, Subclass 1 986 mg/dL (248-810); Immunoglobulin G, Subclass 2 273 mg/dL (130-555); Immunoglobulin G, Subclass 3 16 mg/dL (15-102); Immunoglobulin G, Subclass 4 109 mg/dL (2-96); Immunoglobulin M 182 mg/dL (26-217); Norepinephrine, 24Ur 180 ug/24 hr (0-135); Norepinephrine, Pl 1278 pg/mL (0-874); Norepinephrine, Ur 180 ug/L (Undefined); PROEL- TOTAL PROTEIN 6.9 g/dL (6.0-8.5); Perinuclear Ab (P-ANCA) <1:20 titer (Neg:<1:20); VMA, 24UR 2.6 mg/24 hr (0.0-7.5); VMA, UR 2.6 mg/L (Undefined); gASCA 39 units (0-50)
== END | disposition home or self-care (01) ==
PROVIDERS: PCP Family Medicine; Referring Provider Internal Medicine Gastroenterology; Visit Provider Internal Medicine Gastroenterology
DX: D75.1 Secondary polycythemia (principal)
CPT/HCPCS: 36415; 81050; 82384; 82784; 82787; 82941; 83516; 84165; 84585; 86036; 86256; 86334; 86671

== ENCOUNTER 2024-02-25 05:54 | Day surgery (SDC) | payer OTHER, SELFPAY ==
[2024-02-25 06:24] VITALS: BP 142/89; PULSE 91; RESP 16; TEMP 36.8; O2SAT 98; BMI 46.3
[2024-02-25] MEDS: Lactated Ringers 1,000 ML 15 ML IV (06:46)
--- NOTE | 2024-02-25 07:00 | EGD_PTH ---
PATIENT: VENKAT BECERRA LOC: EN U#:[id number] AGE/SX: 49/F ROOM: RE02/25/[address]: Dr. Jose Lopez DO : 1975 BED: DIS: 02/25/2024 SPEC #: [id number] RECD: 02/25/24 09:45 STATUS: MALI HEATHER #: [id number] RONALD: 02/25/24 07:[address]: Jose Lopez DEPT: SURGICAL PATHOLOGY RECD BY: Kamila Melton ENTERED: 02/25/24 12:18 SP TYPE: EGD BIOPSY WILLIE DR: Dr. Angelica Quezada MD Tissues: A - Duodenum, NOS B - Gastric mucous membrane C - Esophagus, NOS Procedures: Surgery Specimen Level IV HEADER OPERATION: EGD with biopsy PRE-OP DIAGNOSIS: Gastrointestinal hemorrhage TISSUE SUBMITTED: A- Duodenum biopsy, B- Gastric body biopsy, C- Random esophagus biopsy MICROSCOPIC DIAGNOSIS A. Duodenum, biopsy: Fragments of duodenal mucosa with focal gastric metaplasia. B. Gastric body, biopsy: Mild gastritis. See microscopic description and comment. C. Esophagus, random biopsy: Fragments of squamous epithelium with moderate to marked superficial acute inflammation. See comment. SINTIA/ 02/26/2024 COMMENT B. The results of immunohistochemistry for Helicobacter pylori will be reported separately ([id number]). C. Focal bacterial colonization is also noted. Eosinophils are mildly increased (about 10 per high power field). 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 Clinical correlation and appropriate follow up are necessary. Case has been reviewed in consultation with Dr. Delarosa who concurs with the above diagnosis. IDC:AM MICROSCOPIC DESCRIPTION Slides are reviewed. B. The specimen shows fragments of gastric mucosa with chronic inflammatory cell infiltrates in the lamina propria consisting of lymphocytes and plasma cells, consistent with mild chronic gastritis. GROSS DESCRIPTION A. Received in fixative is one container labeled with the patient's name and designated Duodenum biopsy. The specimen consists of two irregular fragments of light bob soft tissue that in aggregate measure 0.6 x 0.3 x 0.1 cm. The specimen is totally submitted in one cassette. B. Received in fixative is one container labeled with the patient's name and designated Gastric body biopsy. The specimen consists of multiple irregular fragments of light bob soft tissue that in aggregate measure 1.5 x 0.4 x 0.1 cm. The specimen is totally submitted in one cassette. C. Received in fixative is one container labeled with the patient's name and designated Random esophagus biopsy. The specimen consists of multiple irregular fragments of light bob soft tissue that in aggregate measure 1.5 x 0.7 x 0.1 cm. The specimen is totally submitted in one cassette. SINTIA/ 02/25/2024 TC:2 CPT:82242d8 ,47216
--- NOTE | 2024-02-25 07:00 | IMM_PTH ---
PATIENT: VENKAT BECERRA LOC: [place] U#:[id number] AGE/SX: 49/F ROOM: RE02/25/[address]: Dr. Jose Lopez DO : 1975 BED: DIS: 02/25/2024 SPEC #: [id number] RECD: 02/25/24 15:03 STATUS: MALI REKristin #: [id number] RONALD: 02/25/24 07:[address]: Jose Lopez DEPT: IMMUNOHISTOCHEMISTRY RECD BY: Amarjit Sharma ENTERED: 02/25/24 15:03 SP TYPE: IMMUNO OTHR DR: Dr. Angelica Quezada MD Tissues: B - Stomach, NOS Procedures: H Pylori (initial) PHYSICIAN & INSTITUTION [place] [id number] SPECIMEN INFORMATION: Tissue Source: B- Gastric body biopsy Clinical Info: Gastrointestinal bleeding Specimen Number: [id number] CPT code: 72590 METHODOLOGY: Deparaffinized sections of prefer/formalin-fixed tissue or PAP/DQ stained slides are incubated with monoclonal/polyclonal antibodies/oligonucleotide probes. Localization is made via biotin free immunoperoxidase method. Appropriate controls are performed and reacted as expected. Results on target cell population are indicated in the following table: RESULTS: ANTIBODY / CLONE RESULT Block B H Pylori (polyclonal) negative These tests were developed and their performance characteristics determined by [facility]. They may not have been cleared or approved by the U.S. Food and Drug Administration. The FDA has determined that such clearance or approval is not necessary. The above immunohistochemical/dualISH markers are ordered and reviewed by the Pathologist. INTERPRETATION: B. Gastric body, biopsy: Negative for Helicobacter pylori organisms. SINTIA/ 02/26/24
[2024-02-25 07:07] LABS: Bedside Glucose 153 mg/dL (74-106)
--- NOTE | 2024-02-25 07:26 | PCM.HP.BLA ---
History and Physical Date of Admission: 02/25/24 49 F who presents to the office today for referral from PCP for a possible upper GI bleed. OV 5.2.24 pt reports that she has daily HB after she takes her medications and that mints are the only thing she has found to help. Pt reports difficulty swallowing and feels like food is getting stuck on something in her throat when she eats. Pt reports an upper stomach burning/cramping feeling and is unsure of triggers or any alleviating measures. Exam Const General: cooperative, healthy appearing and no acute distress Nutritional Appearance: average body habitus Orientation: alert, awake and oriented x3 HENMT Head: normal to inspection Ears: hearing grossly normal bilaterally, external ears normal, TM's normal bilaterally and EAC's normal Nose: external nose normal, nares normal, septum normal and no nasal discharge Face and sinus: normal facial exam, sinuses nontender and face symmetric Mouth: oral mucosae normal, lip normal, tongue normal and oropharynx normal Throat: posterior oropharynx normal, uvula midline, abnormal tonsil bilaterally erythema and postnasal drainage (Clear) Eyes General: appearance normal, both eyes and all related structures (Except OU conjunctival injection with exudate; negative limbus OU) Neck Neck: normal visual inspection, full ROM, no lymphadenopathy, no meningeal signs and supple Neck mass: No Thyroid: thyroid normal Lymphatic: no lymphadenopathy noted Chest Chest palpation & inspection: normal inspection of the chest Resp Effort & Inspection: normal respiratory effort and able to speak in complete sentences Auscultation: Bilateral: Clear to Auscultation Cardio Palpation: normal PMI Rate: regular rate Rhythm: regular rhythm Heart Sounds: S1 normal, S2 normal, no gallops, no murmurs and no rubs Pulses: radial pulses present Skin General: no rashes or lesions noted Neuro General: patient alert, patient awake and patient oriented x3 Cognition: normal cognition Speech: speech normal Psych Appearance: grossly normal Mental Status: mental status grossly normal Mood: congruent mood Affect: normal affect Speech and Movement: speech and movement normal Attitude: cooperative Assessment and Plan Assessment and Plan (1) Gastrointestinal hemorrhage: Plan: GI bleed from unknown cause. She is on immunosuppressive therapy. Differential diagnosis includes peptic ulcer disease, H. pylori associated disease, daily Lavonne lesion, angiodysplasia as etiology of GI bleed. Etiology of chronic iron deficiency anemia would be daily Lavonne lesion, peptic ulcer disease, gastric antral vascular ectasia. She will undergo an upper endoscopy to evaluate upper GI tract she will also undergo biochemical testing liver for diseases such as autoimmune gastritis and other diseases of the upper GI tract. (2) Polycythemia: Status: Acute Orders: Orders IBD Expanded Profile 02/12/24 D75.1 - Secondary polycythemia Gastrin, Serum 02/12/24 D75.1 - Secondary polycythemia ANCA 02/12/24 D75.1 - Secondary polycythemia Miscellaneous Lab Procedure 02/12/24 D75.1 - Secondary polycythemia ELADIO + Protein Elect, Serum 02/12/24 D75.1 - Secondary polycythemia CRP 02/12/24 D75.1 - Secondary polycythemia Erythrocyte Sed Rate 02/12/24 D75.1 - Secondary polycythemia IgG Subclasses 02/12/24 D75.1 - Secondary polycythemia Vitamin B12 02/12/24 D75.1 - Secondary polycythemia Folates, (Folic Acid) 02/12/24 D75.1 - Secondary polycythemia Celiac Disease Profile 02/12/24 D75.1 - Secondary polycythemia Anti-Smooth Muscle ABS 02/12/24 D75.1 - Secondary polycythemia Anti-Mitochondrial AB 02/12/24 D75.1 - Secondary polycythemia LDH 02/12/24 D75.1 - Secondary polycythemia Immunoglobulins G/A/M/E 02/12/24 D75.1 - Secondary polycythemia Vitamin D 1,25-Dihydroxy 02/12/24 D75.1 - Secondary polycythemia Thyroid Stim Hormone (TSH) 02/12/24 D75.1 - Secondary polycythemia T4 Free Direct 02/12/24 D75.1 - Secondary polycythemia Free T3 02/12/24 D75.1 - Secondary polycythemia Ferritin 02/12/24 D75.1 - Secondary polycythemia Iron 02/12/24 D75.1 - Secondary polycythemia Retic Panel Count 02/12/24 D75.1 - Secondary polycythemia Iron Binding Capacity,Total 02/12/24 D75.1 - Secondary polycythemia PTHIN 02/12/24 D75.1 - Secondary polycythemia Catachol+VMA, 24 HR UR 02/12/24 D75.1 - Secondary polycythemia Catecholamines, Plasma 02/12/24 D75.1 - Secondary polycythemia I have examined the patient and the H&P has been reviewed. There are no clinical changes since date of exam.
[2024-02-25 07:42] VITALS: BP 127/97; BP 142/89; PULSE 77; RESP 20; TEMP 36.9; O2SAT 96
[2024-02-25 07:45] VITALS: BP 124/71; BP 142/89; PULSE 79; RESP 20; O2SAT 96
--- NOTE | 2024-02-25 07:45 | OP.EGD_ITS ---
Patient Name: Mone Xavier Procedure Date: 02/25/2024 7:20 AM Date of : 1975 Age: 49 Procedure: Upper GI endoscopy Indications: Iron deficiency anemia, Dysphagia Providers: Jose Lopez DO Referring MD: Angelica Quezada Medicines: Monitored Anesthesia Care Patient Profile: This is a 49 year old female. Refer to note in patient chart for documentation of history and physical. Patient has symptoms of chronic dyspepsia and chronic nausea. Complications: No immediate complications. Procedure: Pre-Anesthesia Assessment: - Prior to the procedure, a History and Physical was performed, and patient medications and allergies were reviewed. The patient is competent. The risks and benefits of the procedure and the sedation options and risks were discussed with the patient. All questions were answered and informed consent was obtained. Patient identification and proposed procedure were verified by the physician in the pre-procedure area. Mental Status Examination: alert and oriented. Airway Examination: normal oropharyngeal airway and neck mobility. Respiratory Examination: clear to auscultation. CV Examination: normal. Prophylactic Antibiotics: The patient does not require prophylactic antibiotics. Prior Anticoagulants: The patient has taken no anticoagulant or antiplatelet agents except for NSAID medication. ASA Grade Assessment: III - A patient with severe systemic disease. After reviewing the risks and benefits, the patient was deemed in satisfactory condition to undergo the procedure. The anesthesia plan was to use monitored anesthesia care (MAC). Immediately prior to administration of medications, the patient was re-assessed for adequacy to receive sedatives. The heart rate, respiratory rate, oxygen saturations, blood pressure, adequacy of pulmonary ventilation, and response to care were monitored throughout the procedure. The physical status of the patient was re-assessed after the procedure. After obtaining informed consent, the endoscope was passed under direct vision. Throughout the procedure, the patient's blood pressure, pulse, and oxygen saturations were monitored continuously. The gastroscope was introduced through the mouth, and advanced to the second part of duodenum. The upper GI endoscopy was accomplished without difficulty. The patient tolerated the procedure well. Scope In: 7:32:57 AM Scope Out: 7:37:30 AM Total Procedure Duration Time 0 hours 4 minutes 33 seconds Findings: Diffuse moderate mucosal variance characterized by scalloping, altered texture and vertical lines was found in the entire esophagus. It resemble esophageal dissecans biopsies were taken with a cold forceps for histology. Verification of patient identification for the specimen was done. Estimated blood loss was minimal. Patchy moderate inflammation characterized by erosions and erythema was found in the gastric body. Biopsies were taken with a cold forceps for histology. Verification of patient identification for the specimen was done. Estimated blood loss was minimal. Biopsies were taken with a cold forceps for Helicobacter pylori testing. Verification of patient identification for the specimen was done. Estimated blood loss was minimal. Diffuse mucosal flattening was found in the duodenal bulb. Biopsies were taken with a cold forceps for histology. Verification of patient identification for the specimen was done. Estimated blood loss was minimal. 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 Biopsied. 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 - Flattened mucosa was found in the duodenum, diagnostic of celiac disease. Biopsied. Recommendation: - Discharge patient to home. - Resume previous diet. - Continue present medications. - Await pathology results. Procedure Code(s): --- Professional --- 94484, Esophagogastroduodenoscopy, flexible, transoral; with biopsy, single or multiple CPT copyright 2021 [employer] [place] [employer]. All rights reserved. The codes documented in this report are preliminary and upon installer interior assemblies review may be revised to meet current compliance requirements. Jose Lopez DO 02/25/2024 7:45:26 AM This report has been signed electronically. Number of Addenda: 0 Note Initiated On: 02/25/2024 7:20 AM
--- NOTE | 2024-02-25 07:46 | OP.CCLET_ITS ---
02/25/2024 Angelica Quezada [place] [id number] [address] Re : Upper GI endoscopy procedure for Mone White Dear Dr. Quezada This procedure was performed on Sunday, February 25, 2024. 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 Biopsied. 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 - Flattened mucosa was found in the duodenum, diagnostic of celiac disease. Biopsied. Recommendations : - Discharge patient to home. - Resume previous diet. - Continue present medications. - Await pathology results. My findings are described in the full procedure note, which is enclosed. If I can be of further assistance, please feel free to contact me at . Sincerely, Jose Lopez, 02/25/2024 7:45:26 AM This report has been signed electronically.
[2024-02-25 07:50] VITALS: BP 128/76; BP 142/89; PULSE 73; RESP 20; O2SAT 97
[2024-02-25 07:59] VITALS: BP 123/70; BP 142/89; PULSE 74; RESP 18; TEMP 36.3; O2SAT 98
[2024-02-25 08:17] VITALS: BP 142/89
== END 2024-02-25 08:27 | disposition home or self-care (01) ==
LOC: EN 05:55 → AC 05:56
PROVIDERS: PCP Family Medicine; Referring Provider Family Medicine; Visit Provider Internal Medicine Gastroenterology
PROC: 0DJ08ZZ Inspection of Upper Intestinal Tract, Via Natural or Artificial Opening Endoscopic (ICD-10-PCS; CPT 43235; principal; 2024-02-25 06:55)
DX: K92.2 Gastrointestinal hemorrhage, unspecified (principal); K90.0 Celiac disease; K29.50 Unspecified chronic gastritis without bleeding; D75.1 Secondary polycythemia; I10 Essential (primary) hypertension; Z79.899 Other long term (current) drug therapy; K22.89 Other specified disease of esophagus; K31.A0 Gastric intestinal metaplasia, unspecified
CPT/HCPCS: 43239; 82962; 88305; 88342; J7120; J2405

== ENCOUNTER → 2024-03-09 | Outpatient (CLI) | payer OTHER, SELFPAY ==
[2024-03-09 08:56] LABS: Cholesterol 212 mg/dL (200); High Density Lipoprotein 78 mg/dL; Prolactin 7.5 ng/mL; Triglycerides 164 mg/dL; Very Low Density Lipoprotein 33 mg/dL (5-40)
== END | disposition home or self-care (01) ==
LOC: LAB 07:27
PROVIDERS: Internal Medicine Gastroenterology; PCP Family Medicine; Referring Provider Nurse Practitioner Family; Visit Provider Nurse Practitioner Family
DX: Z00.01 Encounter for general adult medical examination with abnormal findings (principal); D75.1 Secondary polycythemia
CPT/HCPCS: 36415; 80061; 81270; 82668; 84146

== ENCOUNTER → 2024-03-16 | Outpatient (CLI) | payer OTHER, SELFPAY ==
--- NOTE | 2024-03-16 10:00 | PET_ITS ---
EXAMINATION: FDG PET-CT INDICATIONS: A 49-year-old female with history of pancreatic carcinoma presenting for restaging examination. COMPARISON EXAMINATION: None available TECHNIQUE: Following the intravenous administration of 13.7 mCi of F-18 deoxyglucose, multiplanar image acquisitions of the neck, chest, abdomen and pelvis to level of mid thigh, obtained at one hour post radiopharmaceutical administration contemporaneously interpreted with the current CT of the neck, chest, abdomen and pelvis, to level of mid thigh, dated 03/16/24 via coregistration reveals: HEIGHT:?67 inches?WEIGHT: 295 lbs. FINDINGS: Head/Neck: There is no evidence of abnormal increased glucose metabolism in the pharyngeal mucosal space, parapharyngeal space, bilateral-lateral and anterior neck, hypopharynx and distribution of the laryngeal structures. The visualized portion of the cerebral cortical-subcortical structures demonstrate symmetric and preserved glucose metabolism. CHEST: There is no quantitative scintigraphic evidence of abnormal increased glucose metabolism within the context of the bilateral hemithorax pulmonary parenchyma, right and left hemithorax pleural interface, mediastinal structures and right-left thoracic perihilum. Prominent radiopharmaceutical concentration is identified in the left ventricular myocardium commensurate with the [place]. There is prominent thoracic paravertebral muscle tension artifact. Pertinent chest CT findings are as follows. A linear density noted in the right lower posterior lung zone is ametabolic. Bilateral axillary and mediastinal soft tissue densities are ametabolic. There is atherosclerotic calcification defined in the thoracic aorta without evidence of dilatation-aneurysm formation. Abdomen/Pelvis: Normal physiologic distribution of the radiopharmaceutical is apparent in the hepatic (3.5) and splenic parenchyma, both renal units, bladder and visualized intestinal tract. Diffuse radiopharmaceutical concentration is noted in all four quadrants of the abdomen and pelvis. Prominent uptake is noted in the right paramedian anterior pelvic wall commensurate with colostomy placement. The abdomen and pelvis CT findings are as follows. Calcified phlebolith formation is demonstrated. Right and left inguinal soft tissue densities are ametabolic. The gallbladder appears surgically absent. Skeletal: Degenerative changes are noted in the cervical, thoracic and lumbar spine without evidence of increased radiopharmaceutical concentration. PET/PET/CT Tumor Base -Thigh Init IMPRESSION: 1. NEGATIVE EXAMINATION. There is no definitive quantitative scintigraphic evidence of recurrent-metastatic/viable neoplasm. Electronic Signature Edmar Larry D.O. Accurate Quantification of SUVs for this report are calculated using the exclusive [employer], (U.S. Patent No. [phone] [id number] [phone] [place] patent [phone] ). Standardization and correction of the FDG SUV metric exclusively available with [employer] intellectual property, allow for vendor non-specific objective quantitative sequential FDG PET-CT comparison and otherwise unobtainable optimization of the sensitivity and specificity of the examination. [email or web address]/[email or web address] Electronically Signed: Edmar Larry DO at 22:35 EDT ,
== END | disposition home or self-care (01) ==
LOC: ONC 09:48
PROVIDERS: PCP Family Medicine; Referring Provider Internal Medicine Gastroenterology; Visit Provider Internal Medicine Gastroenterology
DX: D3A.8 Other benign neuroendocrine tumors (principal); R77.9 Abnormality of plasma protein, unspecified
CPT/HCPCS: 78815; A9552

== ENCOUNTER → 2024-05-18 | Outpatient (CLI) | payer OTHER, SELFPAY ==
--- NOTE | 2024-05-18 09:03 | MRI_ITS ---
EXAM: MR ABDOMEN AND PELVIS WITH INTRAVENOUS CONTRAST CLINICAL INDICATION: K92.2 - Gastrointestinal hemorrhage, unspecified TECHNIQUE: Multiplanar and multisequence MR images of the abdomen and pelvis with intravenous contrast. High-field strength MRI. CONTRAST: 25 cc of Clariscan IV. COMPARISON: CT scan of the abdomen and pelvis 06/25/2022. FINDINGS: LOWER THORAX: Unremarkable. No pleural effusion. ABDOMEN: LIVER: Nodular liver contour and a prominent left lobe of the liver consistent with cirrhosis. GALLBLADDER AND BILE DUCTS: Cholecystectomy. No intra- or extrahepatic biliary ductal dilation. PANCREAS: Unremarkable. No focal cystic or solid mass. SPLEEN: Unremarkable. Normal size without focal cystic or solid mass. ADRENALS: Unremarkable. No nodules. KIDNEYS AND URETERS: Unremarkable. Normal renal size and position. No hydronephrosis. STOMACH AND BOWEL: Large right lateral anterior abdominal wall hernia at the ostomy site with small bowel loops within it. No signs of obstruction. Status post total colectomy with ileostomy. PELVIS: APPENDIX: See above. BLADDER: Unremarkable. OVARIES: Unremarkable as visualized. No mass or complex cyst. UTERUS/CERVIX: Unremarkable. No mass. Endometrial stripe is normal in thickness and appearance. ABDOMEN and PELVIS: INTRAPERITONEAL SPACE: Unremarkable. No ascites or other fluid collection. VASCULATURE: Unremarkable. Abdominal aorta is non-dilated. LYMPH NODES: No enlarged lymph nodes. MRI/Enterography Abd/Pel IMPRESSION: 1. No acute intra-abdominal abnormality. 2. Nodular liver contour and a prominent left lobe of the liver consistent with cirrhosis. 3. Cholecystectomy. 4. Status post total colectomy with ileostomy. Electronically Signed: Fredy Turner MD at 18:00 EDT ,
[2024-05-18 09:57] LABS: CREATININE FINGERSTICK < 1.0 mg/dL (0.55-1.02); EGFR FINGERSTICK > 60.0000 mL/min (>60)
[2024-05-18 10:26] VITALS: BP 150/84; PULSE 76; RESP 16; O2SAT 99; BMI 45.2
[2024-05-18] MEDS: Glucagon 1 MG/ML Syringe IV (11:27)
[2024-05-18 11:45] VITALS: BP 155/89; PULSE 80; RESP 18; O2SAT 99
== END | disposition home or self-care (01) ==
LOC: MRI 08:56
PROVIDERS: PCP Family Medicine; Referring Provider Internal Medicine Gastroenterology; Visit Provider Internal Medicine Gastroenterology
DX: K52.9 Noninfective gastroenteritis and colitis, unspecified (principal)
CPT/HCPCS: 74183; 96374; A9575; A4216; J1610

== ENCOUNTER → 2024-06-28 | Outpatient (CLI) | payer OTHER, SELFPAY | END | disposition home or self-care (01) | PROVIDERS: PCP Family Medicine; Referring Provider Nurse Practitioner Family; Visit Provider Nurse Practitioner Family | DX: R53.83 Other fatigue (principal) | CPT/HCPCS: 36415; 82533 ==

== ENCOUNTER → 2024-09-14 | Outpatient (CLI) | payer OTHER, SELFPAY ==
[2024-09-14] VITALS (14 sets, daily range): BP systolic 104–145; BP diastolic 68–95; PULSE 70–82; RESP 13–99; TEMP 35.7; O2SAT 12–99; BMI 46.8
[2024-09-14 08:06] LABS: Platelet Count 273 K/mm3 (150-450)
[2024-09-14 08:22] LABS: International Normalized Ratio 1.1; Prothrombin Time (Protime)PT. 13.8 SECONDS (11.7-14.9)
[2024-09-14 08:23] LABS: Partial Thromboplast Time 26.6 Seconds (24.1-36.2)
[2024-09-14] MEDS: Midazolam 2 MG/2 ML Syringe IV ×2 (09:02→09:20)
--- NOTE | 2024-09-14 09:03 | CT_ITS ---
PROCEDURE: CT DIRECTED CORE LIVER BIOPSY INDICATION: Female, 49 years old. NAFLD PHYSICIAN: Dr. Renato Vuong CONSENT: Written informed consent was obtained having explained the risks, benefits and alternatives in detail with the patient who accepted the risks and agreed to proceed. Laboratory review and clinical assessment was performed. CONSCIOUS SEDATION PROTOCOL: The Drugs used were: 3 mg Versed, IV., and 75 mcg Fentanyl, IV. The sedation time was: 26 minutes. Conscious sedation was started at 9:02 AM and terminated at 9:28 AM. The conscious sedation protocol was independently monitored. RADIATION DOSAGE (If Supplied By Facility): CTDIvol = ( 19.5 ) mGy, DLP = ( 684.38 ) mGycm Individualized dose optimization techniques were used for this CT. TECHNIQUE: Using CT image guidance with image documentation, a suitable location in the right lobe of the liver was identified. Using an anterior approach, puncture of the liver was uneventful with an 18-gauge core needle system. 4, 18-gauge core samples were obtained, and submitted in formalin to the pathologist for further assessment. Followup CT scan revealed no distinct sequelae. CT/Biopsy/Inj or Needle Placement IMPRESSION: 1. CT directed core needle biopsy of the liver, using CT image guidance with image documentation as described. 2. Conscious Sedation protocol utilized with independent monitoring. Electronically Signed: Dylan Gross MD at 10:39 EST ,
[2024-09-14] MEDS: 0.9% Saline Lock 10 ML Syringe IV ×2 (09:06→09:09)
[2024-09-14] MEDS: fentaNYL 100 MCG/2 ML Ampul IV ×2 (09:07→09:25)
[2024-09-14] MEDS: Lidocaine 2% (20 ml mdv) 20 ML Vial INFILT (09:20)
--- NOTE | 2024-09-14 09:30 | LIVB_PTH ---
PATIENT: VENKAT BECERRA LOC: [place] U#:[id number] AGE/SX: 49/F ROOM: RE09/14/[address]: Dr. Jose Lopez DO : 1975 BED: DIS: 09/14/2024 SPEC #: [id number] RECD: 09/14/24 10:25 STATUS: MALI REKristin #: [id number] RONALD: 09/14/24 09:[address]: Jose Lopez DEPT: SURGICAL PATHOLOGY RECD BY: Jenny De Oliveira ENTERED: 09/14/24 10:26 SP TYPE: LIVER BX OTHR DR: Dr. Angelica Quezada MD Tissues: Liver, NOS Procedures: PAS with Diastase (control) Trichrome (control) Special Stain Group I PAS Stain (control) Surgery Specimen Level V Retic (control) Iron Stain (control) HEADER OPERATION: CT guided liver biopsy PRE-OP DIAGNOSIS: Fatty liver TISSUE SUBMITTED: 18 gauge x 4 cores MICROSCOPIC DIAGNOSIS Liver, CT guided core biopsy: Cirrhosis. Chronic hepatitis, Grade 3 (Modified [place]odell System) Hepatic steatosis. See comment. AM. 09/15/2024 COMMENT Reticulin and trichrome stains reveal broad band fibrosis with loculation of hepatic parenchyma consistent with cirrhosis. There is moderate limiting plate necrosis with expansion of portal zones and focal lobular necrosis. Iron stain does not reveal accumulation of iron in the liver parenchyma. PAS and PASD stains do not reveal accumulation of abnormal proteins. All matched controls are appropriate. Clinical correlation is suggested. MICROSCOPIC DESCRIPTION Slides are reviewed. GROSS DESCRIPTION Received is one container labeled with the patient's name and not further designated. The specimen consists of multiple elongated fragments of bob tissue measuring in aggregate 1.5 x 0.5 x <0.1cm. The specimen is submitted in its entirety in one cassette. AM. 09/14/2024 TC:3 CPT:34810,52312g7
== END | disposition home or self-care (01) ==
PROVIDERS: PCP Family Medicine; Referring Provider Internal Medicine Gastroenterology; Visit Provider Internal Medicine Gastroenterology
DX: K76.0 Fatty (change of) liver, not elsewhere classified (principal)
CPT/HCPCS: 47000; 36415; 77012; 85049; 85610; 85730; 88307; 88312; 99156; A4216; J2405

== ENCOUNTER 2024-10-04 12:42 | Emergency (ER) | payer OTHER, SELFPAY ==
[2024-10-04 12:42] VITALS: BP 174/95; PULSE 102; RESP 20; TEMP 37.2; O2SAT 96; BMI 45.8
--- NOTE | 2024-10-04 13:07 | EKG12_ITS ---
Test Reason : CP Blood Pressure : */* mmHG Vent. Rate : 93 BPM Atrial Rate : 93 BPM P-R Int : 148 ms QRS Dur : 90 ms QT Int : 366 ms P-R-T Axes : 46 -34 50 degrees QTcB Int : 455 ms Normal sinus rhythm Left axis deviation Nonspecific ST abnormality Abnormal ECG Confirmed by JULIA CARVER, FATIMAH ([id number]), assistant film editor LUCILA FELICIANO ([id number]) on 10/07/2024 2:22:43 PM Referred By: JACKIE/TODD Confirmed By: FATIMAH DUMONT MD
--- NOTE | 2024-10-04 13:13 | ED.VIS.CHEST ---
HPI History of Present Illness Chief Complaint: Chest Pain Informant: patient and spouse/S.O. Onset/Context/Timing Onset: Today and Weeks Activity at onset: sudden Timing: Continuous (Continuous is 11 AM today.) and Intermittent (Intermittent 2 to 3 weeks ago.) Quality: Positive for Aching Location: Substernal Current Severity: Mild Maximum Severity: Mild Worsened By: Movement of Torso and Coughing Relieved By: Nothing Associated Symptoms: Positive for Cough; Negative for Nausea, Vomiting, Diaphoresis, Dyspnea, Fever, Lightheadedness, Acid Reflux or Palpitations Narrative Narrative: 49-year-old female prior cardiac cath in 2008 no CAD. History of diabetes and chronic kidney disease stage II. Since she had some chest pain 2 to 3 weeks ago it was intermittent. Today since 11 AM it has been constant. She recently was diagnosed with flu a 5 days ago. She has been a lot of coughing. Says the pains worse in her chest with movement or coughing. She denies dyspnea or hemoptysis. No leg pain or swelling. No nausea or diaphoresis. No recent exertional dyspnea before she had the flu. No history of DVT or PE. Prior Similar Symptoms: Yes Recent Illness/Hospitalization: No CVD Risk Factors: Positive for Diabetes PE Risk Factors: Negative for Recent Travel/Surgery, Recent Immobilization, Prior DVT or PE, Cancer or OCP + Smoking + >/=35 TAD Risk Factors: Negative for Marfan's Syndrome or Hypertension [facility] Medical History Wears dentures Wears glasses Gastric reflux Ileostomy in place Leg cramps History of edema History of pain when walking Cardiology follow-up encounter History of echocardiogram Sciatica Erythema nodosum Osteoarthritis History of migraine headaches Gallstones Depression Hx: UTI (urinary tract infection) Seasonal allergies KENY on CPAP Pancreatic mass Iron deficiency anemia Non-alcoholic fatty liver disease Conjunctivitis, both eyes Acute pharyngitis, unspecified URI (upper respiratory infection) Acute otitis externa of right ear Contact with and (suspected) exposure to other viral communicable diseases Acute sinusitis, unspecified Anxiety Pancreatitis Former smoker CPAP (continuous positive airway pressure) dependence COPD (chronic obstructive pulmonary disease) Meningioma Endocrine tumor History of asthma Hernia Abnormal bruising Asthma Severe headache Anemia Liver disease Diabetes SOB (shortness of breath) Lung disease Kidney disease Cancer Arthritis HTN (hypertension) Neuroendocrine tumor of pancreas Facial paresthesia Facial weakness Nephrolithiasis Immunosuppressed status Ulcerative colitis Psoriasis GERD (gastroesophageal reflux disease) Home Medications ?Medication ?Instructions ?Recorded ?Last Taken ?Type albuterol sulfate 2.5 mg/3 mL 2.5 mg inhalation Q4H PRN PRN 08/25/13 Unknown History (0.083 %) solution for nebulization Bronchospasm albuterol sulfate 90 mcg/actuation 2 puff inhalation PRN PRN 08/25/13 02/25/24 04:45 History aerosol inhaler Bronchospasm atenolol 25 mg tablet 50 mg PO DAILY 08/25/13 02/25/24 05:00 History potassium citrate 10 mEq (1,080 20 meq PO BID 02/21/16 02/24/24 20:00 History mg) tablet,extended release Novolog Flexpen U-100 Insulin See Protocol PO.IVFORM ACHS 02/05/22 02/24/24 20:00 History acetaminophen 500 mg capsule 1,000 mg (2 x 500 mg) PO Q8H PRN 02/07/22 Unknown Rx PRN fever or pain #30 caps hydroxychloroquine 200 mg tablet 200 mg PO DAILY 06/26/22 02/24/24 20:18 History diphenoxylate-atropine 2.5 1 tab PO 4X/DAY PRN PRN diarrhea 5 07/31/22 Unknown Rx mg-0.025 mg tablet (Lomotil) days #20 tabs ondansetron 4 mg disintegrating 4 mg PO TID PRN nausea and 07/31/22 Unknown Rx tablet vomiting #21 tabs pantoprazole 40 mg tablet,delayed 40 mg PO BID 04/07/23 02/25/24 05:00 History release insulin glargine 100 unit/mL (3 22 unit subcut QHS 02/20/24 02/24/24 20:00 History mL) subcutaneous pen (Lantus 11 unit Solostar U-100 Insulin) nortriptyline 50 mg capsule 50 mg PO BID #60 caps 04/26/24 Unknown Rx diltiazem HCl 30 mg tablet 30 mg PO TID #90 tabs 08/16/24 Unknown Rx multivitamin 1 tab PO QDAY 08/16/24 Unknown History allopurinol 100 mg tablet 100 mg PO DAILY 09/13/24 Unknown History budesonide 3 mg 3 mg PO DAILY 09/13/24 Unknown History capsule,delayed,extended release leflunomide 20 mg tablet 20 mg PO DAILY 09/14/24 Unknown History Allergy/AdvReac Type Severity Reaction Status Date / Time codeine Allergy Severe Anaphylaxis Verified 10/04/24 12:45 hydrocodone bitartrate (From Allergy Severe Rash Verified 10/04/24 12:45 Vicodin) oxycodone HCl (From Percocet) Allergy Severe Anaphylaxis Verified 10/04/24 12:45 tapentadol (From Nucynta) Allergy Intermediate Nausea Verified 10/04/24 12:45 buprenorphine (From Butrans) Allergy Unknown Other Verified 10/04/24 12:45 latex AdvReac Mild Rash Verified 10/04/24 12:45 Family History Other Diabetes Heart disease Liver cancer Lung disease Skin cancer Thyroid disorder Surgical History History of cardiac catheterization Status post colectomy History of cholecystectomy History of lithotripsy H/O total colectomy History of appendectomy Social History Smoking Status: Former smoker alcohol intake: never ROS ROS ED ROS Narrative Recent URI secondary to flu A. Midsternal chest pain. Constitutional Constitutional ED: Denies chills or fever(s) Eyes Eyes: Reports none ENT ENT ED: Denies ear pain Cardiovascular Cardiovascular: Reports chest pain; Denies palpitations or racing heartbeat Respiratory/Chest Respiratory/Chest: Reports cough; Denies dyspnea on exertion Gastrointestinal Gastrointestinal: Denies abdominal pain, melena, nausea or vomiting Genitourinary Genitourinary ED: Denies dysuria or hematuria Musculoskeletal Musculoskeletal: Denies arthralgias Integumentary Denies abscess Neurologic Neurologic: Denies headache(s) Psychiatric Psychiatric: Denies anxiety Endocrine Endocrinology: Denies cold intolerance Hematologic/Lymphatic Hematologic/Lymphatic: Denies easy bleeding Allergic/Immunologic Allergic/Immunologic ED: Denies mouth swelling EXAM Physical Exam Narrative Exam Narrative: Well-appearing 49-year-old female. Vital signs stable afebrile. Pulse ox 96% on room air no signs hypoxia. Sitting upright in bed. Significant other at bedside. H EENT exam pupils round react light. Mytrex members. Neck nontender no JVD. No lymphadenopathy. Lungs clear to auscultation bilaterally. Dry cough. Heart regular rhythm rate about 100 no murmur. Chest wall which is reproducible midsternal chest wall pain. There is no ecchymosis bruising or crepitus. Exam is consistent with chest wall strain. Ribs nontender. Abdomen soft nontender. Moving all 4 extremities. 5 out of 5 oracle database consultant strength. Equal symmetric radial pulses. Normal dorsi plantarflexion. Calves are nontender without edema or cords. Neurologically she is awake alert no focal motor deficits. Const Vital Signs: 10/04/24 12:42 10/04/24 13:22 10/04/24 14:01 Temperature 98.9 F Temperature Source Oral Pulse Rate 102 H 87 Respiratory Rate 20 H 27 H Blood Pressure 174/95 H Blood Pressure Mean 121 Pulse Ox 96 94 Oxygen Delivery Method Room Air Room Air 10/04/24 15:18 Temperature Temperature Source Pulse Rate 90 Respiratory Rate 26 H Blood Pressure Blood Pressure Mean Pulse Ox 99 Oxygen Delivery Method Positive well nourished; Negative for cachectic, contractures or unkempt Constitutional Narrative: BMI 45. General Appearance ED: Negative for unkempt, cachectic, contractures or pallor Nutritional Appearance: Negative for cachectic HEENT Reports moist mucous membranes normocephalic and atraumatic; Negative for trauma or tenderness Eyes PERRL and EOMs intact bilaterally General Eye ED: Negative for pale conjunctiva or scleral icterus Neck no lymphadenopathy, supple and no JVD General: Negative for tenderness Chest Wall inspection of chest normal and palpation of chest normal Chest: Negative for tenderness Resp normal respiratory effort and clear to auscultation bilaterally Effort and Inspection: Negative for respiratory distress Auscultation: Negative for rales, rhonchi, wheezes or diminished lung sounds Cardio regular rate, regular rhythm, S1 normal heart sound, S2 normal heart sound and no murmurs Rate: Negative for bradycardia or tachycardic Rhythm: Negative for abnormal rhythm Peripheral Pulses: pulses 2+ throughout GI normal to inspection, nondistended, normoactive bowel sounds, soft to palpation, non-tender, non-distended and no masses Back/Spine no CVA tenderness; Negative for no thoracic nor lumbar tenderness General Back: Negative for CVA tenderness Cervical Spine: Negative for cervical spine tenderness Extremity normal to inspection General Extremety ED: Negative for edema, pulses abnormal or tenderness General Extremity: Negative for edema or pulses abnormal Neuro oriented x3 Sensorium / Orientation: awake, alert, oriented to person, oriented to place and oriented to time; Negative for confused, lethargic or stuporous Motor Exam: strength 5/5 throughout Psych mental status grossly normal Appearance: Negative for unkempt Attitude: No agitated Mood & Affect: Negative for depressed, anxious or tearful Skin no rashes or lesions noted and no wounds General Skin Exam: Negative for jaundice or pallor Rashes: No rashes noted Trauma: Negative for abrasion, laceration or puncture MDM MDM MDM Narrative Medical decision making narrative: 49-year-old female complaint chest pain is reproducible I suspect it is chest wall strain from coughing due to a recent diagnosis of influenza A. She will undergo a cardiac workup to rule out cardiac cause of chest pain. She has never had a DVT or PE or significant risk factors. Pain is not pleuritic. She is not having hemoptysis or shortness of breath. No calf pain or swelling. Repeat exam patient doing well at 3:28 PM. Exam unchanged. Test results unremarkable. Patient will be discharged to home outpatient follow-up as needed. Ice to her chest wall. Tylenol Motrin for pain and inflammation. History & Record Review Discussion w/independent historian: Patient and Family Additional record(s) reviewed:: Prior inpatient record, Prior outpatient record, Prior ED visit and Prior labs Lab Data Attestation: I reviewed the patient's lab results. Lab results narrative: CBC normal. White count of 5. H&H 13 and 41. Platelets 192. Electrolytes show sodium 133. Gap 8. Normal BUN of 7 creatinine 1.06. Glucose 268. Troponin 8. Labs: Laboratory Results - last 24 hr 10/04/24 13:16 WBC 5.5 RBC 5.17 Hgb 13.4 Hct 41.7 MCV 80.7 L MCH 25.9 L MCHC 32.1 RDW Std Deviation 42.1 RDW Coeff of Eleuterio 14.4 Plt Count 192 MPV 10.1 Immature Gran % (Auto) 0.400 Neut % (Auto) 75.4 H Lymph % (Auto) 11.4 L [place] % (Auto) 11.0 H Eos % (Auto) 1.4 Baso % (Auto) 0.4 Absolute Neuts (auto) 4.2 Absolute Lymphs (auto) 0.63 L Nucleated RBC % 0 Sodium 133 L Potassium 3.7 Chloride 98 Carbon Dioxide 27.0 Anion Gap 8 BUN 7 Creatinine 1.06 H Estim Creat Clear Calc 90.33 Est GFR (MDRD) Af Amer 70 Est GFR (MDRD) Non-Af 58 L BUN/Creatinine Ratio 6.6 L Glucose 268 H Calcium 9.0 Troponin I High Sens 8 Radiography Chest X-Ray - ED: 1 View, Read by ED Physician, Read by Radiologist, Heart, Lungs, Mediastinum, Bony Structures, No Acute Disease and Chronic Changes Diagnostic Testing: Clinical Impression(s) from Imaging Studies Chest X-Ray 10/04/24 14:11 IMPRESSION: No radiographic evidence of acute cardiopulmonary disease. Electronically Signed: Maya Dennis MD at 14:24 EST , Chest x-ray, portable, single view, interpreted by myself and the radiologist shows no acute abnormality. Normal cardiac silhouette. Normal lung cheney. Rhythm Strip Rhythm Strip: Sinus Rhythm Rate: 93 Ectopy: None EKG Initial EKG: Attestation: I personally reviewed and interpreted this EKG as follows: Interpretation: Sinus Rhythm and No Acute Injury Pattern Comments: Normal sinus rhythm rate and 93. No acute signs of LA or ischemia. Discharge Plan Triage Chief Complaint: Chest Pain ED Provider: Nuno Luna Dx/Rx/DC Orders Clinical Impression: Chest wall muscle strain, Influenza, Chest pain, History of diabetes mellitus Instructions: ED Chest Wall Strain Prescriptions: No Action pantoprazole 40 mg tablet,delayed release (DR/EC) 40 mg PO BID nortriptyline 50 mg capsule 50 mg PO BID Qty: 60 9RF multivitamin Tablet 1 tab PO QDAY diltiazem HCl 30 mg tablet 30 mg PO TID Qty: 90 2RF albuterol sulfate 2.5 MG/3 ML solution for nebulization 2.5 mg inhalation Q4H PRN PRN (Reason: Bronchospasm) Patient Comments: Breathing atenolol 25 MG tablet 50 mg PO DAILY Patient Comments: Blood Pressure albuterol sulfate 1 INHALER inhaler 2 puff inhalation PRN PRN (Reason: Bronchospasm) Patient Comments: Breathing tx potassium citrate 10 MEQ tablet extended release 20 meq PO BID Patient Comments: supplement Novolog Flexpen U-100 Insulin See Protocol PO.IVFORM ACHS Protocol: 6. Sliding Scale Insulin Custom Condition: mg/dl range Dose/Route: Number of Units Protocol Text: Custom Sliding Scale Patient Comments: SLIDING SCALE acetaminophen 500 mg capsule 1,000 mg PO Q8H PRN PRN (Reason: fever or pain) Qty: 30 0RF hydroxychloroquine 200 mg tablet 200 mg PO DAILY ondansetron 4 mg tablet,disintegrating 4 mg PO TID PRN (Reason: nausea and vomiting) Qty: 21 0RF diphenoxylate-atropine [Lomotil] 2.5-0.025 mg tablet 1 tab PO 4X/DAY PRN PRN (Reason: diarrhea) 5 Days Qty: 20 0RF insulin glargine [Lantus Solostar U-100 Insulin] 100 unit/mL (3 mL) insulin pen 22 unit subcut QHS allopurinol 100 mg tablet 100 mg PO DAILY budesonide 3 mg capsule,delayed,extend.release 3 mg PO DAILY leflunomide 20 mg tablet 20 mg PO DAILY Primary Care Provider: Angelica Quezada Referrals: Angelica Quezada MD [Primary Care Provider] - 1 Week if not improving Activity Restrictions/Additional Instructions: Ice to chest wall. Motrin for pain and inflammation and Tylenol for pain. Follow-up with your doctor if not improving. Or return if worse. No heavy lifting with your chest until being pain-free for a while. Print Language: Finnish Disposition Disposition: Home, Self Care
[2024-10-04 13:37] LABS: Absolute Lymphocyte Count 0.63 X10^3/uL (0.83-4.51); Absolute Neutrophil Count 4.2 X10^3/uL (2.0-7.7); Basophil# 0.02 X10^3/uL; Basophil% 0.4 % (0-1); Eosinophil# 0.08 X10^3/uL; Eosinophils% 1.4 % (0-5); Hematocrit 41.7 % (37-47); Hemoglobin 13.4 g/dL (12.0-15.0); Lymphocyte # 0.63 X10^3/ul (0.83-4.51); Lymphocyte % 11.4 % (19-41); Mean Corp Hgb Conc 32.1 g/dL (32-36); Mean Corpuscular Hgb 25.9 pg (27.0-32.0); Mean Corpuscular Volume 80.7 fL (81-99); Mean Platelet Vol. 10.1 fl (6.2-12.0); Monocyte# 0.61 X10^3/uL; NRBC Flagged by Analyzer 0 % (0-5); Neutrophil # 4.18 X10^3/uL (2.7-7.7); Neutrophil % 75.4 % (47-70); Platelet Count 192 K/mm3 (150-450); RBC Distribution Width CV 14.4 % (11.6-14.6); RBC Distribution Width SD 42.1 fl (35.1-43.9); Red Blood Count 5.17 M/mm3 (4.2-5.4); White Blood Count 5.5 K/mm3 (4.4-11.0)
[2024-10-04 13:43] LABS: Anion Gap 8 (5-15); BUN 7 mg/dL (7-18); BUN/Creat Ratio 6.6 RATIO (10-20); Chloride 98 mmol/L (98-107); Creatinine, Serum 1.06 mg/dL (0.55-1.02); EST Glomerular Filtration Rate 58 mL/min (>60); Est Glom Filt Rate - Afr Amer 70 mL/min (>60); Estimated Creatinine Clearance 90.33 ml/min; Glucose 268 mg/dL (74-106); Potassium 3.7 mmol/L (3.5-5.1); Sodium Level 133 mmol/L (136-145); Troponin-I HS (w/2H Reflex) 8 pg/mL (3.0-54.0)
[2024-10-04 14:01] VITALS: PULSE 87; RESP 27; O2SAT 94
--- NOTE | 2024-10-04 14:11 | RAD_ITS ---
INDICATION: chest pain EXAMINATION/TECHNIQUE: X-RAY - XR Chest 1 View COMPARISON: February 13, 2018 FINDINGS: LINES/DEVICES: None. LUNGS: No new consolidation, edema or effusion. No pneumothorax. MEDIASTINUM AND CARDIOVASCULAR STRUCTURES: Cardiac silhouette not enlarged. Central airways and mediastinal contour are unremarkable. BONES AND SOFT TISSUES: There is a right posterior fifth rib deformity suggestive of a healed fracture. RAD/Chest 1 View (Portable) IMPRESSION: No radiographic evidence of acute cardiopulmonary disease. Electronically Signed: Maya Dennis MD at 14:24 EST ,
[2024-10-04 15:18] VITALS: PULSE 90; RESP 26; O2SAT 99
[2024-10-04 15:21] LABS: Reflex Troponin-HS? (from REC) Y
[2024-10-04 15:39] VITALS: BP 134/74
== END 2024-10-04 15:39 | disposition home or self-care (01) ==
PROVIDERS: Emergency Provider Emergency Medicine; PCP Family Medicine; Visit Provider Emergency Medicine
DX: R07.9 Chest pain, unspecified (principal); J44.9 Chronic obstructive pulmonary disease, unspecified; E11.22 Type 2 diabetes mellitus with diabetic chronic kidney disease; Z79.4 Long term (current) use of insulin; Z87.891 Personal history of nicotine dependence; S29.011A Strain of muscle and tendon of front wall of thorax, initial encounter; J10.1 Influenza due to other identified influenza virus with other respiratory manifestations; N18.2 Chronic kidney disease, stage 2 (mild); G47.33 Obstructive sleep apnea (adult) (pediatric); Z99.89 Dependence on other enabling machines and devices; K21.9 Gastro-esophageal reflux disease without esophagitis; Z79.899 Other long term (current) drug therapy; Z90.49 Acquired absence of other specified parts of digestive tract; I12.9 Hypertensive chronic kidney disease with stage 1 through stage 4 chronic kidney disease, or unspecified chronic kidney disease
CPT/HCPCS: 71045; 80048; 84484; 85025; 93005; 99284

== ENCOUNTER → 2025-02-03 | Outpatient (CLI) | payer OTHER, SELFPAY ==
[2025-02-03 10:18] LABS: Absolute Lymphocyte Count 1.37 X10^3/uL (0.83-4.51); Absolute Neutrophil Count 5.3 X10^3/uL (2.0-7.7); Basophil# 0.04 X10^3/uL; Basophil% 0.5 % (0-1); Eosinophil# 0.37 X10^3/uL; Eosinophils% 4.9 % (0-5); Hematocrit 44.2 % (37-47); Hemoglobin 13.9 g/dL (12.0-15.0); Lymphocyte # 1.37 X10^3/ul (0.83-4.51); Lymphocyte % 18.2 % (19-41); Mean Corp Hgb Conc 31.4 g/dL (32-36); Mean Corpuscular Hgb 26.4 pg (27.0-32.0); Mean Corpuscular Volume 83.9 fL (81-99); Mean Platelet Vol. 10.4 fl (6.2-12.0); Monocyte# 0.41 X10^3/uL; Monocyte% 5.4 % (0-10); NRBC Flagged by Analyzer 0 % (0-5); Neutrophil # 5.31 X10^3/uL (2.7-7.7); Neutrophil % 70.5 % (47-70); Platelet Count 204 K/mm3 (150-450); RBC Distribution Width CV 19.2 % (11.6-14.6); RBC Distribution Width SD 57.2 fl (35.1-43.9); Red Blood Count 5.27 M/mm3 (4.2-5.4); White Blood Count 7.5 K/mm3 (4.4-11.0)
[2025-02-03 10:35] LABS: Prothrombin Time (Protime)PT. 13.6 SECONDS (11.7-14.9)
[2025-02-03 10:50] LABS: ALB/GLOB Ratio 0.9 RATIO (0.9-2.4); AST(SGOT) 32 U/L (<=31); Alanine Aminotransfer ALT/SGPT 25 U/L (<=34); Albumin, Serum 3.8 g/dL (3.5-5.0); Alkaline Phosphatase 120 U/L (35-104); Anion Gap 8 (5-15); BUN 9 mg/dL (4-19); BUN/Creat Ratio 9.8 RATIO (10-20); Calcium,Total 9.2 mg/dL (7.6-11.0); Carbon Dioxide 24.6 mmol/L (21.0-32.0); Chloride 105 mmol/L (98-108); Creatinine, Serum 0.87 mg/dL (0.70-1.20); EST Glomerular Filtration Rate 80 (>60); Glucose 150 mg/dL (70-99); Potassium 3.8 mmol/L (3.3-5.1); Protein, Total 7.7 g/dL (5.9-8.4); Sodium Level 137 mmol/L (133-145); Total Bilirubin 0.53 mg/dL (0.00-1.30)
== END | disposition home or self-care (01) ==
PROVIDERS: PCP Family Medicine; Referring Provider Internal Medicine Gastroenterology; Visit Provider Internal Medicine Gastroenterology
DX: K74.60 Unspecified cirrhosis of liver (principal)
CPT/HCPCS: 36415; 80053; 82140; 85025; 85610

== ENCOUNTER → 2025-02-22 | Outpatient (CLI) | payer OTHER, SELFPAY ==
[2025-02-22 08:11] LABS: Cholesterol 190 mg/dL (<=200); High Density Lipoprotein 83 mg/dL; Low Density Lipoprotein Calc. 86 mg/dL; Triglycerides 106 mg/dL; Very Low Density Lipoprotein 21 mg/dL (5-40)
[2025-02-22 08:45] LABS: Microalbumin,Random Urine < 12.0 mg/L (NO RANGE EST.); Microalbumin:Creatinine Ratio UNABLE TO CALCULATE mg/g CRE
== END | disposition home or self-care (01) ==
PROVIDERS: PCP Family Medicine; Referring Provider Family Medicine; Visit Provider Family Medicine
DX: E11.9 Type 2 diabetes mellitus without complications (principal); I10 Essential (primary) hypertension
CPT/HCPCS: 36415; 80061; 82043; 82570

== ENCOUNTER → 2025-05-16 | Outpatient (CLI) | payer OTHER, SELFPAY ==
[2025-05-16 10:35] LABS: Hematocrit 47.2 % (37-47); Hemoglobin 15.9 g/dL (12.0-15.0); Immature Granulocytes Count 0.070 X10^3/uL (0.0-0.0); Mean Corp Hgb Conc 33.7 g/dL (32-36); Mean Corpuscular Volume 88.4 fL (81-99); Mean Platelet Vol. 9.3 fl (6.2-12.0); NRBC Flagged by Analyzer 0 % (0-5); Platelet Count 223 K/mm3 (150-450); RBC Distribution Width CV 14.2 % (11.6-14.6); RBC Distribution Width SD 45.4 fl (35.1-43.9); Red Blood Count 5.34 M/mm3 (4.2-5.4); White Blood Count 10.2 K/mm3 (4.4-11.0)
[2025-05-16 10:45] LABS: Prothrombin Time (Protime)PT. 13.9 SECONDS (11.7-14.9)
[2025-05-16 11:27] LABS: Ammonia 26.1 umol/L (11-51)
[2025-05-16 11:33] LABS: AST(SGOT) 35 U/L (<=31); Alanine Aminotransfer ALT/SGPT 29 U/L (<=34); Albumin, Serum 3.8 g/dL (3.5-5.0); Alkaline Phosphatase 127 U/L (35-104); Anion Gap 11 (5-15); BUN 10 mg/dL (4-19); BUN/Creat Ratio 10.1 RATIO (10-20); Calcium,Total 9.4 mg/dL (7.6-11.0); Carbon Dioxide 24.1 mmol/L (21.0-32.0); Chloride 102 mmol/L (98-108); Globulin 4.3 g/dL (2.2-4.2); Glucose 114 mg/dL (70-99); Potassium 4.4 mmol/L (3.3-5.1)
== END | disposition home or self-care (01) ==
LOC: LAB 10:19
PROVIDERS: PCP Family Medicine; Referring Provider Internal Medicine Gastroenterology; Visit Provider Internal Medicine Gastroenterology
DX: K74.60 Unspecified cirrhosis of liver (principal)
CPT/HCPCS: 36415; 80053; 82140; 85025; 85610

== ENCOUNTER → 2025-09-13 | Outpatient (CLI) | payer OTHER, SELFPAY ==
[2025-09-13 16:45] LABS: Hematocrit 49.4 % (37-47); Hemoglobin 16.8 g/dL (12.0-15.0); Immature Granulocytes Count 0.070 X10^3/uL (0.0-0.0); Mean Corp Hgb Conc 34.0 g/dL (32-36); Mean Corpuscular Volume 89.3 fL (81-99); Mean Platelet Vol. 9.5 fl (6.2-12.0); NRBC Flagged by Analyzer 0 % (0-5); Platelet Count 227 K/mm3 (150-450); RBC Distribution Width CV 13.8 % (11.6-14.6); RBC Distribution Width SD 45.1 fl (35.1-43.9); Red Blood Count 5.53 M/mm3 (4.2-5.4); White Blood Count 9.6 K/mm3 (4.4-11.0)
[2025-09-13 16:56] LABS: Prothrombin Time (Protime)PT. 13.3 SECONDS (11.7-14.9)
[2025-09-13 16:57] LABS: Partial Thromboplast Time 29.0 Seconds (24.1-36.2)
[2025-09-13 17:10] LABS: Ammonia 25.3 umol/L (11-51)
[2025-09-13 17:14] LABS: AST(SGOT) 25 U/L (<=31); Alanine Aminotransfer ALT/SGPT 24 U/L (<=34); Albumin, Serum 3.7 g/dL (3.5-5.0); Alkaline Phosphatase 125 U/L (35-104); Anion Gap 9 (5-15); BUN 8 mg/dL (4-19); BUN/Creat Ratio 8.4 RATIO (10-20); Calcium,Total 9.5 mg/dL (7.6-11.0); Carbon Dioxide 27.9 mmol/L (21.0-32.0); Chloride 100 mmol/L (98-108); Globulin 4.3 g/dL (2.2-4.2); Glucose 132 mg/dL (70-99); Potassium 4.3 mmol/L (3.3-5.1)
== END | disposition home or self-care (01) ==
LOC: LAB 16:23
PROVIDERS: PCP Family Medicine; Referring Provider Internal Medicine Gastroenterology; Visit Provider Internal Medicine Gastroenterology
DX: K74.60 Unspecified cirrhosis of liver (principal); K51.90 Ulcerative colitis, unspecified, without complications
CPT/HCPCS: 36415; 80053; 82140; 85025; 85610; 85730

== ENCOUNTER → 2025-09-30 | Outpatient (CLI) | payer OTHER, SELFPAY ==
--- NOTE | 2025-09-30 08:36 | US_ITS ---
PROCEDURE: ABD LIMITED W/ ELASTOGRAPHY REASON FOR EXAM: CIRRHOSIS COMPARISON: October 04, 2016. TECHNIQUE: Procedure Code: [id number] Modality: US Procedure: ABD LIMITED W/ ELASTOGRAPHY Right upper quadrant abdominal ultrasound. [facility] ElastQ [facility] shear wave elastography for non-invasive assessment of liver tissue stiffness. [facility] EPIQ Elite. FINDINGS: LIVER: Size: Enlarged (hepatomegaly) Length: 20.6 cm Echotexture: Diffusely echogenic suggesting fatty infiltration Contour: Normal Lesions: None identified Elastography: EQI Med: 5.9 kPa EQI Med Tanner: 1.4 m/s IQR/Med: 14.3 %* GALLBLADDER: Surgically absent. COMMON BILE DUCT: Normal measuring 5.4 mm . PANCREAS: Normal Visualized portions of the right kidney are unremarkable. No right upper quadrant ascites. US/ABD Limited w/ Elastography IMPRESSION: Mild hepatic fibrosis. Hepatomegaly and diffuse fatty infiltration of the liver. Reference Values: SRU <1.37 m/s (5.7kPa): No to mild fibrosis 1.37 m/s - 2.2 m/s: Moderate to severe fibrosis >2.2 m/s (15kPa): Significant fibrosis / cirrhosis METAVIR Score F2 or higher: 1.34 m/s (5.7kPa) F3 or higher: 1.55 m/s (7.3kPa) F4: 1.80 m/s (10kPa) * If the IQR/Med is >30%, the variance in the measurements is a large and the a ccuracy of the measurement may be in question. Reading Location: [facility]
== END | disposition home or self-care (01) ==
LOC: US 08:33
PROVIDERS: PCP Family Medicine; Referring Provider Internal Medicine Gastroenterology; Visit Provider Internal Medicine Gastroenterology
DX: K74.60 Unspecified cirrhosis of liver (principal); K76.0 Fatty (change of) liver, not elsewhere classified
CPT/HCPCS: 76705; 76981